=== PATIENT | male | born 1940 | race Caucasian/White ===

== ENCOUNTER → 2020-05-05 10:56 | Outpatient (CLI) | payer MEDICARE, OTHER, SELFPAY ==
--- NOTE | 2020-05-05 | DI.MRI.S_ITS ---
PROCEDURE: MR LUMBAR SPINE WO CON INDICATIONS: Radiculopathy, lumbar region TECHNIQUE: Noncontrast sagittal T1 spin echo and T2 fast echo, sagittal STIR, axial T1 and T2 fast spin echo through the lumbar spine. In cases with scoliosis, additional coronal T2 fast spin echo may be performed. COMPARISON: [facility], MR, MR LUMBAR SPINE WITHOUT CONTRAST, 01/06/2013, 12:10. [facility] [place], CR, XR LUMBAR SPINE 2 OR 3 VIEWS, 11/19/2019, 13:34. FINDINGS: Image quality: Excellent. Alignment and Curvature: 5 lumbar type vertebral bodies are present by plain film. There is mild grade 1 retrolisthesis of L1 on L2, L2 on L3, and L5 on S1. Mild grade 1 anterolisthesis of L4 on L5. Bone Marrow: Marrow is of normal overall signal. No acute vertebral body compression fractures. Posterior fusion of L4-L5 is been performed with paired posterior rods and pedicle screws. There is mild reactive signal within the endplates adjacent to the T11-T12, L1-L2, L2-L3, L3-L4, and L5-S1 intervertebral discs. Spinal Cord: Conus medullaris terminates at the mid L1 level. Visualized cord demonstrates normal signal and size. Paraspinous Soft Tissues: No paravertebral masses. 45 mm diameter infrarenal abdominal aortic aneurysm is present. 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 L1-L2: Moderate disc desiccation. Mild diffuse disc bulge. Mild facet and ligamentum flavum hypertrophy. Mild canal stenosis. Moderate subarticular foraminal stenosis bilaterally. No change. L2-L3: Moderate disc desiccation. Mild diffuse disc bulge. Mild facet and ligamentum flavum hypertrophy. Mild epidural lipomatosis. Mild canal stenosis. Moderate right and mild left foraminal stenosis. No change. L3-L4: Severe disc height loss and desiccation. Moderate diffuse disc bulge/osteophyte. Moderate bilateral facet hypertrophy. Decreased, moderate canal stenosis. Increased, severe bilateral foraminal stenosis with bilateral L3 nerve root compression. L4-L5: Status post fusion. Severe disc height loss. Mild residual diffuse disc bulge. Mild bilateral facet hypertrophy. There is decreased, moderate canal stenosis. There is no change in severe bilateral foraminal stenosis with bilateral L4 nerve root compression. L5-S1: Moderate disc height loss and desiccation. Mild diffuse disc bulge with superimposed broad-based right far lateral protrusion. Moderate bilateral facet hypertrophy. Mild canal stenosis. Mild left foraminal stenosis is unchanged. There is increased, severe right foraminal stenosis with right L5 nerve root compression. IMPRESSION: 1. Aortoiliac aneurysms. 2. Multilevel degenerative disc and facet disease, as well as ligamentum flavum hypertrophy and epidural lipomatosis. 3. Postsurgical sequelae. 4. Multilevel canal stenoses, worst at L3-L4 and L4-L5, where there are moderate canal stenosis present. 5. Multilevel foraminal stenoses, worst at L3-L4, L4-L5, and L5-S1 where there is associated intraforaminal nerve root compression as described above. Recommend correlation with clinical symptoms to ascertain relevance of these findings. Dictated by: Joseph Silveira M.D. on 05/05/2020 at 11:43 Approved by: Joseph Silveira M.D. on 05/05/2020 at 11:49
== END ==
PROVIDERS: Referring Provider Physical Medicine & Rehabilitation; Visit Provider Physical Medicine & Rehabilitation
DX: I71.4 Abdominal aortic aneurysm, without rupture (principal); I72.3 Aneurysm of iliac artery; M51.16 Intervertebral disc disorders with radiculopathy, lumbar region; M51.17 Intervertebral disc disorders with radiculopathy, lumbosacral region; M48.061 Spinal stenosis, lumbar region without neurogenic claudication; M48.07 Spinal stenosis, lumbosacral region; E88.2 Lipomatosis, not elsewhere classified; Z98.1 Arthrodesis status
CPT/HCPCS: 72148

== ENCOUNTER → 2020-12-22 10:07 | Outpatient (CLI) | payer MEDICARE, OTHER, SELFPAY ==
--- NOTE | 2020-12-22 | DI.CT.S_ITS ---
PROCEDURE: CT CHEST WO CON INDICATIONS: Other nonspecific abnormal finding of lung field TECHNIQUE: Noncontrast 5 mm thick sections acquired from the pulmonary apices to the posterior costophrenic angles. 1 mm lung window, 5 mm thick coronal and sagittal and 7 mm axial MIP reformats were then acquired. For radiation dose reduction, the following was used: automated exposure control, adjustment of mA and/or kV according to patient size. COMPARISON: [facility], , CT THORAX W/O CONTRAST, 12/17/2017, 8:28. [facility], , CT THORAX W/O CONTRAST, 09/05/2018, 9:18. FINDINGS: Lungs: Scattered subsegmental atelectasis and/or scarring. No focal consolidation. Upper lobe predominant centrilobular emphysema as before. Airway thickening in keeping with nonspecific bronchitis and/or reactive airways disease. There is unchanged appearance of 7 mm pulmonary nodule involving the left fissure, with adjacent smaller more medial fissural nodular thickening also unchanged. In the right lung, there is unchanged appearance of 6-7 mm nodule seen on image 200 series 3 as well as more inferiorly on image 216/3 measuring 5 mm. Overall, grossly stable examination since 09/05/18 Pleura: No pleural effusion or pneumothorax. Heart: Heart size is normal. No pericardial effusion. Mild to moderate coronary artery calcifications. Chest nodes: Normal. Thyroid gland: Negative Aorta: Normal in size. Pulmonary arteries: Normal Esophagus: Normal Upper abdomen: Low-attenuation presumed left adrenal adenoma is unchanged since 2019. . Bones: Normal. IMPRESSION: Overall, stable appearance of bilateral subcentimeter nodular foci since 2019 therefore presumed sequela of prior granulomatous disease. Redemonstrated severe bilateral upper lobe predominant centrilobular emphysema. Scattered subsegmental atelectasis and/or scarring. No focal consolidation. Additional chronic and incidental findings as above. Screening lung CT could be performed in 1 year if the patient meets threshold criteria. Dictated by: James Maria M.D. on 12/22/2020 at 13:42 Approved by: James Maria M.D. on 12/22/2020 at 13:49
== END ==
PROVIDERS: PCP Family Medicine; Referring Provider Family Medicine; Visit Provider Family Medicine
DX: R91.8 Other nonspecific abnormal finding of lung field (principal); J43.2 Centrilobular emphysema
CPT/HCPCS: 71250

== ENCOUNTER → 2020-12-23 09:30 | Outpatient (CLI) | payer MEDICARE, OTHER, SELFPAY ==
--- NOTE | 2020-12-23 | DI.US.S_ITS ---
PROCEDURE: US RETRO PERITONEAL LIMITED INDICATIONS: HX AAA TECHNIQUE: Real time scanning was performed of the aorta and iliac arteries, with image documentation. COMPARISON: None. FINDINGS: Aorta: Aortic stent graft is been placed but is suboptimally visualized by ultrasound. Proximal aortic diameter measures 3.0 cm. Mid-aorta measures 2.9 cm. Distal aortic diameter 4.8 cm AP x 5.7 cm transversely cm. Moderate amount of intraluminal thrombus present. Iliac arteries: Right common iliac artery measures 1 point cm. Left common iliac artery measures 0.7 cm. IMPRESSION: Aortic stent graft has been placed and is suboptimally visualized. Distal abdominal aortic aneurysm measuring up to 5.7 cm in maximal transverse diameter. May consider CT for further assessment. Dictated by: Leonides TOURE Interpreted: Crow Renee MD on 12/23/2020 at 12:08 Transcribed by: TRISHA on 12/23/2020 at 12:13 Approved by: Crow Renee M.D. on 12/23/2020 at 12:44
== END ==
PROVIDERS: PCP Family Medicine; Referring Provider Family Medicine; Visit Provider Family Medicine
DX: I71.4 Abdominal aortic aneurysm, without rupture (principal); Z86.79 Personal history of other diseases of the circulatory system
CPT/HCPCS: 76775

== ENCOUNTER 2021-12-26 14:47 | Emergency (ER) | payer MEDICARE, OTHER, SELFPAY ==
[2021-12-26] VITALS (14 sets, daily range): BP systolic 78–136; BP diastolic 48–66; PULSE 69–115; RESP 16–25; TEMP 36.4; O2SAT 90–97; BMI 27.1
--- NOTE | 2021-12-26 15:12 | ED_ITS ---
HPI - Abdominal Pain General Chief Complaint: Abdominal Pain Stated Complaint: vomiting/abd. pain/dizzy Time Seen by Provider: 12/26/21 14:53 Source: patient and family Mode of arrival: Wheelchair History of Present Illness HPI narrative: Patient is an 81-year-old male history of hypertension hypothyroid cardiac arrhythmia which he says is not atrial fibrillation presenting today with vomiting for the last 4 days. He says he is unable to keep anything down. He feels dizzy and lightheaded whenever he stands up. He has some lower abdominal pain as well. Denies any diarrhea. No fever chills chest pain heart palpitations shortness of breath. He has not passed out. He just feels very unsteady on his feet. Related Data Previous Rx's Medication Instructions Recorded ondansetron 4 mg disintegrating 4 mg PO Q8H PRN nausea and 12/26/21 tablet vomiting #10 tabs Allergies Allergy/AdvReac Type Severity Reaction Status Date / Time No Known Drug Allergies Allergy Verified 12/26/21 15:24 Review of Systems Review of Systems Narrative: GENERAL: Denies chills, fatigue, malaise, fever, sweats, travel HEENT: Denies sinus pain, ear pain, sore throat, difficulty swallowing, neck pain RESPIRATORY: Denies dyspnea, cough, wheezing, hemoptysis, sputum. CARDIOVASCULAR: Denies chest pain, palpitations, orthopnea, edema GASTROINTESTINAL: See HPI : Denies dysuria, frequency, incontinence, hematuria, urinary retention, flank pain. MUSCULOSKELETAL: Denies weakness, joint pain, or bony pain SKIN: No rash, no erythema, no pruritus NEUROLOGIC: Denies weakness, dizziness, headache, numbness, change in speech, confusion PSYCHIATRIC: No concerning psychosocial issues. 12 point review of systems is negative except for those stated above and HPI Patient History Social History Smoking Status: Never smoker Smoking Status: Never smoker alcohol intake frequency: 0-2 drinks per day Substance Use Type: does not use Exam Initial Vital Signs Initial Vital Signs: Vital Signs Temperature 97.5 F L 12/26/21 14:58 Pulse Rate 91 H 12/26/21 14:58 Respiratory Rate 22 12/26/21 14:58 Blood Pressure 127/63 12/26/21 14:58 Pulse Oximetry 93 12/26/21 14:58 Oxygen Delivery Method 12/26/21 14:58 GENERAL: Alert pleasant 81-year-old male and in no acute distress. HEENT: Head atraumatic,EOMI, pupils reactive, face symmetric, moist mucous membranes CARDIOVASCULAR: Irregularly irregular RESPIRATORY: Breath sounds equal bilaterally, no wheezes rales or rhonchi. ABDOMEN: Soft, umbilical hernia present and reducible, nontender no guarding no rebound no right upper quadrant pain no epigastric pain EXTREMITIES: Normal range of motion, no clubbing or edema. Neurovascularly intact NEUROLOGICAL: Alert and oriented x4. SKIN: Warm, dry, no laceration, no petechiae, no rashes or lesions. Course Orders Ordered: ED Orders 12/26/21 14:50 Lactate (Lactic Acid) Stat Troponin & CK Cardiac Panel Stat 12/26/21 14:55 Complete Blood Count AUTO DIFF Stat Comprehensive Metabolic Panel Stat Lipase Stat 12/26/21 15:13 Chest [XR chest 1V] Stat EKG-12 Lead Stat 12/26/21 16:13 CT abdomen pelvis w con Stat 12/26/21 17:30 Urine Microscopic Stat Discontinued Medications Sodium Chloride (Normal Saline 0.9%) 1,000 mls @ 1,000 mls/hr IV BOLUS ONE Stop: 12/26/21 16:12 Last Infusion: 12/26/21 16:17 Dose: 0 mls/hr Documented By: Admin: 12/26/21 15:24 Dose: 1,000 mls/hr Documented By: AT Sodium Chloride (Normal Saline 0.9%) 1,000 mls @ 1,000 mls/hr IV BOLUS ONE Stop: 12/26/21 17:12 Last Infusion: 12/26/21 17:45 Dose: 0 mls/hr Documented By: Admin: 12/26/21 16:42 Dose: 1,000 mls/hr Documented By: AT Ondansetron HCl (Ondansetron 4 Mg/2 Ml Inj) 4 mg IV NOW ONE Stop: 12/26/21 17:29 Last Admin: 12/26/21 17:47 Dose: 4 mg Documented By: CHAO Vital Signs Vital signs: Vital Signs - 8 hr 12/26/21 14:58 12/26/21 15:21 12/26/21 15:23 Temperature 97.5 F L Pulse Rate 91 H 95 H Pulse Rate [Orthostatic Lying] 83 Pulse Rate [Orthostatic Sitting] 101 H Pulse Rate [Orthostatic Standing] 115 H Respiratory Rate 22 20 Blood Pressure 127/63 Blood Pressure [Orthostatic Lying] 134/66 Blood Pressure [Orthostatic Sitting] 81/54 L Blood Pressure [Orthostatic Standing] 78/48 L Pulse Oximetry 93 92 Oxygen Delivery Method Room Air Room Air 12/26/21 15:25 12/26/21 15:25 12/26/21 15:30 Temperature Pulse Rate 94 H Pulse Rate [Orthostatic Lying] Pulse Rate [Orthostatic Sitting] Pulse Rate [Orthostatic Standing] Respiratory Rate 18 Blood Pressure 108/57 L 94/56 L Blood Pressure [Orthostatic Lying] Blood Pressure [Orthostatic Sitting] Blood Pressure [Orthostatic Standing] Pulse Oximetry 91 Oxygen Delivery Method Room Air 12/26/21 15:30 12/26/21 16:00 12/26/21 16:01 Temperature Pulse Rate 86 84 80 Pulse Rate [Orthostatic Lying] Pulse Rate [Orthostatic Sitting] Pulse Rate [Orthostatic Standing] Respiratory Rate 19 23 21 Blood Pressure Blood Pressure [Orthostatic Lying] Blood Pressure [Orthostatic Sitting] Blood Pressure [Orthostatic Standing] Pulse Oximetry 91 95 Oxygen Delivery Method Room Air 12/26/21 16:01 12/26/21 16:30 12/26/21 16:30 Temperature Pulse Rate 79 Pulse Rate [Orthostatic Lying] Pulse Rate [Orthostatic Sitting] Pulse Rate [Orthostatic Standing] Respiratory Rate 19 Blood Pressure 102/65 118/56 L Blood Pressure [Orthostatic Lying] Blood Pressure [Orthostatic Sitting] Blood Pressure [Orthostatic Standing] Pulse Oximetry 97 Oxygen Delivery Method 12/26/21 17:00 12/26/21 17:00 12/26/21 18:06 Temperature Pulse Rate 72 80 Pulse Rate [Orthostatic Lying] Pulse Rate [Orthostatic Sitting] Pulse Rate [Orthostatic Standing] Respiratory Rate 21 16 Blood Pressure 121/57 L Blood Pressure [Orthostatic Lying] Blood Pressure [Orthostatic Sitting] Blood Pressure [Orthostatic Standing] Pulse Oximetry 97 90 L Oxygen Delivery Method 12/26/21 17:30 12/26/21 17:30 12/26/21 18:00 Temperature Pulse Rate 69 Pulse Rate [Orthostatic Lying] Pulse Rate [Orthostatic Sitting] Pulse Rate [Orthostatic Standing] Respiratory Rate 25 H Blood Pressure 128/60 114/54 L Blood Pressure [Orthostatic Lying] Blood Pressure [Orthostatic Sitting] Blood Pressure [Orthostatic Standing] Pulse Oximetry 95 Oxygen Delivery Method 12/26/21 18:00 12/26/21 18:04 12/26/21 18:04 Temperature Pulse Rate 88 77 Pulse Rate [Orthostatic Lying] Pulse Rate [Orthostatic Sitting] Pulse Rate [Orthostatic Standing] Respiratory Rate 20 19 Blood Pressure 136/62 Blood Pressure [Orthostatic Lying] Blood Pressure [Orthostatic Sitting] Blood Pressure [Orthostatic Standing] Pulse Oximetry 93 Oxygen Delivery Method 12/26/21 18:30 12/26/21 18:30 Temperature Pulse Rate 76 Pulse Rate [Orthostatic Lying] Pulse Rate [Orthostatic Sitting] Pulse Rate [Orthostatic Standing] Respiratory Rate 18 Blood Pressure 114/64 Blood Pressure [Orthostatic Lying] Blood Pressure [Orthostatic Sitting] Blood Pressure [Orthostatic Standing] Pulse Oximetry 96 Oxygen Delivery Method MDM - Abdominal Pain Lab Data Result diagrams: 12/26/21 14:55 12/26/21 14:55 Labs: Lab Results 12/26/21 12/26/21 12/26/21 Range/Units 14:50 14:50 14:55 WBC 13.5 H (4.5-11.0) X10^3/uL RBC 5.33 (4.5-5.9) X10^6/uL Hgb 14.4 (13.5-17.5) g/dL Hct 42.9 (41-53) % MCV 80.5 (80-100) fL MCH 27.0 (26-34) PG MCHC 33.5 (30-36) % RDW 16.2 H (11.6-14.8) % Plt Count 189 (150-400) X10^3/uL Neut % (Auto) 86.0 H (50-75) % Lymph % (Auto) 8.3 L (25-40) % [place] % (Auto) 5.1 (3-14) % Eos % (Auto) 0.0 L (2-4) % Baso % (Auto) 0.6 (0-2) % Neut # (Auto) 62740 H (6210-0882) /uL Lymph # (Auto) 1100 (0831-6431) /uL [place] # (Auto) 700 (0-900) /uL Eos # (Auto) 0 (0-450) /uL Baso # (Auto) 100 (0-100) /uL Sodium (137-145) mmol/L Potassium (3.4-5.1) mmol/L Chloride (98-107) mmol/L Carbon Dioxide (22-32) mmol/L BUN (9-20) mg/dL Creatinine (0.66-1.25) mg/dL Estimated GFR (>60) mL/min BUN/Creatinine Ratio (6-22) Glucose (80-110) mg/dL Lactate 3.0 H (0.7-2.1) mmol/L Calcium (8.4-10.2) mg/dL Total Bilirubin (0.2-1.3) mg/dL AST (17-59) IU/L ALT (<50) IU/L Alkaline Phosphatase (38-126) U/L Total Creatine Kinase 67 (55-170) U/L CK-MB (CK-2) TNP CK-MB (CK-2) Rel Index TNP Troponin I 0.020 (0.01-0.034) ng/mL Total Protein (6.3-8.2) g/dL Albumin (3.5-5.0) g/dL Globulin (1.7-4.1) g/dL Albumin/Globulin Ratio (1.0-2.8) Lipase (23-300) U/L Urine RBC (0-5/HPF) Urine WBC (0-5/HPF) Urine Bacteria (None) Ur Culture Indicated? 12/26/21 12/26/21 12/26/21 Range/Units 14:55 17:30 17:40 WBC (4.5-11.0) X10^3/uL RBC (4.5-5.9) X10^6/uL Hgb (13.5-17.5) g/dL Hct (41-53) % MCV (80-100) fL MCH (26-34) PG MCHC (30-36) % RDW (11.6-14.8) % Plt Count (150-400) X10^3/uL Neut % (Auto) (50-75) % Lymph % (Auto) (25-40) % [place] % (Auto) (3-14) % Eos % (Auto) (2-4) % Baso % (Auto) (0-2) % Neut # (Auto) (9546-7342) /uL Lymph # (Auto) (6244-7654) /uL [place] # (Auto) (0-900) /uL Eos # (Auto) (0-450) /uL Baso # (Auto) (0-100) /uL Sodium 137 (137-145) mmol/L Potassium 3.9 (3.4-5.1) mmol/L Chloride 93 L (98-107) mmol/L Carbon Dioxide 31 (22-32) mmol/L BUN 33 H (9-20) mg/dL Creatinine 1.44 H (0.66-1.25) mg/dL Estimated GFR 48 L (>60) mL/min BUN/Creatinine Ratio 22.9 H (6-22) Glucose 154 H (80-110) mg/dL Lactate 1.9 (0.7-2.1) mmol/L Calcium 10.0 (8.4-10.2) mg/dL Total Bilirubin 0.8 (0.2-1.3) mg/dL AST 31 (17-59) IU/L ALT 22 (<50) IU/L Alkaline Phosphatase 72 (38-126) U/L Total Creatine Kinase (55-170) U/L CK-MB (CK-2) CK-MB (CK-2) Rel Index Troponin I (0.01-0.034) ng/mL Total Protein 8.2 (6.3-8.2) g/dL Albumin 4.6 (3.5-5.0) g/dL Globulin 3.6 (1.7-4.1) g/dL Albumin/Globulin Ratio 1.3 (1.0-2.8) Lipase 55 (23-300) U/L Urine RBC 0-1/hpf (0-5/HPF) Urine WBC 0-1/hpf (0-5/HPF) Urine Bacteria None seen (None) Ur Culture Indicated? Cult not indicated Point of care testing: Urine Dip Bedside Urine Glucose Negative Bedside Urine Bilirubin - Negative Bedside Urine Ketone - Negative Urine Specific [place] 1.005 Bedside Urine Occult Blood - Negative Bedside Urine pH 7.0 Bedside Urine Protein +/- 15 Bedside Urine Urobilinogen +/- 1mg Bedside Urine Nitrite - Negative Bedside Urine Leukocytes - Negative Esterase Imaging Data CT scan - abdomen/pelvis: Radiologist's Impression: CT Scan Report Signed Patient: Alonso Hackett MR#: [id number] : 1940 Acct:[id number] Age/Sex: 81 / M Date of Service: 12/26/21 Loc: ED Accession Number: [id number] ?? Procedure: CT abdomen pelvis w con Ordering Provider: Claudia Pal D.O. PROCEDURE:? CT ABDOMEN PELVIS W CON ? INDICATIONS:? vomiting hypotensive ? TECHNIQUE:? After the administration of IV contrast, axial sections were acquired from the lung bases to the pubic symphysis.? Coronal and sagittal reformats were performed.? For radiation dose reduction, the following was used:? automated exposure control, adjustment of mA and/or kV according to patient size. ? COMPARISON:? [facility], [place], PET NECK TO MID THIGH, 09/15/2021, 9:34.? Outside Film, CT, CT ANGIO ABDOMEN PELVIS, 12/25/2017, 11:29. ? FINDINGS:? Image quality:? Excellent.? ? Lung bases:? No pleural effusion.? Emphysematous change. Heart:? Aortic valvular calcification. ? ? ABDOMEN: Liver:? Focal fatty infiltration at the falciform ligament.? No suspicious lesion. Gallbladder:? Unremarkable. Biliary ducts:? Unremarkable.? ? Pancreas:? Unremarkable.? ? Spleen:? Unremarkable.? ? Adrenal Glands:? Bilateral adrenal nodules.? Left adrenal nodule measuring approximately 3.1 cm, (07/08), previously 3.7 cm in 2018. Right adrenal nodule measuring 1.8 cm, (06/30), previously 2.1 cm in 2018. Kidneys and Ureters:? No hydronephrosis.? Small simple appearing cyst at the inferior pole of the right kidney is unchanged since 2018. ? Stomach and Bowel:? Thickening of the small bowel in the left abdomen, ().? There is mild dilatation.? There is small air-fluid level and trace stranding in the adjacent fat. ? Diverticulosis.? No diverticulitis identified.? The appendix is not dilated s tomach is not distended. ? Peritoneum:? No abnormal intraperitoneal fluid.? No free air.? ? Ventral Wall:? Fat containing umbilical hernia. Abdominal Nodes:? No retroperitoneal or mesenteric adenopathy by size criteria.? Vessels:? Aortoiliac stent graft repair.? Aortic aneurysm sac measures 5 cm, not significantly changed since 2018. The grafts are patent.? No opacifications of the aneurysm sac is identified.? ? 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 This is at the distal aspect of the graft.? No opacification of the aneurysm sac seen.? ? Celiac and SMA arteries are patent.? No filling defect in the portal vein. ? PELVIS: Pelvic Organs:? Trace volume of free fluid in the pelvis. Bladder:? Unremarkable.? ? Pelvic Nodes: No enlarged lymph nodes.? Miscellaneous: No inguinal hernias are seen. ? ? ? Bones:? L4-L5 pedicle screw fixation.? Alignment is unchanged.? No compression fracture.? Multilevel DDD.? Loss of intervertebral disc space height. ? ? IMPRESSION:? 1. Thickened and dilated loop of small bowel in the left abdomen.? This likely represents an enteritis.? Developing bowel obstruction could have a similar appearance. ? 2. Trace volume of free fluid in the pelvis.? Favor reactive etiology.? No pneumoperitoneum. ? 3. Diverticulosis. ? 4. Aortoiliac stent graft repair is patent.? The right common iliac artery aneurysm is slightly increased in size compared to 2018.? No endoleak is identified.? ? 5. Bilateral adrenal nodules are similar to decreased in size compared to 2018. ? ? Dictated by: Bj Manzanares M.D. on 12/26/2021 at 16:33 ? ? Approved by: Bj Manzanares M.D. on 12/26/2021 at 16:47 ? Chest x-ray: Radiologist's Impression: BARRY Mariscal [id number] XRay Report Signed Patient: Alonso Hackett MR#: [id number] : 1940 Acct:[id number] Age/Sex: 81 / M Date of Service: 12/26/21 Loc: ED Accession Number: [id number] ?? Procedure: XR chest 1V Ordering Provider: Claudia Pal D.O. PROCEDURE:? XR CHEST 1V ? INDICATIONS:? chest pain ? TECHNIQUE:? One view of the chest was acquired.? ? COMPARISON:? [facility], CT, CT CHEST WITHOUT CONTRAST, 08/22/2021, 10:04. ? FINDINGS:? ? Surgical changes and devices:? None.? ? Lungs and pleura:? Lungs are clear.? No pleural effusions or pneumothorax.? ? Mediastinum:? Mediastinal contours appear normal.? Heart size is normal.? ? Bones and chest wall:? No suspicious bony lesions.? Overlying soft tissues appear unremarkable.? ? IMPRESSION:? No acute cardiopulmonary abnormality. Emphysematous change. ? ? Dictated by: Bj Manzanares M.D. on 12/26/2021 at 16:04 ? ? ECG Data Interpretation: Sinus rhythm rate 81 AK interval 134 QRS 98 QTC 462 with PVCs MDM Narrative Medical decision making narrative: Been vomiting for number of days. Surprisingly has electrolytes and creatinine are at baseline. His lactate however is elevated at 3. He did have an umbi lical hernia that was easily reducible. CT fortunately showed that his abdominal aortic aneurysm which she forgot to mention is stable and grafted. Patient certainly had positive orthostatics. He was given 2 L of fluid. His lactate improved. He is tolerating oral fluids. This is likely viral. It was noted that his oxygen may have dropped down however patient has absolutely no chest pain or shortness of breath. The waveform is certainly irregular which is consistent with his irregular heart rate. He is aware that he has an irregular rhythm it does appear to be sinus. He has had a loop recorder and his significant cardiac workup. I do not believe this to be new or an issue today. He ambulated around the ED and was not short of breath at all. I discussed with both he and symptoms and when to return to the emergency department Discharge Plan Departure Patient Disposition: Home Clinical Impression: Gastroenteritis Instructions: DI for Viral Gastroenteritis -- Adult Activity Restrictions/Additional Instructions: 1) You have been diagnosed with gastroenteritis 2) What to do: Drink frequent but small amounts of fluids. I recommend Gatorade or a Gatorade-like product, as it has small amounts of sugar and salts that improve fluid retention. 3) Take medications as directed Zofran 4 mg every 8 hours if the needed for nausea or vomit--> SENT TO [facility] 4) Follow up with your primary care provider in 2-3 days 5) Return to ER if you should have any new or worsening symptoms such as, unable to hold down fluids despite use of anti-nausea medications and the small volume oral rehydration strategy. Prescriptions: New ondansetron 4 mg tablet,disintegrating 4 mg PO Q8H PRN (Reason: nausea and vomiting) Qty: 10 0RF Visit Report Forms: Patient Portal/API
[2021-12-26 15:13] LABS: Add Manual Diff / Slide Review NO; Basophils Absolute Auto 100 /uL (0-100); Basophils Percent Auto 0.6 % (0-2); Eosinophils Absolute Auto 0 /uL (0-450); Hematocrit 42.9 % (41-53); Hemoglobin 14.4 g/dL (13.5-17.5); Lymphocytes Absolute Auto 1100 /uL (1100-4500); Lymphocytes Percent Auto 8.3 % (25-40); Mean Corpuscular HGB Conc 33.5 % (30-36); Mean Corpuscular Volume 80.5 fL (80-100); Monocytes Absolute Auto 700 /uL (0-900); Monocytes Percent Auto 5.1 % (3-14); Neutrophils Absolute Auto 11600 /uL (1500-7000); Platelet Count 189 X10^3/uL (150-400); Red Blood Cell Count 5.33 X10^6/uL (4.5-5.9); Red Cell Distribution Width 16.2 % (11.6-14.8); White Blood Cell Count 13.5 X10^3/uL (4.5-11.0)
--- NOTE | 2021-12-26 15:13 | DI.RAD.S_ITS ---
PROCEDURE: XR CHEST 1V INDICATIONS: chest pain TECHNIQUE: One view of the chest was acquired. COMPARISON: [facility], CT, CT CHEST WITHOUT CONTRAST, 08/22/2021, 10:04. FINDINGS: Surgical changes and devices: None. Lungs and pleura: Lungs are clear. No pleural effusions or pneumothorax. Mediastinum: Mediastinal contours appear normal. Heart size is normal. Bones and chest wall: No suspicious bony lesions. Overlying soft tissues appear unremarkable. IMPRESSION: No acute cardiopulmonary abnormality. Emphysematous change. Dictated by: Bj Manzanares M.D. on 12/26/2021 at 16:04 Approved by: Bj Manzanares M.D. on 12/26/2021 at 16:06
[2021-12-26] MEDS: SODIUM CHLORIDE 0.9% 1,000 ML 1000 ML IV ×2 (15:24→16:42)
[2021-12-26 15:49] LABS: Alanine Aminotransferase 22 IU/L (<50); Albumin 4.6 g/dL (3.5-5.0); Albumin Globulin Ratio 1.3 (1.0-2.8); Alkaline Phosphatase 72 U/L (38-126); Aspartate Aminotransferase 31 IU/L (17-59); BUN Creatinine Ratio 22.9 (6-22); Bilirubin Total 0.8 mg/dL (0.2-1.3); Blood Urea Nitrogen 33 mg/dL (9-20); Carbon Dioxide 31 mmol/L (22-32); Chloride 93 mmol/L (98-107); Estimated Glomerular Filt Rate 48 mL/min (>60); Globulin 3.6 g/dL (1.7-4.1); Glucose 154 mg/dL (80-110); HEMOLYSIS 36 (0-50); Lipase 55 U/L (23-300); Potassium 3.9 mmol/L (3.4-5.1); Sodium 137 mmol/L (137-145); Total Protein 8.2 g/dL (6.3-8.2)
[2021-12-26 15:49] LABS: Creatine Kinase 67 U/L (55-170)
--- NOTE | 2021-12-26 16:01 | PC.NURSE ---
Pt saturations noted 87%-91% on monitor, placed on 1L NC.
--- NOTE | 2021-12-26 16:13 | DI.CT.S_ITS ---
PROCEDURE: CT ABDOMEN PELVIS W CON INDICATIONS: vomiting hypotensive TECHNIQUE: After the administration of IV contrast, axial sections were acquired from the lung bases to the pubic symphysis. Coronal and sagittal reformats were performed. For radiation dose reduction, the following was used: automated exposure control, adjustment of mA and/or kV according to patient size. COMPARISON: [facility], [place], PET NECK TO MID THIGH, 09/15/2021, 9:34. Outside Film, CT, CT ANGIO ABDOMEN PELVIS, 12/25/2017, 11:29. FINDINGS: Image quality: Excellent. Lung bases: No pleural effusion. Emphysematous change. Heart: Aortic valvular calcification. ABDOMEN: Liver: Focal fatty infiltration at the falciform ligament. No suspicious lesion. Gallbladder: Unremarkable. Biliary ducts: Unremarkable. Pancreas: Unremarkable. Spleen: Unremarkable. Adrenal Glands: Bilateral adrenal nodules. Left adrenal nodule measuring approximately 3.1 cm, (2/25), previously 3.7 cm in 2018. Right adrenal nodule measuring 1.8 cm, (2/17), previously 2.1 cm in 2018. Kidneys and Ureters: No hydronephrosis. Small simple appearing cyst at the inferior pole of the right kidney is unchanged since 2018. Stomach and Bowel: Thickening of the small bowel in the left abdomen, (2/45). There is mild dilatation. There is small air-fluid level and trace stranding in the adjacent fat. Diverticulosis. No diverticulitis identified. The appendix is not dilated stomach is not distended. Peritoneum: No abnormal intraperitoneal fluid. No free air. Ventral Wall: Fat containing umbilical hernia. Abdominal Nodes: No retroperitoneal or mesenteric adenopathy by size criteria. Vessels: Aortoiliac stent graft repair. Aortic aneurysm sac measures 5 cm, not significantly changed since 2018. The grafts are patent. No opacifications of the aneurysm sac is identified. 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 This is at the distal aspect of the graft. No opacification of the aneurysm sac seen. Celiac and SMA arteries are patent. No filling defect in the portal vein. PELVIS: Pelvic Organs: Trace volume of free fluid in the pelvis. Bladder: Unremarkable. Pelvic Nodes: No enlarged lymph nodes. Miscellaneous: No inguinal hernias are seen. Bones: L4-L5 pedicle screw fixation. Alignment is unchanged. No compression fracture. Multilevel DDD. Loss of intervertebral disc space height. IMPRESSION: 1. Thickened and dilated loop of small bowel in the left abdomen. This likely represents an enteritis. Developing bowel obstruction could have a similar appearance. 2. Trace volume of free fluid in the pelvis. Favor reactive etiology. No pneumoperitoneum. 3. Diverticulosis. 4. Aortoiliac stent graft repair is patent. The right common iliac artery aneurysm is slightly increased in size compared to 2018. No endoleak is identified. 5. Bilateral adrenal nodules are similar to decreased in size compared to 2018. Dictated by: Bj Manzanares M.D. on 12/26/2021 at 16:33 Approved by: Bj Manzanares M.D. on 12/26/2021 at 16:47
[2021-12-26 17:18] LABS: Reflexed Lactate in 2 Hours Y
[2021-12-26] MEDS: ONDANSETRON 4 MG/2 ML INJ IV (17:47)
[2021-12-26 18:07] LABS: Lactate 2HR (Lactic Acid Rflx) 1.9 mmol/L (0.7-2.1)
[2021-12-26 18:26] LABS: Bacteria Urine None Seen; Culture Indicated Urine Cult Not Indicated; RBC Urine 0-1/HPF (0-5/HPF); WBC Urine 0-1/HPF (0-5/HPF)
== END 2021-12-26 18:48 | disposition home or self-care (01) ==
PROVIDERS: Emergency Provider Emergency Medicine
DX: K52.9 Noninfective gastroenteritis and colitis, unspecified (principal); I95.1 Orthostatic hypotension; R07.9 Chest pain, unspecified; R11.10 Vomiting, unspecified
CPT/HCPCS: 36415; 71045; 74177; 80053; 81003; 81015; 82550; 83605; 83690; 84484; 85025; 93005; 93010; 96361; 96374; 99285; J2405; Q9967

== ENCOUNTER → 2022-06-19 12:17 | Outpatient (CLI) | payer MEDICARE, OTHER, SELFPAY ==
--- NOTE | 2022-06-19 12:18 | DI.ECHO.S_ITS ---
[facility] +---------+ : : [address] : : : : [id number] : : : : Phone: [phone] Echocardiogram Report + + :Name: AGUSTIN TANG Study Date: 06/19/2022 Height: 71 in : :[facility] ReadingLocation: Weight: 195 lb : : Gender: Male BSA: 2.1 m2 : :: 1940 Age: 82 yrs BP: 158/92 mmHg: :Reason For Study: AORTIC STENOSIS : :Ordering Physician: YASMEEN, : :VALERIE Banda Performed By: Desi Pratt : :Referring: VALERIE LAW : + + Interpretation Summary There is mild concentric left ventricular hypertrophy. The ejection fraction is estimated to be 60-65%. Grade II diastolic dysfunction. The right ventricle is normal in size and function. Mild biatrial enlargement. There is mild mitral regurgitation. There is severe aortic stenosis. There is mild tricuspid regurgitation. The right ventricular systolic pressure is estimated to be at least 56 mmHg based on an estimated right atrial pressure of 3 mm Hg. Compared to the prior study dated 03/17/2021, the aortic stenosis has progressed and is now severe. Procedure: A two-dimensional transthoracic echocardiogram with color flow and Doppler was performed. The study quality was technically adequate. Comparison is made with the echocardiogram of 03/17/2021. The patient was in sinus rhythm with heart rates between 56-71 bpm during the exam. Left Ventricle: The left ventricle is normal in size. There is mild concentric left ventricular hypertrophy. The ejection fraction is estimated to be 60-65%. Grade II diastolic dysfunction. Right Ventricle: The right ventricle is normal in size and function. Atria: The left atrium is mildly dilated. The right atrium is mildly dilated. There is no Doppler evidence for an interatrial shunt. Mitral Valve: The mitral valve is normal in structure and function. There is mild mitral regurgitation. Aortic Valve: The aortic valve is severely calcified. There is moderate to severely reduced leaflet mobility. There is severe aortic stenosis. The peak aortic velocity is 4.2 m/sec. The aortic valve mean gradient is 40 mmHg. The calculated aortic valve area is 0.97 cm2. There is trace aortic regurgitation. Tricuspid Valve: The tricuspid valve is normal in structure and function. There is mild tricuspid regurgitation. The right ventricular systolic pressure is estimated to be at least 56 mmHg based on an estimated right atrial pressure of 3 mm Hg. Pulmonic Valve: The pulmonic valve leaflets are thin and pliable; valve motion is normal. There is mild pulmonic regurgitation. Great Vessels: The aortic root is normal size. The dimensions of the ascending aorta are normal. The IVC is of normal diameter and collapses greater than 50% with a sniff. This suggests a low right atrial pressure of 3 mm Hg. Pericardium/ Pleura There is no pericardial effusion. There is no pleural effusion. MMode/2D Measurements & Calculations LVIDd: 5.3 cm LVOT diam: 2.2 cm LVIDs: 3.8 cm Ao root diam: 3.5 cm FS: 29.1 % asc Aorta Diam: 3.3 cm EPSS: 0.54 cm Ao Arch Diam (Prox Trans): 2.6 cm IVSd: 1.1 cm LVPWd: 1.2 cm LV jeff. diameter/BSA (cm/m^2): 2.6 LV sys. diameter/BSA (cm/m^2): 1.8 LA A2 area: 30.8 cm2 RA long axis: 6.3 cm LA A4 area: 24.7 cm2 RA area: 23.5 cm2 LA length (vol): 6.7 cm RA vol: 75.3 ml LA vol: 95.8 ml RA : 36.1 ml/m2 LA vol index: 45.9 ml/m2 IVC diam: 1.5 cm RVD1 (basal): 3.2 cm RVD2 (mid): 2.3 cm TAPSE: 2.3 cm Doppler Measurements & Calculations Ao V2 max: 416.4 cm/sec LVOT Max Enrique: 105.0 cm/sec Ao V2 mean: 277.8 cm/sec LV V1 max P.4 mmHg Ao max P.2 mmHg LV V1 VTI: 24.4 cm Ao mean P.1 mmHg JADE(I,D): 1.0 cm2 Ao V2 VTI: 91.9 cm JADE(V,D): 0.97 cm2 sev ratio: 0.27 JADE indexed to BSA (cm^2/m^2): 0.49 MV E max enrique: 71.5 cm/sec TR max enrique: 362.8 cm/sec MV A max enrique: 76.5 cm/sec TR max P.6 mmHg MV E/A: 0.93 Med Peak E' Enrique: 6.2 cm/sec E/E' med: 11.6 Lat Peak E' Enrique: 6.6 cm/sec E/E' lat: 10.9 E/e' average: 11.2 MV dec time: 0.22 sec SV([facility]): 93.8 ml Reading Physician:02:31 PM
== END ==
PROVIDERS: Referring Provider Internal Medicine Cardiovascular Disease; Visit Provider Internal Medicine Cardiovascular Disease
DX: I08.3 Combined rheumatic disorders of mitral, aortic and tricuspid valves (principal)
CPT/HCPCS: 93306

== ENCOUNTER → 2022-07-25 15:55 | Outpatient (CLI) | payer MEDICARE, OTHER, SELFPAY ==
--- NOTE | 2022-07-25 15:57 | DI.MRI.S_ITS ---
PROCEDURE: MR LUMBAR SPINE WO CON INDICATIONS: Spinal stenosis, lumbar region TECHNIQUE: Noncontrast sagittal T1 spin echo and T2 fast echo, sagittal STIR, and T2 fast spin echo through the lumbar spine. In cases with scoliosis, additional coronal T2 fast spin echo may be performed. COMPARISON: [facility], MR, MR LUMBAR SPINE WO CON, 05/05/2020, 11:02. [facility], CR, XR LUMBAR SPINE 2 OR 3 VIEWS, 07/13/2022, 14:31. FINDINGS: Image quality: Diagnostic. There is artifact associated with the metallic hardware. Alignment and Curvature: Mild dextroconvex scoliotic curvature is seen. Mild retrolisthesis is seen at L1-L2 and L2-L3. Minimal anterolisthesis is seen at L3-L4. Grade 1 anterolisthesis is seen at L4-L5. Bone Marrow: Marrow is of normal overall signal. No acute vertebral body compression fractures. Spinal Cord: Conus medullaris terminates at the L1 level. Visualized cord demonstrates normal signal and size. Paraspinous Soft Tissues: No paravertebral masses. T12-L1: Mild loss of disc height is seen. Loss of disc signal is seen. Moderate disc bulge is seen, which is eccentric to the right. No significant neural foraminal or central canal narrowing can be seen. When comparison is made with the prior images, these findings are similar. L1-L2: Mild loss of disc height is seen. Loss of disc signal is seen. Moderate generalized disc bulge is seen. Mild to moderate facet hypertrophy is seen. At least moderate bilateral neural foraminal narrowing can be seen. Mild central canal narrowing is seen. No significant change from the prior. L2-L3: The disc height is well-preserved. Loss of disc signal is seen at this level. Moderate disc bulge is seen, which is eccentric to the right side. Moderate facet joint hypertrophy is seen. There is at least moderate left-sided and moderate to severe right-sided neural foraminal narrowing. There is a degree of compression seen upon the exiting nerve roots. Moderate central canal narrowing is seen. When comparison is made with the prior images, these findings are similar. L3-L4: Moderate to severe loss of disc height and disc signal can be seen. Reactive marrow endplate changes are seen, which are hyperintense on T1-weighted and T2-weighted imaging and most consistent with fatty metaplasia (Modic type II changes). Moderate generalized disc bulge is seen. Moderate to prominent facet hypertrophy can be seen. There is moderate to severe bilateral neural foraminal narrowing seen, with an associated a degree of compression seen upon the exiting nerve roots. Moderate central canal narrowing is seen. Stable from the prior study. L4-L5: Postoperative changes are seen at this level, with bilateral pedicle screws and vertical fixation rods. There has been removal of portions of the posterior elements. Moderate to severe loss of disc height and disc signal can be seen. Reactive marrow endplate changes are seen, which are hyperintense on T1-weighted and T2-weighted imaging and most consistent with fatty metaplasia (Modic type II changes). Moderate generalized disc bulge is seen. There is moderate to severe bilateral neural foraminal narrowing seen, with an associated a degree of compression seen upon the exiting nerve roots. Moderate central canal narrowing is seen. When comparison is made with the prior images, these findings are similar. L5-S1: The disc height is well-preserved. Loss of disc signal is seen at this level. Moderate disc bulge is seen, which is eccentric to the right. At least moderate facet hypertrophy is seen. There is at least moderate left-sided and moderate to severe right-sided neural foraminal narrowing. There is a degree of compression seen upon the exiting nerve roots. Mild central canal narrowing is seen. When comparison is made with the prior images, these findings are similar. IMPRESSION: Multiple levels of significant lumbar spine degenerative change are seen, which are similar to the 2019 MRI examination. Dictated by: Yamil Turpin M.D. on 07/26/2022 at 15:50 Approved by: Brian Light M.D. on 08/02/2022 at 15:10
== END ==
PROVIDERS: PCP Internal Medicine; Referring Provider Orthopaedic Surgery Orthopaedic Surgery of the Spine; Visit Provider Orthopaedic Surgery Orthopaedic Surgery of the Spine
DX: M48.062 Spinal stenosis, lumbar region with neurogenic claudication (principal); M47.816 Spondylosis without myelopathy or radiculopathy, lumbar region; M47.817 Spondylosis without myelopathy or radiculopathy, lumbosacral region
CPT/HCPCS: 72148

== ENCOUNTER 2022-10-10 18:26 | Emergency (ER) | payer MEDICARE, OTHER, SELFPAY ==
[2022-10-10] VITALS (10 sets, daily range): BP systolic 110–145; BP diastolic 56–84; PULSE 79–90; RESP 18–24; TEMP 37.5; O2SAT 94–98; BMI 27.8
--- NOTE | 2022-10-10 18:44 | DI.RAD.S_ITS ---
PROCEDURE: XR CHEST 2V INDICATIONS: weakness, fever TECHNIQUE: 2 views of the chest were acquired. COMPARISON: [facility], CT, CT CHEST WITHOUT CONTRAST, 10/02/2022, 10:42. [facility], CT, CT CHEST WITH CONTRAST, 03/30/2022, 10:54. [facility], CR, XR CHEST 1V, 12/26/2021, 15:13. FINDINGS: Surgical changes and devices: None. Lungs and pleura: Lucencies in lungs are compatible with emphysema. Bibasilar infiltrates or atelectasis. No pleural effusions or pneumothorax. Mediastinum: Mediastinal contours are normal. Heart size is normal. Bones and chest wall: No suspicious bony abnormalities. Soft tissues appear unremarkable. IMPRESSION: 1. Bibasilar pneumonia or atelectasis. 2. Emphysema. Dictated by: Rachel Menendez M.D. on 10/10/2022 at 19:36 Approved by: Rachel Menendez M.D. on 10/10/2022 at 19:36
--- NOTE | 2022-10-10 18:45 | ED_ITS ---
HPI - Weakness General Chief complaint: Weakness Stated complaint: Weakness and unsteady, fever Time Seen by Provider: 10/10/22 18:44 Source: patient and family Mode of arrival: Wheelchair History of Present Illness HPI Narrative: 82-year-old nonsmoker with history of hypertension, hyperlipidemia and diabetes presents with his in the chief complaint of 4 days of generalized weakness and fever as high as 102 at home. He denies much in the way of specific complaints specifically no headache or blurred vision, no runny nose, sore t hroat or cough. No chest pain or shortness of breath. He denies nausea, vomiting or diarrhea. He denies abdominal pain nor dysuria, frequency or urgency. He has no head, neck or back pain. Related Data Home Medications Medication Instructions Recorded Confirmed acetaminophen 500 mg tablet 500 mg PO Q6H PRN Pain (Scale 08/22/22 08/22/22 Score 1-3) aspirin 81 mg tablet 81 mg PO DAILY 08/22/22 08/22/22 ferrous sulfate 325 mg (65 mg 325 mg PO DAILY 08/22/22 08/22/22 iron) tablet (iron) gabapentin 300 mg tablet 600 mg PO BEDTIME 08/22/22 08/22/22 hydrochlorothiazide 12.5 mg tablet 12.5 mg PO DAILY 08/22/22 08/22/22 ibuprofen 200 mg capsule mg 08/22/22 levothyroxine 150 mcg tablet 150 mcg PO DAILY 08/22/22 08/22/22 lisinopril 5 mg tablet 5 mg PO DAILY 08/22/22 08/22/22 metformin 500 mg tablet 500 mg PO BID 08/22/22 08/22/22 rosuvastatin 40 mg tablet 40 mg PO DAILY 08/22/22 08/22/22 tramadol 50 mg tablet 50 mg PO BID PRN Pain (Scale Score 08/22/22 08/22/22 1-3) Previous Rx's Medication Instructions Recorded ondansetron 4 mg disintegrating 4 mg PO Q8H PRN nausea and 12/26/21 tablet vomiting #10 tabs Allergies Allergy/AdvReac Type Severity Reaction Status Date / Time No Known Drug Allergies Allergy Verified 12/26/21 15:24 Review of Systems Review of Systems Narrative: GENERAL: See HPI HEENT: Denies sinus pain, ear pain, sore throat, difficulty swallowing, dizziness. RESPIRATORY: Denies dyspnea, cough, wheezing, hemoptysis, sputum. CARDIOVASCULAR: Denies chest pain, palpitations, orthopnea, edema, GASTROINTESTINAL: Denies nausea, vomiting, abdominal pain, diarrhea, constipation, melena. : Denies dysuria, frequency, incontinence, hematuria, urinary retention. MUSCULOSKELETAL: denies weakness, joint pain, or bony pain SKIN: Denies rash, skin lesions, or other NEUROLOGIC: Denies weakness, headache, numbness, change in speech, confusion, seizures, incoordination. PSYCHIATRIC: No concerning psychosocial issues. 12 point review of systems is negative except for those stated above Patient History Social History Smoking Status: Never smoker Smoking Status: Never smoker alcohol intake frequency: 0-2 drinks per day Substance Use Type: does not use Exam Narrative Exam Narrative: GENERAL: [82] year old patient appears stated age. Well-developed patient, in mild distress. HEAD: Atraumatic. Normocephalic. EYES: Pupils equal round and reactive. Extraocular motions intact. No scleral icterus. No injection or drainage. ENT: Nose without bleeding, purulent drainage. Throat without erythema, tonsillar hypertrophy or exudate. Airway patent. NECK: Trachea midline. Non tender CARDIOVASCULAR: Regular rate and rhythm without murmurs, gallops, or rubs. RESPIRATORY: Clear to auscultation. Breath sounds equal bilaterally. No wheezes, rales, or rhonchi. GASTROINTESTINAL: Abdomen soft, non-tender, nondistended. EXTREMITIES: No edema or joint tenderness. BACK: Nontender without deformity or crepitance. No flank tenderness. NEURO: AOx3. SKIN: No rash or erythema of visible areas Initial Vital Signs Initial Vital Signs: Vital Signs Temperature 99.5 F 10/10/22 18:34 Pulse Rate 84 10/10/22 18:34 Respiratory Rate 18 10/10/22 18:34 Blood Pressure 120/60 10/10/22 18:34 Pulse Oximetry 94 10/10/22 18:34 Oxygen Delivery Method Room Air 10/10/22 18:34 Course Orders Ordered: ED Orders 10/10/22 18:40 Ictotest Urine Stat Respiratory Panel (Film Array) Stat Urine Culture Stat Urine Microscopic Stat 10/10/22 18:44 XR chest 2V Stat 10/10/22 19:12 Complete Blood Count AUTO DIFF Stat Comprehensive Metabolic Panel Stat Lactate (Lactic Acid) Stat Procalcitonin Stat Troponin & CK Cardiac Panel Stat 10/10/22 19:25 Blood Culture Stat 10/10/22 19:41 EKG-12 Lead Stat Discontinued Medications Sodium Chloride (Normal Saline 0.9%) 1,000 mls @ 1,000 mls/hr IV BOLUS ONE Stop: 10/10/22 21:50 Last Infusion: 10/10/22 21:58 Dose: 0 mls/hr Documented By: Admin: 10/10/22 20:59 Dose: 1,000 mls/hr Documented By: Vital Signs Vital signs: Vital Signs - 8 hr 10/10/22 18:34 10/10/22 19:37 10/10/22 19:41 Temperature 99.5 F Pulse Rate 84 79 79 Pulse Rate [Orthostatic Lying] Pulse Rate [Orthostatic Sitting] Pulse Rate [Orthostatic Standing] Respiratory Rate 18 21 23 Blood Pressure 120/60 Blood Pressure [Orthostatic Lying] Blood Pressure [Orthostatic Sitting] Blood Pressure [Orthostatic Standing] Pulse Oximetry 94 Oxygen Delivery Method Room Air 10/10/22 19:41 10/10/22 20:00 10/10/22 20:00 Temperature Pulse Rate Pulse Rate [Orthostatic Lying] Pulse Rate [Orthostatic Sitting] Pulse Rate [Orthostatic Standing] Respiratory Rate Blood Pressure 130/67 130/64 Blood Pressure [Orthostatic Lying] Blood Pressure [Orthostatic Sitting] Blood Pressure [Orthostatic Standing] Pulse Oximetry 97 Oxygen Delivery Method 10/10/22 20:30 10/10/22 20:30 10/10/22 21:00 Temperature Pulse Rate 82 Pulse Rate [Orthostatic Lying] Pulse Rate [Orthostatic Sitting] Pulse Rate [Orthostatic Standing] Respiratory Rate Blood Pressure 127/58 L 145/68 H Blood Pressure [Orthostatic Lying] Blood Pressure [Orthostatic Sitting] Blood Pressure [Orthostatic Standing] Pulse Oximetry 98 Oxygen Delivery Method 10/10/22 21:00 10/10/22 21:30 10/10/22 21:31 Temperature Pulse Rate 81 81 Pulse Rate [Orthostatic Lying] Pulse Rate [Orthostatic Sitting] Pulse Rate [Orthostatic Standing] Respiratory Rate Blood Pressure 110/74 Blood Pressure [Orthostatic Lying] Blood Pressure [Orthostatic Sitting] Blood Pressure [Orthostatic Standing] Pulse Oximetry 96 97 Oxygen Delivery Method 10/10/22 21:31 10/10/22 21:59 10/10/22 22:05 Temperature Pulse Rate 81 Pulse Rate [Orthostatic Lying] 90 Pulse Rate [Orthostatic Sitting] 84 Pulse Rate [Orthostatic Standing] 79 Respiratory Rate 24 20 Blood Pressure Blood Pressure [Orthostatic Lying] 123/56 L Blood Pressure [Orthostatic Sitting] 130/84 Blood Pressure [Orthostatic Standing] 123/58 L Pulse Oximetry 97 Oxygen Delivery Method Room Air MDM - Weakness Lab Data 10/10/22 19:12 10/10/22 19:12 Labs: Lab Results 10/10/22 10/10/22 10/10/22 Range/Units 18:40 18:40 19:12 WBC 10.4 (4.5-11.0) X10^3/uL RBC 4.18 L (4.5-5.9) X10^6/uL Hgb 11.5 L (13.5-17.5) g/dL Hct 34.2 L (41-53) % MCV 81.8 (80-100) fL MCH 27.4 (26-34) PG MCHC 33.5 (30-36) % RDW 16.5 H (11.6-14.8) % Plt Count 130 L (150-400) X10^3/uL Neut % (Auto) 84.3 H (50-75) % Lymph % (Auto) 8.1 L (25-40) % Lake % (Auto) 7.3 (3-14) % Eos % (Auto) 0.1 L (2-4) % Baso % (Auto) 0.2 (0-2) % Neut # (Auto) 8800 H (7239-5394) /uL Lymph # (Auto) 800 L (1474-1931) /uL Lake # (Auto) 800 (0-900) /uL Eos # (Auto) 0 (0-450) /uL Baso # (Auto) 0 (0-100) /uL Sodium (137-145) mmol/L Potassium (3.4-5.1) mmol/L Chloride (98-107) mmol/L Carbon Dioxide (22-32) mmol/L BUN (9-20) mg/dL Creatinine (0.66-1.25) mg/dL Estimated GFR (>60) mL/min BUN/Creatinine Ratio (6-22) Glucose (80-110) mg/dL Lactate (0.7-2.1) mmol/L Calcium (8.4-10.2) mg/dL Total Bilirubin (0.2-1.3) mg/dL AST (17-59) IU/L ALT (<50) IU/L Alkaline Phosphatase (38-126) U/L Total Creatine Kinase (55-170) U/L CK-MB (CK-2) CK-MB (CK-2) Rel Index Troponin I (0.01-0.034) ng/mL Total Protein (6.3-8.2) g/dL Albumin (3.5-5.0) g/dL Globulin (1.7-4.1) g/dL Albumin/Globulin Ratio (1.0-2.8) Procalcitonin (<0.5) ng/mL Ur Bilirubin Confirm Negative (Negative) Urine RBC 5-10/hpf H (0-5/HPF) Urine WBC 5-10/hpf H (0-5/HPF) Ur Squamous Epith Cells 0-1 /hpf (0-5/HPF) Amorphous Sediment 1+ Urine Bacteria Few (2-10) H (None) Hyaline Casts 10-30/lpf (None) Granular Casts 10-30/lpf (None) Urine Mucus 2+ H (Negative) Ur Culture Indicated? Specimen cultured Chlamy pneumoniae PCR Not detected (Not Detect) Adenovirus (PCR) Not detected (Not Detect) B. pertussis DNA (PCR) Not detected (Not Detecte) B.parapertussis DNA PCR Not detected (Not Detecte) Coronavirus OC43 (PCR) Not detected (Not Detect) Coronavirus HKU1 (PCR) Not detected (Not Detect) Coronavirus 229E (PCR) Not detected (Not Detect) SARS-CoV-2 (PCR) Not detected (Not Detecte) Coronavirus NL63 (PCR) Not detected (Not Detect) Human Metapneumovir PCR Not detected (Not Detect) Influenza Type A (PCR) Not detected (Not Detect) Influenza Type B (PCR) Not detected (Not Detect) M. pneumoniae (PCR) Not detected (Not Detect) Parainfluenza 1 (PCR) Not detected (Not Detect) Parainfluenza 2 (PCR) Not detected (Not Detect) Parainfluenza 3 (PCR) Not detected (Not Detect) Parainfluenza 4 (PCR) Not detected (Not Detect) RSV (PCR) Not detected (Not Detect) Entero/Rhino (PCR) Not detected (Not Detect) 10/10/22 10/10/22 Range/Units 19:12 19:12 WBC (4.5-11.0) X10^3/uL RBC (4.5-5.9) X10^6/uL Hgb (13.5-17.5) g/dL Hct (41-53) % MCV (80-100) fL MCH (26-34) PG MCHC (30-36) % RDW (11.6-14.8) % Plt Count (150-400) X10^3/uL Neut % (Auto) (50-75) % Lymph % (Auto) (25-40) % Lake % (Auto) (3-14) % Eos % (Auto) (2-4) % Baso % (Auto) (0-2) % Neut # (Auto) (2311-4208) /uL Lymph # (Auto) (2339-6507) /uL Lake # (Auto) (0-900) /uL Eos # (Auto) (0-450) /uL Baso # (Auto) (0-100) /uL Sodium 132 L (137-145) mmol/L Potassium 4.4 (3.4-5.1) mmol/L Chloride 94 L (98-107) mmol/L Carbon Dioxide 28 (22-32) mmol/L BUN 38 H (9-20) mg/dL Creatinine 1.50 H (0.66-1.25) mg/dL Estimated GFR 46 L (>60) mL/min BUN/Creatinine Ratio 25.3 H (6-22) Glucose 103 (80-110) mg/dL Lactate 1.3 (0.7-2.1) mmol/L Calcium 8.5 (8.4-10.2) mg/dL Total Bilirubin 0.8 (0.2-1.3) mg/dL AST 23 (17-59) IU/L ALT 21 (<50) IU/L Alkaline Phosphatase 56 (38-126) U/L Total Creatine Kinase 184 H (55-170) U/L CK-MB (CK-2) TNP CK-MB (CK-2) Rel Index TNP Troponin I 0.030 (0.01-0.034) ng/mL Total Protein 7.5 (6.3-8.2) g/dL Albumin 4.2 (3.5-5.0) g/dL Globulin 3.3 (1.7-4.1) g/dL Albumin/Globulin Ratio 1.3 (1.0-2.8) Procalcitonin 0.33 (<0.5) ng/mL Ur Bilirubin Confirm (Negative) Urine RBC (0-5/HPF) Urine WBC (0-5/HPF) Ur Squamous Epith Cells (0-5/HPF) Amorphous Sediment Urine Bacteria (None) Hyaline Casts (None) Granular Casts (None) Urine Mucus (Negative) Ur Culture Indicated? Chlamy pneumoniae PCR (Not Detect) Adenovirus (PCR) (Not Detect) B. pertussis DNA (PCR) (Not Detecte) B.parapertussis DNA PCR (Not Detecte) Coronavirus OC43 (PCR) (Not Detect) Coronavirus HKU1 (PCR) (Not Detect) Coronavirus 229E (PCR) (Not Detect) SARS-CoV-2 (PCR) (Not Detecte) Coronavirus NL63 (PCR) (Not Detect) Human Metapneumovir PCR (Not Detect) Influenza Type A (PCR) (Not Detect) Influenza Type B (PCR) (Not Detect) M. pneumoniae (PCR) (Not Detect) Parainfluenza 1 (PCR) (Not Detect) Parainfluenza 2 (PCR) (Not Detect) Parainfluenza 3 (PCR) (Not Detect) Parainfluenza 4 (PCR) (Not Detect) RSV (PCR) (Not Detect) Entero/Rhino (PCR) (Not Detect) Urine Dip Bedside Urine Glucose Negative Bedside Urine Bilirubin + 1 Bedside Urine Ketone - Negative Urine Specific [place] 1.030 Bedside Urine Occult Blood +/- Bedside Urine pH 6.0 Bedside Urine Protein + 30 Bedside Urine Urobilinogen - Negative Bedside Urine Nitrite - Negative Bedside Urine Leukocytes - Negative Esterase MDM Narrative Medical decision making narrative: CC: 82-year-old male with a few days of weakness and subjective fever Complicating co-morbidities: Age, hypertension, hyperlipidemia Data collected from: Patient Medical records reviewed: Prior notes reviewed in our EMR Differential considered, but not limited to: Urine infection versus pneumonia versus viral upper respiratory infection versus bacteremia versus dehydration versus other Exam documented above, pertinent findings include: Patient is alert and oriented, tacky mucous membranes, heart rate regular, lungs clear without labored respirations, abdomen soft Lab Test results independently reviewed as above. Pertinent findings: No leukocytosis or left shift, no signs of anemia, primary electrolytes reassuring, slight bump in creatinine, lactate normal CK and troponin well under any cutoff, procalcitonin normal Independently reviewed EKG as above Imaging studies independently reviewed: CXR demonstrates atelectasis vs. pneumonia Treatments: saline Re-evaluations: Patient feels significant improvement after fluids, he is not dizzy, does not feel weak, is ambulatory through the department Discussion: Patient has had subjective fever and weakness for the past few days. He denies runny nose, sore throat or cough. He is had no urinary complaints and denies abdominal pain. He has no abnormal lung sounds, complaint of cough or shortness of breath He has no elevated white blood cell count or left shift, lactate and procalcitonin are negative. Respiratory panel is n egative. He feels significant improvement after fluids alone. Chest x-ray demonstrates atelectasis versus pneumonia, and lack of measured fever, elevated white blood cell count, cough, shortness of breath or abnormal lung sounds there is no indication to treat at this time. Patient given reassurance, encouraged to follow closely and return precautions to include chest pain or shortness of breath, ongoing dizziness, persistent vomiting or other concerning symptoms Disposition: see below, along with detailed discharge instructions that have been reviewed with patient as well as indications for ED re-evaluation and additional outpatient follow up Discharge Plan Departure Patient Disposition: Home Clinical Impression: Weakness, Acute dehydration Instructions: DI for Dehydration -- Adult Activity Restrictions/Additional Instructions: *You have been diagnosed with [generalized weakness and mild dehydration. As we discussed the lab work including blood, respiratory swab and urine are reassuring, chest x-ray shows no sign of pneumonia.] *What to do: *Please continue to take your regular medications as directed. *Please follow up with your primary care provider in 2-3 days, call for an appointment. Let them know you were seen in the Emergency Department and that we ask that you be seen in follow up. We will electronically transmit a record of today's note if your PCP is in our system *If you do not have a primary care provider please contact the [facility] Resource line at [phone]. They will ask some questions about your medical history and help get you set up with a doctor in the community. *Return to Emergency Department if you should have any new, worsening or concerning symptoms, such as [fever greater than 101 F, shaking chills, worseni ng pain, persistent vomiting or other bothersome symptoms] Prescriptions: No Action ondansetron 4 mg tablet,disintegrating 4 mg PO Q8H PRN (Reason: nausea and vomiting) Qty: 10 0RF metformin 500 mg Tablet 500 mg PO BID ibuprofen 200 mg Capsule tramadol 50 mg Tablet 50 mg PO BID PRN (Reason: Pain (Scale Score 1-3)) acetaminophen 500 mg Tablet 500 mg PO Q6H PRN (Reason: Pain (Scale Score 1-3)) ferrous sulfate [iron] 325 mg (65 mg iron) Tablet 325 mg PO DAILY levothyroxine 150 mcg Tablet 150 mcg PO DAILY Rx Instructions: Take on tab po sun - sun, take half tab sundays aspirin 81 mg Tablet 81 mg PO DAILY lisinopril 5 mg Tablet 5 mg PO DAILY rosuvastatin 40 mg Tablet 40 mg PO DAILY gabapentin 300 mg Tablet 600 mg PO BEDTIME hydrochlorothiazide 12.5 mg Tablet 12.5 mg PO DAILY Referrals: Vee Chun MD [Primary Care Provider] - Stand Alone Forms: Patient Portal/API
[2022-10-10 19:14] LABS: Ictotest Urine Negative (Negative)
[2022-10-10 19:15] LABS: Granular Casts Urine 10-30/LPF; Hyaline Casts Urine 10-30/LPF
[2022-10-10 19:16] LABS: Amorphous Sediment Urine 1+; Bacteria Urine Few (2-10); Culture Indicated Urine Specimen Cultured; Mucus Urine 2+ (Negative); RBC Urine 5-10/HPF (0-5/HPF); Squamous Epithelial Cell Urine 0-1 /HPF (0-5/HPF); WBC Urine 5-10/HPF (0-5/HPF)
[2022-10-10 19:21] LABS: Add Manual Diff / Slide Review NO; Basophils Absolute Auto 0 /uL (0-100); Basophils Percent Auto 0.2 % (0-2); Eosinophils Absolute Auto 0 /uL (0-450); Eosinophils Percent Auto 0.1 % (2-4); Hematocrit 34.2 % (41-53); Hemoglobin 11.5 g/dL (13.5-17.5); Lymphocytes Absolute Auto 800 /uL (1100-4500); Lymphocytes Percent Auto 8.1 % (25-40); Mean Corpuscular HGB Conc 33.5 % (30-36); Mean Corpuscular Hemoglobin 27.4 PG (26-34); Mean Corpuscular Volume 81.8 fL (80-100); Monocytes Absolute Auto 800 /uL (0-900); Monocytes Percent Auto 7.3 % (3-14); Neutrophils Absolute Auto 8800 /uL (1500-7000); Neutrophils Percent Auto 84.3 % (50-75); Platelet Count 130 X10^3/uL (150-400); Red Blood Cell Count 4.18 X10^6/uL (4.5-5.9); Red Cell Distribution Width 16.5 % (11.6-14.8); White Blood Cell Count 10.4 X10^3/uL (4.5-11.0)
[2022-10-10 19:35] LABS: Alanine Aminotransferase 21 IU/L (<50); Albumin 4.2 g/dL (3.5-5.0); Albumin Globulin Ratio 1.3 (1.0-2.8); Alkaline Phosphatase 56 U/L (38-126); Aspartate Aminotransferase 23 IU/L (17-59); BUN Creatinine Ratio 25.3 (6-22); Bilirubin Total 0.8 mg/dL (0.2-1.3); Blood Urea Nitrogen 38 mg/dL (9-20); Calcium 8.5 mg/dL (8.4-10.2); Carbon Dioxide 28 mmol/L (22-32); Chloride 94 mmol/L (98-107); Creatine Kinase 184 U/L (55-170); Estimated Glomerular Filt Rate 46 mL/min (>60); Globulin 3.3 g/dL (1.7-4.1); Glucose 103 mg/dL (80-110); HEMOLYSIS 23 (0-50); Potassium 4.4 mmol/L (3.4-5.1); Sodium 132 mmol/L (137-145); Total Protein 7.5 g/dL (6.3-8.2)
[2022-10-10 19:36] LABS: Lactate (Lactic Acid) 1.3 mmol/L (0.7-2.1)
[2022-10-10 19:51] LABS: Procalcitonin 0.33 ng/mL (<0.5)
[2022-10-10 20:05] LABS: Adenovirus Not Detected (Not Detect); B. parapertussis Not Detected (Not Detecte); Bordetella pertussis Not Detected (Not Detecte); Chlamydophila pneumoniae Not Detected (Not Detect); Coronavirus 229E Not Detected (Not Detect); Coronavirus HKU1 Not Detected (Not Detect); Coronavirus NL 63 Not Detected (Not Detect); Coronavirus OC43 Not Detected (Not Detect); Human Metapneumovirus Not Detected (Not Detect); Human Rhinovirus/Enterovirus Not Detected (Not Detect); Influenza A Not Detected (Not Detect); Influenza B Not Detected (Not Detect); Mycoplasma pneumoniae Not Detected (Not Detect); Parainfluenza Virus 1 Not Detected (Not Detect); Parainfluenza Virus 2 Not Detected (Not Detect); Parainfluenza Virus 3 Not Detected (Not Detect); Parainfluenza Virus 4 Not Detected (Not Detect); Respiratory Syncytial Virus Not Detected (Not Detect); SARS- CoV-2 Not Detected (Not Detecte)
[2022-10-10] MEDS: SODIUM CHLORIDE 0.9% 1,000 ML 1000 ML IV (20:59)
--- NOTE | 2022-10-10 22:31 | PC.NURSE ---
Patient ambulated in the hallway stand by assist with a walker. Pt and family states they do have a walker at home that patient uses along with his cane. Patient denies having shortness of breathe, dizziness, or feeling lightheaded while ambulating.
== END 2022-10-10 22:14 | disposition home or self-care (01) ==
PROVIDERS: Emergency Provider Emergency Medicine; PCP Internal Medicine
DX: R53.1 Weakness (principal); E86.0 Dehydration
CPT/HCPCS: 36415; 71046; 80053; 81003; 81015; 82550; 83605; 84145; 84484; 85025; 87040; 87086; 87633; 93005; 99284

== ENCOUNTER 2022-10-12 10:16 | Inpatient (IN) | payer MEDICARE, OTHER, SELFPAY ==
[2022-10-12] VITALS (22 sets, daily range): BP systolic 93–141; BP diastolic 53–82; PULSE 82–114; RESP 12–25; TEMP 37–37.2; O2SAT 92–97; BMI 27.8; BMI 27.2
[2022-10-12] MEDS: PANTOPRAZOLE 40 MG VIAL 80 MG IV (10:54)
[2022-10-12 10:58] LABS: Add Manual Diff / Slide Review NO; Basophils Absolute Auto 0 /uL (0-100); Basophils Percent Auto 0.1 % (0-2); Eosinophils Absolute Auto 0 /uL (0-450); Hemoglobin 11.7 g/dL (13.5-17.5); Lymphocytes Absolute Auto 300 /uL (1100-4500); Lymphocytes Percent Auto 3.1 % (25-40); Mean Corpuscular HGB Conc 34.3 % (30-36); Mean Corpuscular Hemoglobin 27.4 PG (26-34); Monocytes Absolute Auto 300 /uL (0-900); Monocytes Percent Auto 3.2 % (3-14); Neutrophils Absolute Auto 9700 /uL (1500-7000); Neutrophils Percent Auto 93.6 % (50-75); Platelet Count 131 X10^3/uL (150-400); Red Blood Cell Count 4.25 X10^6/uL (4.5-5.9); Red Cell Distribution Width 16.6 % (11.6-14.8); White Blood Cell Count 10.4 X10^3/uL (4.5-11.0)
[2022-10-12 11:07] LABS: INR 1.2 (0.9-1.3)
--- NOTE | 2022-10-12 11:08 | ED.GIBLEED ---
HPI - GI Bleed General Chief complaint: GI Bleed Stated complaint: DR vega Time Seen by Provider: 10/12/22 10:54 Source: patient Mode of arrival: Wheelchair Limitations: no limitations History of Present Illness HPI Narrative: This is an 82-year-old nonsmoker with history of atrial dysrhythmia, aortic aneurysm with stent, aortic stenosis, coronary artery disease without cardiac stents, hypertension, dyslipidemia diabetes who re presents with complaint of recent fever at home of 102, 4 days of generalized weakness patient has had no persisting fevers or chills. Denies chest pain, they have noticed some shortness of breath and increase in respiratory rate. Patient has not had much of a cough. Patient denies any nausea or vomiting. states that he did tell her he was nauseated yesterday. Patient denies abdominal pain. He is had regular stools, they are sometimes black but they note that he has been on iron and have associated with this. He is not had any bloody stools. No dysuria, urgency or frequency or incontinence. They have not appreciated new swelling of extremities. He has chronic sciatica and right hip and leg pain that waxes and wanes in intensity. No new changes. Weakness is describing as more generalized and not specific to his leg pain. states he normally ambulates to the bathroom without assistance she is been helping him stand and sit on the commode, helping him put his clothes on get around. Patient was seen here on 10/10/2022 found to have a bump in his creatinine. Patient is on aspirin, medication for hypertension, dyslipidemia, diabetes, hypothyroidism. He is had prior aortic stent for AAA which they monitor regularly. Hip surgery, back surgery. No cardiac stents or other cardiac intervention. No known drug allergies. Related Data Home Medications Medication Instructions Recorded Confirmed acetaminophen 500 mg tablet 500 mg PO Q6H PRN Pain (Scale 08/22/22 10/12/22 Score 1-3) aspirin 81 mg tablet 81 mg PO DAILY 08/22/22 10/12/22 ferrous sulfate 325 mg (65 mg 65 mg PO DAILY 08/22/22 10/12/22 iron) tablet (iron) gabapentin 300 mg tablet 600 mg PO BEDTIME PRN Pain (Scale 08/22/22 10/12/22 Score 1-3) hydrochlorothiazide 12.5 mg tablet 12.5 mg PO DAILY 08/22/22 10/12/22 ibuprofen 200 mg capsule 200 mg PO PRN PRN Cramps 08/22/22 10/12/22 levothyroxine 150 mcg tablet 150 mcg PO DAILY 08/22/22 10/12/22 lisinopril 5 mg tablet 5 mg PO DAILY 08/22/22 10/12/22 metformin 500 mg tablet 500 mg PO BID 08/22/22 10/12/22 rosuvastatin 40 mg tablet 40 mg PO DAILY 08/22/22 10/12/22 tramadol 50 mg tablet 50 mg PO BID PRN Pain (Scale Score 08/22/22 10/12/22 1-3) Allergies Allergy/AdvReac Type Severity Reaction Status Date / Time No Known Drug Allergies Allergy Verified 10/12/22 10:28 Review of Systems Review of Systems ROS Unobtainable: All systems reviewed & are unremarkable except as noted in HPI and below Patient History Medical History (Updated 10/12/22 @ 18:42 by Tavo Carmen DO) Aortic stenosis Ectopic atrial tachycardia Essential hypertension Prediabetes Surgical History History of lumbar fusion Family History Mother No pertinent past medical history Father No pertinent past medical history Social History household members: spouse Smoking Status: Former smoker Tobacco: How many years used: 50 alcohol intake: current substance use type: does not use Smoking Status: Never smoker alcohol intake frequency: 0-2 drinks per day Substance Use Type: does not use Exam Narrative Exam Narrative: GENERAL: Alert and oriented x three, HEENT: Head normocephalic, atraumatic, EOMI, pupils reactive, face symmetric, moist mucous membranes NECK: Supple, full range of motion CARDIOVASCULAR: Regular rate and rhythm with right-sided systolic injection murmurs, rubs or gallops. Mild JVD. No swelling bilateral lower extremities. RESPIRATORY: Breath sounds equal bilaterally, no wheezes rhonchi, patient has some crackles at bases. Mild tachypnea. No accessory muscle use. Patient dips to 88% when O2 is turned off. ABDOMEN: Soft, nontender. Normoactive bowel sounds all 4 quadrants. No guarding or rebound, rigidity, no mass : No CVA tenderness EXTREMITIES: Normal range of motion, no clubbing or edema. Neurovascularly intact NEUROLOGICAL: Cranial nerves II through XII grossly intact. Moving all extremities SKIN: Warm, dry, no petechiae, no rashes or lesions. Initial Vital Signs Initial Vital Signs: Vital Signs Temperature 98.6 F 10/12/22 10:18 Pulse Rate 109 H 10/12/22 10:18 Respiratory Rate 18 10/12/22 10:18 Blood Pressure 114/74 10/12/22 10:18 Pulse Oximetry 93 10/12/22 10:18 Oxygen Delivery Method Room Air 10/12/22 10:18 Course Orders Ordered: ED Orders 10/12/22 10:29 EKG-12 Lead Stat 10/12/22 10:34 Complete Blood Count AUTO DIFF Stat Comprehensive Metabolic Panel Stat PTT Partial Thromboplastin Mario Stat Prothrombin Time INR Stat Type and Screen Stat 10/12/22 10:40 BNP [NT-proBNP (BNP-Adult 18+)] Stat Lactate (Lactic Acid) Stat Procalcitonin Stat Troponin & CK Cardiac Panel Stat 10/12/22 11:09 Chest [XR chest 1V] Stat 10/12/22 13:09 Blood Culture Stat 10/12/22 13:13 CT angio chest PE protocol Stat 10/12/22 13:15 Trop I [Troponin I] Stat Acetaminophen (Acetaminophen 325 Mg Tablet) 975 mg PO Q8H PRN PRN Reason: Pain, Mild (1-3) Atorvastatin Calcium (Atorvastatin 20 Mg Tablet) 40 mg PO BEDTIME BUNNY Enoxaparin Sodium (Enoxaparin 40 Mg/0.4 Ml Syringe) 40 mg SUBCUT DAILY BUNNY Gabapentin (Gabapentin 600 Mg Tablet) 600 mg PO BEDTIME PRN PRN Reason: Pain, Mild (1-3) Ceftriaxone Sodium 1,000 mg/ (Sodium Chloride) 100 mls @ 200 mls/hr IV Q24H [facility] Last Infusion: 10/12/22 18:43 Dose: 0 mls/hr Documented By: Admin: 10/12/22 17:50 Dose: 200 mls/hr Documented By: TOMMIE Azithromycin 500 mg/ Dextrose 250 mls @ 250 mls/hr IV Q24H BUNNY Stop: 10/15/22 18:59 Last Admin: 10/12/22 18:06 Dose: 250 mls/hr Documented By: TOMMIE Levothyroxine Sodium (Levothyroxine 75 Mcg Tablet) 150 mcg PO 0600 [facility] Naloxone HCl (Naloxone 0.4 Mg/Ml Vial) 0.2 mg IV Q2MIN PRN PRN Reason: Opiate Reversal Ondansetron HCl (Ondansetron 4 Mg/2 Ml Inj) 4 mg IV Q8HR PRN PRN Reason: Nausea And Vomiting Tramadol HCl (Tramadol 50 Mg Tablet) 50 mg PO BID PRN PRN Reason: Pain (Scale Score 1-3) Discontinued Medications Piperacillin Sod/Tazobactam (Sod 4.5 gm/ Sodium Chloride) 100 mls @ 200 mls/hr IV NOW ONE Stop: 10/12/22 12:13 Last Infusion: 10/12/22 14:35 Dose: 0 mls/hr Documented By: Admin: 10/12/22 13:32 Dose: 200 mls/hr Documented By: NORY Sodium Chloride (Normal Saline 0.9%) 1,000 mls @ 1,000 mls/hr IV BOLUS ONE Stop: 10/12/22 13:19 Last Infusion: 10/12/22 15:24 Dose: 0 mls/hr Documented By: SONAL(2) Infusion: 10/12/22 13:20 Dose: 0 mls/hr Documented By: Admin: 10/12/22 12:48 Dose: 1,000 mls/hr Documented By: ANILA Sodium Chloride (Normal Saline 0.9%) 1,000 mls @ 100 mls/hr IV CONT BUNNY Last Admin: 10/12/22 15:47 Dose: 100 mls/hr Documented By: TOMMIE Ondansetron HCl (Ondansetron 4 Mg/2 Ml Inj) 4 mg IV NOW PRN PRN Reason: Nausea And Vomiting Ondansetron HCl (Ondansetron 4 Mg Odt) 4 mg SL NOW PRN PRN Reason: Nausea And Vomiting Pantoprazole Sodium (Pantoprazole 40 Mg Vial) 80 mg IV NOW ONE Stop: 10/12/22 10:28 Last Admin: 10/12/22 10:54 Dose: 80 mg Documented By: SONAL Vital Signs Vital signs: Vital Signs - 8 hr 10/12/22 11:00 10/12/22 11:00 10/12/22 11:15 Pulse Rate 102 H Respiratory Rate 21 Blood Pressure 97/57 L 93/53 L Pulse Oximetry 93 Oxygen Delivery Method Nasal Cannula Oxygen Flow Rate 2 10/12/22 11:15 10/12/22 11:30 10/12/22 11:31 Pulse Rate 100 H 105 H Respiratory Rate 22 25 H Blood Pressure 103/63 Pulse Oximetry 95 93 Oxygen Delivery Method Nasal Cannula Oxygen Flow Rate 2 10/12/22 11:31 10/12/22 12:00 10/12/22 12:30 Pulse Rate 101 H 104 H 101 H Respiratory Rate 22 22 20 Blood Pressure Pulse Oximetry 93 93 93 Oxygen Delivery Method Nasal Cannula Oxygen Flow Rate 2 10/12/22 12:52 10/12/22 12:52 10/12/22 13:00 Pulse Rate 104 H Respiratory Rate 20 Blood Pressure 103/65 107/60 Pulse Oximetry 94 Oxygen Delivery Method Oxygen Flow Rate 10/12/22 13:00 10/12/22 13:15 10/12/22 13:15 Pulse Rate 95 H 98 H Respiratory Rate 19 18 Blood Pressure 115/66 Pulse Oximetry 93 96 Oxygen Delivery Method Oxygen Flow Rate 10/12/22 13:33 10/12/22 14:00 10/12/22 14:30 Pulse Rate 98 H 94 H 102 H Respiratory Rate 20 13 Blood Pressure Pulse Oximetry 96 94 96 Oxygen Delivery Method Room Air Oxygen Flow Rate MDM - GI Bleed Lab Data 10/12/22 10:34 10/12/22 10:34 Labs: Lab Results 10/12/22 10/12/22 10/12/22 Range/Units 10:34 10:34 10:34 WBC 10.4 (4.5-11.0) X10^3/uL RBC 4.25 L (4.5-5.9) X10^6/uL Hgb 11.7 L (13.5-17.5) g/dL Hct 34.0 L (41-53) % MCV 80.0 (80-100) fL MCH 27.4 (26-34) PG MCHC 34.3 (30-36) % RDW 16.6 H (11.6-14.8) % Plt Count 131 L (150-400) X10^3/uL Neut % (Auto) 93.6 H (50-75) % Lymph % (Auto) 3.1 L (25-40) % [place] % (Auto) 3.2 (3-14) % Eos % (Auto) 0.0 L (2-4) % Baso % (Auto) 0.1 (0-2) % Neut # (Auto) 9700 H (5320-0101) /uL Lymph # (Auto) 300 L (3791-0027) /uL [place] # (Auto) 300 (0-900) /uL Eos # (Auto) 0 (0-450) /uL Baso # (Auto) 0 (0-100) /uL PT 14.0 H (10.1-12.7) SECONDS INR 1.2 (0.9-1.3) APTT 28 (26-36) SECONDS Sodium 130 L (137-145) mmol/L Potassium 3.5 (3.4-5.1) mmol/L Chloride 95 L (98-107) mmol/L Carbon Dioxide 24 (22-32) mmol/L BUN 35 H (9-20) mg/dL Creatinine 1.44 H (0.66-1.25) mg/dL Estimated GFR 48 L (>60) mL/min BUN/Creatinine Ratio 24.3 H (6-22) Glucose 131 H (80-110) mg/dL Lactate (0.7-2.1) mmol/L Calcium 8.7 (8.4-10.2) mg/dL Total Bilirubin 1.0 (0.2-1.3) mg/dL AST 52 (17-59) IU/L ALT 30 (<50) IU/L Alkaline Phosphatase 61 (38-126) U/L Total Creatine Kinase (55-170) U/L CK-MB (CK-2) CK-MB (CK-2) Rel Index Troponin I (0.01-0.034) ng/mL NT-Pro-B Natriuret Pep (<450) pg/mL Total Protein 7.3 (6.3-8.2) g/dL Albumin 3.8 (3.5-5.0) g/dL Globulin 3.5 (1.7-4.1) g/dL Albumin/Globulin Ratio 1.1 (1.0-2.8) Procalcitonin (<0.5) ng/mL Urine Color Urine Appearance Urine pH (4.5-8.0) Ur Specific [place] (1.000-1.035) Urine Protein (Negative) Urine Glucose (UA) (Negative) g/dL Urine Ketones (NEGATIVE) Urine Occult Blood (Negative) Urine Nitrate (Negative) Urine Bilirubin (NEGATIVE) Urine Urobilinogen (0.2) E.U./dL Ur Leukocyte Esterase (NEGATIVE) Urine RBC (0-5/HPF) Urine WBC (0-5/HPF) Amorphous Sediment Urine Bacteria (None) Urine Mucus (Negative) Ur Culture Indicated? Blood Type Antibody Screen 10/12/22 10/12/22 10/12/22 Range/Units 10:34 10:40 10:40 WBC (4.5-11.0) X10^3/uL RBC (4.5-5.9) X10^6/uL Hgb (13.5-17.5) g/dL Hct (41-53) % MCV (80-100) fL MCH (26-34) PG MCHC (30-36) % RDW (11.6-14.8) % Plt Count (150-400) X10^3/uL Neut % (Auto) (50-75) % Lymph % (Auto) (25-40) % [place] % (Auto) (3-14) % Eos % (Auto) (2-4) % Baso % (Auto) (0-2) % Neut # (Auto) (7327-6737) /uL Lymph # (Auto) (7268-1026) /uL [place] # (Auto) (0-900) /uL Eos # (Auto) (0-450) /uL Baso # (Auto) (0-100) /uL PT (10.1-12.7) SECONDS INR (0.9-1.3) APTT (26-36) SECONDS Sodium (137-145) mmol/L Potassium (3.4-5.1) mmol/L Chloride (98-107) mmol/L Carbon Dioxide (22-32) mmol/L BUN (9-20) mg/dL Creatinine (0.66-1.25) mg/dL Estimated GFR (>60) mL/min BUN/Creatinine Ratio (6-22) Glucose (80-110) mg/dL Lactate 2.0 (0.7-2.1) mmol/L Calcium (8.4-10.2) mg/dL Total Bilirubin (0.2-1.3) mg/dL AST (17-59) IU/L ALT (<50) IU/L Alkaline Phosphatase (38-126) U/L Total Creatine Kinase 818 H D (55-170) U/L CK-MB (CK-2) TNP CK-MB (CK-2) Rel Index TNP Troponin I 0.165 H* (0.01-0.034) ng/mL NT-Pro-B Natriuret Pep 6440 H (<450) pg/mL Total Protein (6.3-8.2) g/dL Albumin (3.5-5.0) g/dL Globulin (1.7-4.1) g/dL Albumin/Globulin Ratio (1.0-2.8) Procalcitonin 1.25 H (<0.5) ng/mL Urine Color Urine Appearance Urine pH (4.5-8.0) Ur Specific [place] (1.000-1.035) Urine Protein (Negative) Urine Glucose (UA) (Negative) g/dL Urine Ketones (NEGATIVE) Urine Occult Blood (Negative) Urine Nitrate (Negative) Urine Bilirubin (NEGATIVE) Urine Urobilinogen (0.2) E.U./dL Ur Leukocyte Esterase (NEGATIVE) Urine RBC (0-5/HPF) Urine WBC (0-5/HPF) Amorphous Sediment Urine Bacteria (None) Urine Mucus (Negative) Ur Culture Indicated? Blood Type O Positive Antibody Screen Negative 10/12/22 10/12/22 Range/Units 13:15 14:25 WBC (4.5-11.0) X10^3/uL RBC (4.5-5.9) X10^6/uL Hgb (13.5-17.5) g/dL Hct (41-53) % MCV (80-100) fL MCH (26-34) PG MCHC (30-36) % RDW (11.6-14.8) % Plt Count (150-400) X10^3/uL Neut % (Auto) (50-75) % Lymph % (Auto) (25-40) % [place] % (Auto) (3-14) % Eos % (Auto) (2-4) % Baso % (Auto) (0-2) % Neut # (Auto) (1213-4625) /uL Lymph # (Auto) (5820-4700) /uL [place] # (Auto) (0-900) /uL Eos # (Auto) (0-450) /uL Baso # (Auto) (0-100) /uL PT (10.1-12.7) SECONDS INR (0.9-1.3) APTT (26-36) SECONDS Sodium (137-145) mmol/L Potassium (3.4-5.1) mmol/L Chloride (98-107) mmol/L Carbon Dioxide (22-32) mmol/L BUN (9-20) mg/dL Creatinine (0.66-1.25) mg/dL Estimated GFR (>60) mL/min BUN/Creatinine Ratio (6-22) Glucose (80-110) mg/dL Lactate (0.7-2.1) mmol/L Calcium (8.4-10.2) mg/dL Total Bilirubin (0.2-1.3) mg/dL AST (17-59) IU/L ALT (<50) IU/L Alkaline Phosphatase (38-126) U/L Total Creatine Kinase (55-170) U/L CK-MB (CK-2) CK-MB (CK-2) Rel Index Troponin I 0.151 H* (0.01-0.034) ng/mL NT-Pro-B Natriuret Pep (<450) pg/mL Total Protein (6.3-8.2) g/dL Albumin (3.5-5.0) g/dL Globulin (1.7-4.1) g/dL Albumin/Globulin Ratio (1.0-2.8) Procalcitonin (<0.5) ng/mL Urine Color Yellow Urine Appearance Clear Urine pH 5.0 (4.5-8.0) Ur Specific [place] 1.010 (1.000-1.035) Urine Protein 1+ H (Negative) Urine Glucose (UA) Negative (Negative) g/dL Urine Ketones Negative (NEGATIVE) Urine Occult Blood 1+ H (Negative) Urine Nitrate Negative (Negative) Urine Bilirubin Negative (NEGATIVE) Urine Urobilinogen 0.2 (0.2) E.U./dL Ur Leukocyte Esterase Negative (NEGATIVE) Urine RBC 0-1/hpf (0-5/HPF) Urine WBC None seen (0-5/HPF) Amorphous Sediment 2+ Urine Bacteria None seen (None) Urine Mucus 1+ H (Negative) Ur Culture Indicated? Cult not indicated Blood Type Antibody Screen Urine Dip Bedside Urine Glucose Negative Bedside Urine Bilirubin - Negative Bedside Urine Ketone - Negative Urine Specific [place] 1.010 Bedside Urine Occult Blood ++ Bedside Urine pH 6.0 Bedside Urine Protein + 30 Bedside Urine Urobilinogen - Negative Bedside Urine Nitrite - Negative Bedside Urine Leukocytes - Negative Esterase Imaging Data Chest x-ray: Radiologist's Impression: [address] [id number] XRay Report Signed Patient: Alonso Hackett MR#: [id number] : 1940 Acct:[id number] Age/Sex: 82 / M Date of Service: 10/12/22 Loc: ED Accession Number: [id number] ?? Procedure: XR chest 1V Ordering Provider: Rhoda Bansal D.O. PROCEDURE:? XR CHEST 1V ? INDICATIONS:? weakness, dehydration, sob, afib rvr, ? pna ? TECHNIQUE:? One view of the chest was acquired.? ? COMPARISON:? [facility], CR, XR CHEST 2V, 10/10/2022, 19:05.? [facility], CR, XR CHEST 1V, 12/26/2021, 15:13. ? FINDINGS:? ? Surgical changes and devices:? None.? ? Lungs and pleura:? Patchy left basilar airspace opacity. ? Mediastinum:? Mediastinal contours appear normal.? Heart size is normal.? ? Bones and chest wall:? No suspicious bony lesions.? Overlying soft tissues appear unremarkable.? ? IMPRESSION:? Patchy left basilar airspace opacity, concerning for infection or atelectasis. ? ? Dictated by: Júnior Soto M.D. on 10/12/2022 at 11:42 ? ? Approved by: Júnior Soto M.D. on 10/12/2022 at 11:42?? ECG Data Attestation: I personally reviewed and interpreted this ECG as follows: Prior ECG tracings: available for review Interpretation: AFib with RVR, rate of 122 QRS of 100, QTC 444. No acute ST elevation. Patient has some nonspecific ST depression or J-point and V3 through V6. No elevation noted. Patient has prior from 10/10/2022 which appears similar. MDM Narrative Medical decision making narrative: This is an 82-year-old male who comes in with complaint of fevers in the past week, progressive weakness, patient notes he has right lower extremity been leg pain that is longstanding. Patient has had some increased tachypnea shortness of breath. No cough. He had some nausea yesterday. He denies any chest pain or pressure. Patient has known cardiac history with coronary artery disease without stents, aortic stenosis with no valvular repair, AAA with stent placement. Patient has atrial ectopic rhythm he is on an 81 mg aspirin takes medication for hypertension, diabetes, dyslipidemia. On examination suspect either CHF and/or pneumonia or combination. Patient's blood pressure was in the 103 range he arrived AFib RVR quite tachycardic in the 120s he has been more 90 to 100s. Appears his pressures typically 120s to 130s notes it has been a little lower last few days and he has been requiring O2 2 L to maintain in the 90%. Patient was given a L bolus but not 30 cc/kilos as I suspicion for sepsis with tachycardia, he has a positive procalcitonin, negative lactate. Patient's sodium is 130 down from yesterday, creatinine is 1.44 at his normal baseline glucose is 131. LFTs are negative total CK is 818 with a BNP of 644 and a trope of 0.165. Unclear if this is demand ischemia he does not have any chest pain or pressure, he does not have any new ST changes. UA from yesterday shows 5-10 RBCs and WBCs, few bacteria postman was cultured and showed mixed g jennifer suitable for further studies. Attempting to obtain a 2nd sample. Spoke with hospitalist, Dr. Carmen: Plan for repeat dimer to trend out and CT angio. These were obtained. Patient has trending down words troponin still no chest pain or pressure. Blood pressure improved with 500 bolus we will continue to give bolus as needed but with goal of not fluid overloading the patient. He is not had increasing O2 requirements in the department. CT angio shows no pulmonary emboli, signs more consistent with pneumonia, some reactive lymph nodes and hypoattenuating thyroid. Patient had been covered initially with Zosyn. Re-contacted Dr. Carmen, who accepts for admission. Discharge Plan Departure Patient Disposition: Admitted As Inpatient Clinical Impression: Pneumonia, Atrial fibrillation with rapid ventricular response, Sepsis Admit Date/Time: 10/12/22 14:32 Admit Provider: Tavo Carmen
[2022-10-12 11:09] LABS: PTT Partial Thromboplastin Tim 28 SECONDS (26-36)
--- NOTE | 2022-10-12 11:09 | DI.RAD.S_ITS ---
PROCEDURE: XR CHEST 1V INDICATIONS: weakness, dehydration, sob, afib rvr, ? pna TECHNIQUE: One view of the chest was acquired. COMPARISON: [facility], CR, XR CHEST 2V, 10/10/2022, 19:05. [facility], CR, XR CHEST 1V, 12/26/2021, 15:13. FINDINGS: Surgical changes and devices: None. Lungs and pleura: Patchy left basilar airspace opacity. Mediastinum: Mediastinal contours appear normal. Heart size is normal. Bones and chest wall: No suspicious bony lesions. Overlying soft tissues appear unremarkable. IMPRESSION: Patchy left basilar airspace opacity, concerning for infection or atelectasis. Dictated by: Júnior Soto M.D. on 10/12/2022 at 11:42 Approved by: Júnior Soto M.D. on 10/12/2022 at 11:42
[2022-10-12 11:11] LABS: Alanine Aminotransferase 30 IU/L (<50); Albumin 3.8 g/dL (3.5-5.0); Albumin Globulin Ratio 1.1 (1.0-2.8); Alkaline Phosphatase 61 U/L (38-126); Aspartate Aminotransferase 52 IU/L (17-59); BUN Creatinine Ratio 24.3 (6-22); Blood Urea Nitrogen 35 mg/dL (9-20); Calcium 8.7 mg/dL (8.4-10.2); Carbon Dioxide 24 mmol/L (22-32); Chloride 95 mmol/L (98-107); Estimated Glomerular Filt Rate 48 mL/min (>60); Globulin 3.5 g/dL (1.7-4.1); Glucose 131 mg/dL (80-110); HEMOLYSIS < 15 (0-50); Potassium 3.5 mmol/L (3.4-5.1); Sodium 130 mmol/L (137-145); Total Protein 7.3 g/dL (6.3-8.2)
[2022-10-12 11:24] LABS: Creatine Kinase 818 U/L (55-170)
[2022-10-12 11:36] LABS: NT-proBNP (BNP-Adult 18+) 6440 pg/mL (<450)
[2022-10-12 11:42] LABS: Procalcitonin 1.25 ng/mL (<0.5)
[2022-10-12] MEDS: SODIUM CHLORIDE 0.9% 1,000 ML 1000 ML IV (12:48)
[2022-10-12 13:05] LABS: Troponin I 0.165 ng/mL (0.01-0.034)
--- NOTE | 2022-10-12 13:13 | DI.CT.S_ITS ---
PROCEDURE: CT ANGIO CHEST PE PROTOCOL INDICATIONS: shortness of breath, fevers, + trop TECHNIQUE: After the administration of intravenous contrast, 2 mm thick sections acquired from the pulmonary apices to the posterior costophrenic angles. 3-dimensional maximum intensity projection (MIP) coronal and sagittal reformats were then acquired through the thorax. For radiation dose reduction, the following was used: automated exposure control, adjustment of mA and/or kV according to patient size. COMPARISON: None. FINDINGS: Image quality: Excellent. Pulmonary arteries: Pulmonary arteries are normal in size, and demonstrate no intraluminal filling defects to suggest central pulmonary embolism. Lungs and pleura: There is left basilar consolidation. Confluent centrilobular emphysema. Small left pleural effusion. Mediastinum: Heart size is enlarged, without pericardial effusion. Enlarged mediastinal and hilar lymph nodes, predominantly on the left. Thoracic aorta is normal in caliber and enhancement. Esophagus is normal in caliber, without hiatal hernia. Bones and chest wall: No suspicious bony lesions. Ribs and thoracic spine appear intact throughout. Thyroid gland is hypoattenuating. No axillary or supraclavicular adenopathy. Abdomen: Visualized upper abdominal solid organs appear normal in the early arterial phase of enhancement. IMPRESSION: No pulmonary embolus. Left basilar consolidation, concerning for infection. Recommend follow-up in 1-2 months with chest x-ray to ensure resolution, given underlying smoking changes. Enlarged mediastinal lymph nodes, probably reactive. Hypoattenuating thyroid, which may indicate underlying thyroiditis. Dictated by: Júnior Soto M.D. on 10/12/2022 at 13:44 Approved by: Júnior Soto M.D. on 10/12/2022 at 13:47
[2022-10-12] MEDS: PIPERACILLIN/TAZO 4.5 GM in SODIUM CHLORIDE 0.9% 100 ML IV (13:32)
[2022-10-12 13:47] LABS: Troponin I 0.151 ng/mL (0.01-0.034)
[2022-10-12 15:05] LABS: Appearance Urine UA CLEAR; Bilirubin Urine UA NEGATIVE (NEGATIVE); Color Urine UA YELLOW; Glucose Urine UA NEGATIVE (Negative); Ketones Urine UA NEGATIVE (NEGATIVE); Leukocyte Esterase Urine UA NEGATIVE (NEGATIVE); Nitrite Urine UA NEGATIVE (Negative); Occult Blood Urine UA 1+ (Negative); Protein Urine UA 1+ (Negative); Urobilinogen Urine UA 0.2 E.U./dL (0.2)
[2022-10-12 15:13] LABS: Amorphous Sediment Urine 2+; Bacteria Urine None Seen; Culture Indicated Urine Cult Not Indicated; Mucus Urine 1+ (Negative); RBC Urine 0-1/HPF (0-5/HPF); WBC Urine None Seen (0-5/HPF)
[2022-10-12] MEDS: SODIUM CHLORIDE 0.9% 1,000 ML 100 ML IV (15:47)
--- NOTE | 2022-10-12 16:51 | P.HP_ITS ---
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 Patient defers much of his history to his spouse at bedside, as he feels a bit slow and groggy. states he has been weak for the past 5 days, complaining of lethargy, decreased appetite and mild shortness of breath. He denies recent rhinorrhea, nasal congestion, sick contacts, he denies cough or any sputum production. He has had no chest pain, abdominal pain, dysuria, or urinary frequency. relates that he has remained sharp mentally, but much slower and slightly more forgetful than normal. She states he has had no memory issues in the past. He typically ambulates with a cane due to his chronic back pain and sciatica, but the last 5 days he has needed a lot of help and has needed to use a walker instead. He has had recent black stools but has also been on iron supplementation. In the emergency room, he reportedly desaturated on room air to the upper 80s, was placed on 2L via NC. The remainder of his vital signs were unremarkable. Labs were notable for a stable anemia with Hg 11.7, Plt 131, sodium of 130, creatinine of 1.44 (1.5 2 days ago, 1.0 at baseline), troponin 0.165 improved to .151 on repeat. ProBNP 6440. Procalcitonin was 1.25, CK mildly elevated at 818. CTA was performed, no PE found but did show a L Basilar consolidation consistent with pneumonia. He was admitted for further management. [facility] Medical History (Updated 10/12/22 @ 18:42 by Tavo Carmen DO) Aortic stenosis Ectopic atrial tachycardia Essential hypertension Prediabetes Surgical History History of lumbar fusion Family History Mother No pertinent past medical history Father No pertinent past medical history Social History household members: spouse Smoking Status: Former smoker Tobacco: How many years used: 50 alcohol intake: current substance use type: does not use Meds Home Medications and Allergies Home Medications Medication Instructions Recorded Confirmed Type acetaminophen 500 mg tablet 500 mg PO Q6H PRN Pain (Scale 08/22/22 10/12/22 History Score 1-3) aspirin 81 mg tablet 81 mg PO DAILY 08/22/22 10/12/22 History ferrous sulfate 325 mg (65 mg 65 mg PO DAILY 08/22/22 10/12/22 History iron) tablet (iron) gabapentin 300 mg tablet 600 mg PO BEDTIME PRN Pain (Scale 08/22/22 10/12/22 History Score 1-3) hydrochlorothiazide 12.5 mg tablet 12.5 mg PO DAILY 08/22/22 10/12/22 History ibuprofen 200 mg capsule 200 mg PO PRN PRN Cramps 08/22/22 10/12/22 History levothyroxine 150 mcg tablet 150 mcg PO DAILY 08/22/22 10/12/22 History lisinopril 5 mg tablet 5 mg PO DAILY 08/22/22 10/12/22 History metformin 500 mg tablet 500 mg PO BID 08/22/22 10/12/22 History rosuvastatin 40 mg tablet 40 mg PO DAILY 08/22/22 10/12/22 History tramadol 50 mg tablet 50 mg PO BID PRN Pain (Scale Score 08/22/22 10/12/22 History 1-3) Allergies Allergy/AdvReac Type Severity Reaction Status Date / Time No Known Drug Allergies Allergy Verified 10/12/22 10:28 Review of Systems Review of Systems Narrative: All other systems reviewed with the patient and are negative unless otherwise stated. Exam Vital Signs (past 8 hours): - 10/12/22 10:18 10/12/22 10:26 10/12/22 10:30 Temperature 98.6 F Pulse Rate 109 H 112 H Respiratory Rate 18 Blood Pressure 114/74 109/74 Pulse Oximetry 93 93 Oxygen Delivery Method Room Air Nasal Cannula Oxygen Flow Rate 2 10/12/22 10:30 10/12/22 10:58 10/12/22 10:58 Temperature Pulse Rate 114 H 111 H Respiratory Rate 12 Blood Pressure 99/57 L Pulse Oximetry 92 93 Oxygen Delivery Method Nasal Cannula Oxygen Flow Rate 2 10/12/22 11:00 10/12/22 11:00 10/12/22 11:15 Temperature Pulse Rate 102 H Respiratory Rate 21 Blood Pressure 97/57 L 93/53 L Pulse Oximetry 93 Oxygen Delivery Method Nasal Cannula Oxygen Flow Rate 2 10/12/22 11:15 10/12/22 11:30 10/12/22 11:31 Temperature Pulse Rate 100 H 105 H Respiratory Rate 22 25 H Blood Pressure 103/63 Pulse Oximetry 95 93 Oxygen Delivery Method Nasal Cannula Oxygen Flow Rate 2 10/12/22 11:31 10/12/22 12:00 10/12/22 12:30 Temperature Pulse Rate 101 H 104 H 101 H Respiratory Rate 22 22 20 Blood Pressure Pulse Oximetry 93 93 93 Oxygen Delivery Method Nasal Cannula Oxygen Flow Rate 2 10/12/22 12:52 10/12/22 12:52 10/12/22 13:00 Temperature Pulse Rate 104 H Respiratory Rate 20 Blood Pressure 103/65 107/60 Pulse Oximetry 94 Oxygen Delivery Method Oxygen Flow Rate 10/12/22 13:00 10/12/22 13:15 10/12/22 13:15 Temperature Pulse Rate 95 H 98 H Respiratory Rate 19 18 Blood Pressure 115/66 Pulse Oximetry 93 96 Oxygen Delivery Method Oxygen Flow Rate 10/12/22 13:33 10/12/22 14:00 10/12/22 14:30 Temperature Pulse Rate 98 H 94 H 102 H Respiratory Rate 20 13 Blood Pressure Pulse Oximetry 96 94 96 Oxygen Delivery Method Room Air Oxygen Flow Rate 10/12/22 15:45 10/12/22 15:57 Temperature 98.7 F Pulse Rate 88 Respiratory Rate 16 Blood Pressure 110/69 Pulse Oximetry 97 97 Oxygen Delivery Method Nasal Cannula Oxygen Flow Rate 2 2 Oxygen Delivery Method Nasal Cannula Oxygen Flow Rate 2 Narrative Exam Narrative: General:? Patient is well developed and well nourished, in no distress at this time, lethargic HEENT:? Normocephalic, atraumatic, extraocular muscles intact, oral pharynx is clear and mucous membranes are moist. Neck: supple and symmetric, trachea is midline, no cervical adenopathy. Negative for JVD Chest:? Normal AP diameter and contour without kyphoscoliosis, no tachypnea, equal chest rise bilaterally. Lungs:? LLL rales, no wheezing, Right lung CTA Cardio:?RRR with 2-3/6 systolic murmur Abdomen: S NT ND. No CVA tenderness. Musculoskeletal:? Muscle strength and tone are equal within normal limits, no deformity. Extremities: No edema or joint effusions. No cyanosis or clubbing. Skin:? Pale,? Warm to touch,dry and intact without rashes, ulcerations or petechiae.? Neuro:? Alert and orientated x3,?mild confusion and lethargy, sensation to touch intact in all extremities, no gross deficits noted of cranial nerves. Psych:? Patient has a well-kept appearance, appropriate affect, mental status attitude thought context and judgment are appropriate for age. Objective ECG Impression: afib with RVR, rate 122, no obvious ST or T wave abnormalities. Labs 10/12/22 10:34 10/12/22 10:34 Labs: Laboratory Results - last 24 hr 10/12/22 10/12/22 10/12/22 10:34 10:34 10:34 WBC 10.4 RBC 4.25 L Hgb 11.7 L Hct 34.0 L MCV 80.0 MCH 27.4 MCHC 34.3 RDW 16.6 H Plt Count 131 L Neut % (Auto) 93.6 H Lymph % (Auto) 3.1 L Phillips % (Auto) 3.2 Eos % (Auto) 0.0 L Baso % (Auto) 0.1 Neut # (Auto) 9700 H Lymph # (Auto) 300 L Phillips # (Auto) 300 Eos # (Auto) 0 Baso # (Auto) 0 PT 14.0 H INR 1.2 APTT 28 Sodium 130 L Potassium 3.5 Chloride 95 L Carbon Dioxide 24 BUN 35 H Creatinine 1.44 H Estimated GFR 48 L BUN/Creatinine Ratio 24.3 H Glucose 131 H Lactate Calcium 8.7 Total Bilirubin 1.0 AST 52 ALT 30 Alkaline Phosphatase 61 Total Creatine Kinase CK-MB (CK-2) CK-MB (CK-2) Rel Index Troponin I NT-Pro-B Natriuret Pep Total Protein 7.3 Albumin 3.8 Globulin 3.5 Albumin/Globulin Ratio 1.1 Procalcitonin Urine Color Urine Appearance Urine pH Ur Specific [place] Urine Protein Urine Glucose (UA) Urine Ketones Urine Occult Blood Urine Nitrate Urine Bilirubin Urine Urobilinogen Ur Leukocyte Esterase Urine RBC Urine WBC Amorphous Sediment Urine Bacteria Urine Mucus Ur Culture Indicated? Blood Type Antibody Screen 10/12/22 10/12/22 10/12/22 10:34 10:40 10:40 WBC RBC Hgb Hct MCV MCH MCHC RDW Plt Count Neut % (Auto) Lymph % (Auto) Phillips % (Auto) Eos % (Auto) Baso % (Auto) Neut # (Auto) Lymph # (Auto) Phillips # (Auto) Eos # (Auto) Baso # (Auto) PT INR APTT Sodium Potassium Chloride Carbon Dioxide BUN Creatinine Estimated GFR BUN/Creatinine Ratio Glucose Lactate 2.0 Calcium Total Bilirubin AST ALT Alkaline Phosphatase Total Creatine Kinase 818 H D CK-MB (CK-2) TNP CK-MB (CK-2) Rel Index TNP Troponin I 0.165 H* NT-Pro-B Natriuret Pep 6440 H Total Protein Albumin Globulin Albumin/Globulin Ratio Procalcitonin 1.25 H Urine Color Urine Appearance Urine pH Ur Specific [place] Urine Protein Urine Glucose (UA) Urine Ketones Urine Occult Blood Urine Nitrate Urine Bilirubin Urine Urobilinogen Ur Leukocyte Esterase Urine RBC Urine WBC Amorphous Sediment Urine Bacteria Urine Mucus Ur Culture Indicated? Blood Type O Positive Antibody Screen Negative 10/12/22 10/12/22 13:15 14:25 WBC RBC Hgb Hct MCV MCH MCHC RDW Plt Count Neut % (Auto) Lymph % (Auto) Phillips % (Auto) Eos % (Auto) Baso % (Auto) Neut # (Auto) Lymph # (Auto) Phillips # (Auto) Eos # (Auto) Baso # (Auto) PT INR APTT Sodium Potassium Chloride Carbon Dioxide BUN Creatinine Estimated GFR BUN/Creatinine Ratio Glucose Lactate Calcium Total Bilirubin AST ALT Alkaline Phosphatase Total Creatine Kinase CK-MB (CK-2) CK-MB (CK-2) Rel Index Troponin I 0.151 H* NT-Pro-B Natriuret Pep Total Protein Albumin Globulin Albumin/Globulin Ratio Procalcitonin Urine Color Yellow Urine Appearance Clear Urine pH 5.0 Ur Specific [place] 1.010 Urine Protein 1+ H Urine Glucose (UA) Negative Urine Ketones Negative Urine Occult Blood 1+ H Urine Nitrate Negative Urine Bilirubin Negative Urine Urobilinogen 0.2 Ur Leukocyte Esterase Negative Urine RBC 0-1/hpf Urine WBC None seen Amorphous Sediment 2+ Urine Bacteria None seen Urine Mucus 1+ H Ur Culture Indicated? Cult not indicated Blood Type Antibody Screen Assessment & Plan Assessment & Plan narrative: 1. Sepsis secondary to bacterial pnuemonia, with acute metabolic encephalopathy, EVITA, thrombocytopenia, and acute respiratory failure with hypoxia. - no WBC elevation, but elevated procal and infiltrate seen on CXR and CT angio . - CTA negative for PE. Hypoxia has improved at arrival to the floor with initial interventions. - given zosyn in the ER, and IV fluids. will hold additional fluid given aortic valve history, elevated proBNP though suspect slightly hypovolemic but patient is able to eat and drink. Change antibiotics to ceftriaxone and azithromycin for presumed bacterial pneumonia. Will follow up on available cultures. - baseline creatinine 1, elevated at 1.5 2 days ago, slight improvement to 1.44 on admit today. Plt 131 will continue to follow, likely in setting of sepsis - SOFA score of at least 3 as noted below. 2. HTN - hold home medications in setting of sepsis. 3. paroxysmal atrial fibrillation with RVR, RVR resolved, possible new diagnosis - patient's spouse report history of an ectopic tachycardia. EKG does appear to be afib with no obvious P-waves. Will continue tele monitoring for now. - will discuss anticoagulation, consider TTE depending on patient's symptoms, suspect chronically elevated proBNP in setting of aortic stenosis but if weakness continues or has worsening respiratory status will check TTE. 4. Myocardial injury - suspect in setting of above sepsis. No obvious ischemia on EKG and no chest pain. Troponin already trended down. 5. Aortic stenosis - consider TTE depending on response to antibiotics as sepsis more likely etiology for his symptoms but cannot rule out valvular or mild heart failure. 6. Mild rhabdomyolysis. present on admission - as above will hold on additional fluids, repeat CK tomorrow AM 7. Hyponatremia, present on admission 8. Anemia of chronic disease - has been chronic, patient's stools likely dark due to iron supplementation. H as been seeing hematology as an outpatient and lab values similar today. Will continue to follow and watch for evidence of bleeding. 9. chronic pain - continue home gabapentin nightly prn, tramadol prn. 10 Prediabetes - will check A1c, carb consistent diet ordered, if sugars are high on BMP in AM will start checking ACHS and initiate sliding scale, Code: Full, surrogate is patient's spouse DVT: Lovenox daily Dispo: Admit inpatient, anticipated stay 2-3 days. Elevated PSI score. I have utilized all available immediate resources to obtain, update, or review the patient's current medications. I have obtained additional history from ER provider and patient's spouse. Have reviewed patient's EKGs, imaging including CXR and CT angio, and reviewed recent documentation. Have personally reviewed his labs and are interpreted above. Scores SOFA PaO2/FIO2: >=400 mmHg Platelets: < 150 Bilirubin: < 1.2 mg/dL Hypotension: MAP >= 70 mmHg [place] Coma Scale: 13-14 Renal: Creatinine 1.2-1.9 mg/dL SOFA Score: 3 Quality VTE Deep Vein Thrombosis/Pulmonary Embolism Present on Admission: No
[2022-10-12] MEDS: cefTRIAXone 1,000 MG in SODIUM CHLORIDE 0.9% 100 ML 200 MG IV (17:50)
[2022-10-12] MEDS: AZITHROMYCIN 500 MG in DEXTROSE 5% IN WATER 250 ML 250 MG IV (18:06)
[2022-10-12] MEDS: TRAMADOL 50 MG TABLET PO (19:42)
[2022-10-12] MEDS: ATORVASTATIN 20 MG TABLET 40 MG PO (21:41)
[2022-10-12] MEDS: HYDROCODONE/ACET 5/325 TABLET 1 TAB PO (21:41)
[2022-10-13] VITALS (12 sets, daily range): BP systolic 98–126; BP diastolic 63–77; PULSE 65–110; RESP 18–26; TEMP 36.3–38.1; O2SAT 94–97
--- NOTE | 2022-10-13 03:34 | PC.NURSE ---
Pt Afib 100-120. Asymptomatic. On tele. No cardiac medications ordered at this time. 2L NC at 95% IV ABX running. C/O right sciatica pain and requesting something stronger than his home medications. notified. Gave ordered one time dose of [place] and pain resolved. stated she will be back in the am.
[2022-10-13 05:34] LABS: BUN Creatinine Ratio 23.9 (6-22); Blood Urea Nitrogen 32 mg/dL (9-20); Carbon Dioxide 26 mmol/L (22-32); Chloride 96 mmol/L (98-107); Estimated Glomerular Filt Rate 52 mL/min (>60); Glucose 98 mg/dL (80-110); HEMOLYSIS 18 (0-50); Magnesium 2.1 mg/dL (1.6-2.3); Potassium 3.3 mmol/L (3.4-5.1); Sodium 132 mmol/L (137-145)
[2022-10-13 05:38] LABS: Add Manual Diff / Slide Review NO; Basophils Absolute Auto 0 /uL (0-100); Basophils Percent Auto 0.1 % (0-2); Eosinophils Absolute Auto 0 /uL (0-450); Hematocrit 32.9 % (41-53); Hemoglobin 11.1 g/dL (13.5-17.5); Lymphocytes Absolute Auto 300 /uL (1100-4500); Lymphocytes Percent Auto 3.5 % (25-40); Mean Corpuscular HGB Conc 33.9 % (30-36); Mean Corpuscular Hemoglobin 27.5 PG (26-34); Monocytes Absolute Auto 200 /uL (0-900); Monocytes Percent Auto 2.1 % (3-14); Neutrophils Absolute Auto 9300 /uL (1500-7000); Neutrophils Percent Auto 94.3 % (50-75); Platelet Count 131 X10^3/uL (150-400); Red Blood Cell Count 4.06 X10^6/uL (4.5-5.9); Red Cell Distribution Width 16.9 % (11.6-14.8); White Blood Cell Count 9.8 X10^3/uL (4.5-11.0)
[2022-10-13 05:49] LABS: Creatine Kinase 320 U/L (55-170)
[2022-10-13 06:10] LABS: TSH w/ Reflex to FT4 0.16 uIU/mL (0.47-4.68)
[2022-10-13] MEDS: GABAPENTIN 600 MG TABLET PO (06:12)
[2022-10-13] MEDS: ACETAMINOPHEN 325 MG TABLET 975 MG PO ×2 (06:12→22:17)
[2022-10-13 07:12] LABS: Free T4, Direct Thyroxine 1.72 ng/dL (0.78-2.19)
[2022-10-13] MEDS: LEVOTHYROXINE 75 MCG TABLET 150 MCG PO (07:29)
[2022-10-13] MEDS: ENOXAPARIN 40 MG/0.4 ML SYRINGE SUBCUT (08:25)
--- NOTE | 2022-10-13 08:49 | DI.ECHO.S_ITS ---
[facility]---------+ [facility] +---------+ : : [address] : [place] : : : : [id number] : : : : Phone: [phone]+ Echocardiogram Report + + :Name: AGUSTIN TANG Study Date: 10/13/2022 Height: 71 in : :[facility] ReadingLocation: Weight: 195 lb : : Gender: Male BSA: 2.1 m2 : :: 1940 Age: 82 yrs BP: 106/63 mmHg: :Reason For Study: ATRIAL FIBRILLATION : :Ordering Physician: DONNIE, : :OMER OCONNOR Performed By: Desi Pratt : :Referring: OMER FIELDS : + + Interpretation Summary Images were not obtained from all of the standard acoustic windows due to the limited scope of the study. The ejection fraction is estimated to be 55-60%. There is severe aortic stenosis. Procedure: Images were not obtained from all of the standard acoustic windows due to the limited scope of the study. The study quality was technically adequate. Comparison is made with the echocardiogram of 06/19/2022. The patient was in atrial fibrillation with heart rates between 89-112 bpm during the exam. Left Ventricle: The left ventricle is normal in size. There is mild concentric left ventricular hypertrophy. The ejection fraction is estimated to be 55-60%. There are no obvious focal wall motion abnormalities noted but poor endocardial definition reduces the sensitivity for the detection of such. Aortic Valve: The aortic valve is severely calcified. There is severely reduced leaflet mobility. There is severe aortic stenosis. The peak aortic velocity is 3.8 m/sec. The aortic valve mean gradient is 37 mmHg. Pericardium/ Pleura There is no pericardial effusion. There is no pleural effusion. MMode/2D Measurements & Calculations LVIDd: 4.9 cm LVOT diam: 2.2 cm LVIDs: 3.9 cm FS: 21.1 % EPSS: 0.80 cm IVSd: 1.1 cm LVPWd: 1.1 cm LV jeff. diameter/BSA (cm/m^2): 2.3 LV sys. diameter/BSA (cm/m^2): 1.9 Doppler Measurements & Calculations Ao V2 max: 381.9 cm/sec LVOT Max Enrique: 83.5 cm/sec Ao V2 mean: 269.1 cm/sec LV V1 max P.8 mmHg Ao max P.6 mmHg LV V1 VTI: 12.5 cm Ao mean P.3 mmHg JADE(I,D): 0.88 cm2 Ao V2 VTI: 55.5 cm JADE(V,D): 0.86 cm2 sev ratio: 0.23 JADE indexed to BSA (cm^2/m^2): 0.42 SV(LVOT): 49.1 ml Reading Physician:TENZIN
[2022-10-13] MEDS: POTASSIUM CHLORIDE 20 MEQ TAB 40 MEQ PO ×2 (09:37→16:46)
--- NOTE | 2022-10-13 12:07 | CM.DANOTE ---
DCP: Patient is a 82yo M here under inpatient status. Came to the ER for generalized weakness over the past few days. From rounds, provider reports he is in Afib and has pneumonia. Payer: Medicare and [facility] PCP: Vee Chun From provider in rounds, patient is cognitively better today than yesterday. Provider is waiting on echo results to determine future of care. From nursing staff, it is unclear if he uses 02 at home at baseline. Nurse Justyn said it was difficult to get direct answers from him this morning. Nurse states he is sleepy but appears to be A/Ox4. PRECISION AGRONOMIST entered room and introduced self and role. Patient appeared A/Ox4, was able to answer who he is and where he was, but appeared sleepy. Patient appears hard of hearing in his right ear. It seems like patient can hear better if you stand on his left and speak towards his left ear. Patient reports that he drives at baseline and is able to manage needs at home. Patient reports he uses a cane and has a walker, but primarily uses cane. Patient reports having no stairs in his house. Patient reports that his will return at around 1200 today if we have more questions for . Patient reports being open to HH if necessary and expressed no preference in agency. Patient reports his will drive him own upon d/c. Plan: 1) home with transport in POV when medically stable. 2) home with HH if necessary. CM team will continue to follow with needs. NINA Wynn Discharge Planning/Care Management CM Discharge Assessment Start: 10/13/22 12:04 Freq: Status: Active Protocol: Document 10/13/22 12:04 (Rec: 10/13/22 12:07 [id number]) Discharge Planning Assessment Assigned Supervisor [employer] NINA Wynn DPOA/Assigned Designee Name Savana Hackett () Contact Information [phone] Advance Directives? No History Provided By Patient,Medical Record Prior Living Arrangements House Household Members spouse Type of transporation used prior to Drives own vehicle admit Independent with ADL's Yes Is patient alert and oriented? Yes Comment Per nursing staff, it is unclear if patient uses 02 at baseline. DME Already Rented / Owned FWW / Walker,Cane Comment primarily uses cane but owns a walker at home Comment Likely home with family. Open to HH if needed. Barriers to Discharge No Discharge Plan Home SNF/HH Preference no preference Whiteboard Updated in Patient Room with Yes name and ext. # of Supervisor [employer] Review Status In Process Next Review Type Continued Stay Review
--- NOTE | 2022-10-13 12:31 | DI.RAD.S_ITS ---
PROCEDURE: XR CHEST 1V INDICATIONS: worsening hypoxia TECHNIQUE: One view of the chest was acquired. COMPARISON: [facility], CR, XR CHEST 1V, 10/12/2022, 11:15. [facility], CR, XR CHEST 2V, 10/10/2022, 19:05. FINDINGS: Surgical changes and devices: None. Lungs and pleura: Lungs are abnormal with worsening alveolar consolidation at the retrocardiac left lower lobe.. No pleural effusions or pneumothorax. Mediastinum: Mediastinal contours appear normal. Heart size is normal. Bones and chest wall: No suspicious bony lesions. Overlying soft tissues appear unremarkable. IMPRESSION: Worsening pneumonia, increased consolidation left lower lobe. Dictated by: Jordan Gabriel M.D. on 10/13/2022 at 13:01 Approved by: Jordan Gabriel M.D. on 10/13/2022 at 13:01
[2022-10-13] MEDS: METOPROLOL TARTRATE 5 MG/5 ML INJ IV (13:08)
[2022-10-13] MEDS: FUROSEMIDE 20 MG/2 ML VIAL IV (13:08)
[2022-10-13 13:21] LABS: HCO3 ABG 22 mmol/L (23-27); Oxygen Saturation ABG 96 % (95-100); PCO2 ABG 29.3 mmHg (35-45); PO2 ABG 73 mmHg (80-100); TCO2 ABG 23 mmol/L (23-27); pH ABG 7.48 (7.35-7.45)
--- NOTE | 2022-10-13 13:25 | P.PN_ITS ---
Subjective Subjective Interval history: 82 M admitted with sepsis, presumed secondary to pneumonia. His encephalopathy was a bit improved. Just now, patient with abrupt decompenstation, requiring ventimask but poor perfusion on pulse ox monitor. ABG unremarkable, CXR performed with possible worsening pneumonia, but slightly worsened edema by my evaluation. Patient in afib with RVR, slowed with 5mg IV metoprolol, echo ordered and pending. He denied chest pain but troponin pending. EKG still afib with RVR without obvious acute ischemia. Exam Vital Signs (past 8 hours): - 10/13/22 07:36 10/13/22 07:36 10/13/22 07:36 Temperature 97.9 F Pulse Rate 103 H Respiratory Rate 18 Blood Pressure 106/63 Pulse Oximetry 94 94 Oxygen Delivery Method Nasal Cannula Nasal Cannula Oxygen Flow Rate 3 3 10/13/22 11:00 10/13/22 12:02 10/13/22 13:06 Temperature 97.3 F L 98.2 F Pulse Rate 80 65 Respiratory Rate 18 26 H Blood Pressure 118/73 126/72 Pulse Oximetry 95 95 97 Oxygen Delivery Method Nasal Cannula Oxygen Flow Rate 2 2 12 Oxygen Delivery Method Nasal Cannula Oxygen Flow Rate 12 Narrative Exam Narrative: General:? Patient is well developed and well nourished, in no distress at this time, sitting up in chair, appears fatigued. HEENT:? Normocephalic, atraumatic, extraocular muscles intact, oral pharynx is clear and mucous membranes are moist. Neck: supple and symmetric, trachea is midline, no cervical adenopathy. Negative for JVD Chest:? Normal AP diameter and contour without kyphoscoliosis, no tachypnea, equal chest rise bilaterally. Lungs:? LLL rales, no wheezing, Right lung CTA Cardio:?tachycardic, irregularly irregular with 2-3/6 systolic murmur Abdomen: S NT ND. Musculoskeletal:? Muscle strength and tone are equal within normal limits, no deformity. Extremities: No edema or joint effusions. No cyanosis or clubbing. Skin:? Pale,? Warm to touch,dry and intact without rashes, ulcerations or petechiae.? Neuro:? Alert and orientated x3,?mild confusion and lethargy, sensation to touch intact in all extremities, no gross deficits noted of cranial nerves. Psych:? Patient has a well-kept appearance, appropriate affect, mental status attitude thought context and judgment are appropriate for age. Objective Labs 10/13/22 04:48 10/13/22 04:48 Labs: Laboratory Results - last 24 hr 10/12/22 10/12/22 10/13/22 13:15 14:25 04:48 WBC 9.8 RBC 4.06 L Hgb 11.1 L Hct 32.9 L MCV 81.0 MCH 27.5 MCHC 33.9 RDW 16.9 H Plt Count 131 L Neut % (Auto) 94.3 H Lymph % (Auto) 3.5 L [place] % (Auto) 2.1 L Eos % (Auto) 0.0 L Baso % (Auto) 0.1 Neut # (Auto) 9300 H Lymph # (Auto) 300 L [place] # (Auto) 200 Eos # (Auto) 0 Baso # (Auto) 0 ABG pH ABG pCO2 ABG pO2 ABG HCO3 ABG Total CO2 ABG O2 Saturation ABG Base Excess FiO2 Sodium Potassium Chloride Carbon Dioxide BUN Creatinine Estimated GFR BUN/Creatinine Ratio Glucose Calcium Magnesium Total Creatine Kinase Troponin I 0.151 H* TSH Free T4 Urine Color Yellow Urine Appearance Clear Urine pH 5.0 Ur Specific [place] 1.010 Urine Protein 1+ H Urine Glucose (UA) Negative Urine Ketones Negative Urine Occult Blood 1+ H Urine Nitrate Negative Urine Bilirubin Negative Urine Urobilinogen 0.2 Ur Leukocyte Esterase Negative Urine RBC 0-1/hpf Urine WBC None seen Amorphous Sediment 2+ Urine Bacteria None seen Urine Mucus 1+ H Ur Culture Indicated? Cult not indicated 10/13/22 10/13/22 10/13/22 04:48 04:48 04:48 WBC RBC Hgb Hct MCV MCH MCHC RDW Plt Count Neut % (Auto) Lymph % (Auto) [place] % (Auto) Eos % (Auto) Baso % (Auto) Neut # (Auto) Lymph # (Auto) [place] # (Auto) Eos # (Auto) Baso # (Auto) ABG pH ABG pCO2 ABG pO2 ABG HCO3 ABG Total CO2 ABG O2 Saturation ABG Base Excess FiO2 Sodium 132 L Potassium 3.3 L Chloride 96 L Carbon Dioxide 26 BUN 32 H Creatinine 1.34 H Estimated GFR 52 L BUN/Creatinine Ratio 23.9 H Glucose 98 Calcium 8.0 L Magnesium 2.1 Total Creatine Kinase 320 H D Troponin I TSH 0.16 L Free T4 1.72 Urine Color Urine Appearance Urine pH Ur Specific [place] Urine Protein Urine Glucose (UA) Urine Ketones Urine Occult Blood Urine Nitrate Urine Bilirubin Urine Urobilinogen Ur Leukocyte Esterase Urine RBC Urine WBC Amorphous Sediment Urine Bacteria Urine Mucus Ur Culture Indicated? 10/13/22 13:06 WBC RBC Hgb Hct MCV MCH MCHC RDW Plt Count Neut % (Auto) Lymph % (Auto) [place] % (Auto) Eos % (Auto) Baso % (Auto) Neut # (Auto) Lymph # (Auto) [place] # (Auto) Eos # (Auto) Baso # (Auto) ABG pH 7.48 H ABG pCO2 29.3 L ABG pO2 73 L ABG HCO3 22 L ABG Total CO2 23 ABG O2 Saturation 96 ABG Base Excess -2.0 FiO2 Sodium Potassium Chloride Carbon Dioxide BUN Creatinine Estimated GFR BUN/Creatinine Ratio Glucose Calcium Magnesium Total Creatine Kinase Troponin I TSH Free T4 Urine Color Urine Appearance Urine pH Ur Specific [place] Urine Protein Urine Glucose (UA) Urine Ketones Urine Occult Blood Urine Nitrate Urine Bilirubin Urine Urobilinogen Ur Leukocyte Esterase Urine RBC Urine WBC Amorphous Sediment Urine Bacteria Urine Mucus Ur Culture Indicated? [facility] Medical History (Updated 10/12/22 @ 18:42 by Tavo Carmen DO) Aortic stenosis Ectopic atrial tachycardia Essential hypertension Prediabetes Surgical History History of lumbar fusion Family History Mother No pertinent past medical history Father No pertinent past medical history Social History household members: spouse Smoking Status: Former smoker Tobacco: How many years used: 50 alcohol intake: current substance use type: does not use Assessment & Plan Assessment & Plan narrative: 1. Sepsis secondary to bacterial pnuemonia, with acute metabolic encephalopathy, EVITA, thrombocytopenia, and acute respiratory failure with hypoxia. - no WBC elevation, but elevated procal and infiltrate seen on CXR and CT angio. - CTA negative for PE. Hypoxia has improved at arrival to the floor with initial interventions but is slightly worsened today. - given zosyn in the ER, and IV fluids. will hold additional fluid given aortic valve history, afib with RVR and elevated proBNP though suspected slightly hypovolemic at first. Change antibiotics to ceftriaxone and azithromycin for presumed bacterial pneumonia. Will follow up on available cultures. - with continued RVR today, suspect acute flash edema, will give IV lasix today. - baseline creatinine 1, elevated at 1.5 2 days ago, slight improvement to 1.34 today today. Plt 131 will continue to follow, likely in setting of sepsis - SOFA score of at least 3. 2. HTN - hold home medications in setting of sepsis but will start new metoprolol for afib with RVR. 3. paroxysmal atrial fibrillation with RVR, new diagnosis - patient's spouse report history of an ectopic tachycardia. EKG does appear to be afib with no obvious P-waves. acute decompensation 6/2 likely due to RVR. Improved with IV metoprolol x1, will start 25 mg TID metoprolol tartrate, change to succinate if effective. - TTE ordered. Consider anticoagulation depending on TTE results given afib diagnosis occurred in setting of sepsis. 4. Myocardial injury - suspect in setting of above sepsis. No obvious ischemia on EKG and no chest pain. Troponin already trended down. - will repeat today given RVR and acute respiratory decompensation. 5. Aortic stenosis - TTE ordered, prior history not known and no records. 6. Mild rhabdomyolysis. present on admission - as above will hold on additional fluids, repeat CK tomorrow AM 7. Hyponatremia, present on admission 8. Anemia of chronic disease - has been chronic, patient's stools likely dark due to iron supplementation. Has been seeing hematology as an outpatient and lab values similar today. Will continue to follow and watch for evidence of bleeding. 9. chronic pain - continue home gabapentin nightly prn, tramadol prn. 10 Prediabetes - will check A1c (pending), carb consistent diet ordered, if sugars are high on BMP in AM will start checking ACHS and initiate sliding scale, Code: Full, surrogate is patient's spouse DVT: Lovenox daily Dispo: Inpatient, probable discharge home in approx 2-3 days depending on evaluation and progress. Will probably need PT / OT after afib improves. Quality VTE Deep Vein Thrombosis/Pulmonary Embolism Present on Admission: No
[2022-10-13] MEDS: METOPROLOL IR 25 MG TABLET PO (13:42)
[2022-10-13 13:56] LABS: Troponin I 0.083 ng/mL (0.01-0.034)
[2022-10-13] MEDS: TRAMADOL 50 MG TABLET PO ×2 (16:53→23:17)
[2022-10-13] MEDS: cefTRIAXone 1,000 MG in SODIUM CHLORIDE 0.9% 100 ML 200 MG IV (17:32)
[2022-10-13] MEDS: AZITHROMYCIN 500 MG in DEXTROSE 5% IN WATER 250 ML 250 MG IV (18:09)
[2022-10-13] MEDS: ATORVASTATIN 20 MG TABLET 40 MG PO (22:15)
[2022-10-13] MEDS: METOPROLOL IR 25 MG TABLET 12.5 MG PO (22:16)
[2022-10-14] VITALS (14 sets, daily range): BP systolic 92–121; BP diastolic 62–77; PULSE 93–107; RESP 18–24; TEMP 36.5–37; O2SAT 3–97
[2022-10-14] MEDS: diphenhydrAMINE 25 MG TABLET PO ×2 (00:54→17:45)
--- NOTE | 2022-10-14 01:03 | PC.NURSE ---
Pt A&Ox4, VSS on oxymask at 3-4L. c/o itching, with visible hives on left anterior forearm. Notified Dr. Sellers [id number], bendadryl ordered and given. Pt ambulated to BR with FWW and 1 person assist, tolerated well.
[2022-10-14 04:54] LABS: BUN Creatinine Ratio 29.3 (6-22); Blood Urea Nitrogen 39 mg/dL (9-20); Carbon Dioxide 24 mmol/L (22-32); Chloride 97 mmol/L (98-107); Estimated Glomerular Filt Rate 53 mL/min (>60); Glucose 102 mg/dL (80-110); HEMOLYSIS < 15 (0-50); Magnesium 2.1 mg/dL (1.6-2.3); Potassium 3.4 mmol/L (3.4-5.1); Sodium 130 mmol/L (137-145)
[2022-10-14 04:57] LABS: Add Manual Diff / Slide Review NO; Basophils Absolute Auto 0 /uL (0-100); Eosinophils Absolute Auto 0 /uL (0-450); Hematocrit 32.1 % (41-53); Hemoglobin 10.9 g/dL (13.5-17.5); Lymphocytes Absolute Auto 400 /uL (1100-4500); Lymphocytes Percent Auto 3.6 % (25-40); Mean Corpuscular HGB Conc 33.9 % (30-36); Mean Corpuscular Volume 79.9 fL (80-100); Monocytes Absolute Auto 200 /uL (0-900); Monocytes Percent Auto 2.3 % (3-14); Neutrophils Absolute Auto 9400 /uL (1500-7000); Neutrophils Percent Auto 94.1 % (50-75); Platelet Count 137 X10^3/uL (150-400); Red Blood Cell Count 4.01 X10^6/uL (4.5-5.9); Red Cell Distribution Width 16.7 % (11.6-14.8)
[2022-10-14 05:29] LABS: x Labcorp Estim. Avg Glu (eAG) 131 mg/dL (.); x Labcorp Hemoglobin A1c 6.2 % (4.8-5.6)
[2022-10-14] MEDS: LEVOTHYROXINE 75 MCG TABLET 150 MCG PO (05:46)
[2022-10-14] MEDS: TRAMADOL 50 MG TABLET PO (09:30)
[2022-10-14] MEDS: ENOXAPARIN 40 MG/0.4 ML SYRINGE SUBCUT (09:31)
[2022-10-14] MEDS: METOPROLOL IR 25 MG TABLET 12.5 MG PO (09:31)
[2022-10-14] MEDS: POTASSIUM CHLORIDE 20 MEQ TAB 40 MEQ PO (10:34)
[2022-10-14] MEDS: GABAPENTIN 600 MG TABLET PO (11:57)
--- NOTE | 2022-10-14 14:43 | P.PN_ITS ---
Subjective Subjective Interval history: 82-year-old gentleman with hypertension, prediabetes, hyperlipidemia, hyp othyroidism, severe aortic stenosis, ectopic atrial tachycardia who was admitted with sepsis, pneumonia, new onset atrial fibrillation with rapid ventricular response, acute myocardial injury, and mild rhabdomyolysis Yesterday, patient had worsening of his respiratory status and required oxygen increase up to 12 L via Ventimask. He was given 20 mg of Lasix with improvement and by yesterday evening he was back down to 4 L of oxygen. Patient states he is feeling ?lousy?. He reports his breathing is about the same. He does complain of back pain. He takes tramadol at home and notes his dose was frequently increased from 1 tablet to 2 tablets up to 2 times daily. He also complains of poor appetite. He states he has some mild chest tightness but no pain or pressure. He is not been getting out of bed much. He is not aware of his fast heart rate. His (a retired nurse) and friend (a retired OBGYN) are at bedside. Exam Vital Signs (past 8 hours): - 10/14/22 07:00 10/14/22 08:00 10/14/22 11:00 Temperature 98.2 F Pulse Rate 101 H Respiratory Rate 24 Blood Pressure 121/77 Pulse Oximetry 3 L 92 93 Oxygen Delivery Method Oximask Oximask Oxygen Flow Rate 5 5 5 10/14/22 12:04 Temperature 98.6 F Pulse Rate 107 H Respiratory Rate 20 Blood Pressure 113/73 Pulse Oximetry 95 Oxygen Delivery Method Oxygen Flow Rate 7 Oxygen Delivery Method Oximask Oxygen Flow Rate 7 Narrative Exam Narrative: GEN: Alert, elderly male, pleasant, ill appearing, oriented x 3, NAD HEENT:NC, Face symmetric CHEST: Respiratory excursions symmetric, very diminished in the left lung, CTA on the right CV: mildly tachycardia, irregularly irregular, III-IV/ systolic murmur heard best in the RUSB, no R/G ABD: Soft, NT/ND, BT present in all 4 quadrants, no organomegaly or masses EXTR: warm, well perfused, no C/C/E SKIN: warm and dry, no rash NEURO: Alert and oriented x 3, nonfocal Objective Labs 10/14/22 04:32 10/14/22 04:32 Labs: Laboratory Results - last 24 hr 10/13/22 10/14/22 10/14/22 04:48 04:32 04:32 WBC 10.0 RBC 4.01 L Hgb 10.9 L Hct 32.1 L MCV 79.9 L MCH 27.0 MCHC 33.9 RDW 16.7 H Plt Count 137 L Neut % (Auto) 94.1 H Lymph % (Auto) 3.6 L [place] % (Auto) 2.3 L Eos % (Auto) 0.0 L Baso % (Auto) 0.0 Neut # (Auto) 9400 H Lymph # (Auto) 400 L [place] # (Auto) 200 Eos # (Auto) 0 Baso # (Auto) 0 Sodium 130 L Potassium 3.4 Chloride 97 L Carbon Dioxide 24 BUN 39 H Creatinine 1.33 H Estimated GFR 53 L BUN/Creatinine Ratio 29.3 H Glucose 102 Hgb A1c (Ref Lab) 6.2 H Estim Average Glucose 131 Calcium 8.0 L Magnesium 2.1 PFSH Medical History (Updated 10/12/22 @ 18:42 by Tavo Carmen DO) Aortic stenosis Ectopic atrial tachycardia Essential hypertension Prediabetes Surgical History History of lumbar fusion Family History Mother No pertinent past medical history Father No pertinent past medical history Social History household members: spouse Smoking Status: Former smoker Tobacco: How many years used: 50 alcohol intake: current substance use type: does not use Assessment & Plan Assessment & Plan narrative: 1. Sepsis d/t bacterial pneumonia WBC wnl. Afebrile. Initially had elevated procalcitonin, EVITA, thrombocytopenia, and metabolic encephalopathy. His encephalopathy is improving. Creatinine is down. Sepsis is resolving. 2. Pneumonia Presumed community-acquired pneumonia. Remains on Rocephin and azithromycin. I have added Mucinex to help him expectorate as he reports he has difficulty doing so. I have also ordered a flutter valve to help him clear his secretions. Spirometer has been ordered to assist with pulmonary hygiene. I have encouraged him to get up and move a bit more frequently. 3. Acute hypoxic respiratory failure Patient was on 7 L of oxygen when I arrived. He was sitting up at bedside to eat lunch. I did wean him successfully down to 4 L while he was sitting upright but sats dropped to approximately 89%. It did turn back up to 5 L with good improvement. When he did lay back down, his sats did drop again, likely reflection of his poor air movement when supine. I anticipate increasing his activity level, adding spirometry, and the flutter valve will assist with improving his oxygenation. 4. 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 Law recommended consideration for valve replacement. He has not scheduled that nor followed up as of yet. Given his new AFib, it likely will need to be pursued sooner than later. 5. New onset atrial fibrillation with RVR Rate is suboptimally controlled presently in the low 100 range at rest. Will give an additional dose of metoprolol 25 mg orally this afternoon. Will increase his scheduled a.m. and p.m. metoprolol from 12.5 mg to 25 mg. Continue monitoring. We discussed anticoagulation as well and will add apixaban. Incidentally, his TSH was low at 0.16. However, he had a normal free T4. Will likely need outpatient follow-up 6. Chronic back pain Will increase tramadol to 100 mg twice daily per patient's spouse request. Does have a as needed gabapentin order for 600 mg at HS. Will change it to 300 mg b.i.d. scheduled. Advised he can take Tylenol as needed through the day for discomfort as well. 7. Anemia of chronic disease Patient has been following with outpatient Hematology. It is felt this is anemia of chronic inflammatory disease. Hemoglobin is stable at 10.9. Will monitor closely in light of adding anticoagulation. 8. Thrombocytopenia [place] to be induced by sepsis as it was normal in August. It appears his platelet count is slowly rebounding and is up to 137 today. 9. Hyponatremia Slightly worse with diuresis yesterday. Holding additional diuresis. 10. Myocardial injury [place] to be secondary to sepsis and AFib with RVR. No evidence of ischemia on EKG and no symptoms. No further intervention planned. 11. Mild rhabdomyolysis Present on admission. CPK had improved from a peak of 801,800 1st 320 yesterday. No further intervention planned. 12. Prediabetes Hemoglobin A1c was 6.2%. Consistent with a mean glucose of 131. Will need jaylan oing monitoring. Continue controlled carb diet. Code status Full Prophylaxis Changing from Lovenox to apixaban Disposition Likely 1-[address] PT and OT consultations. Quality VTE Deep Vein Thrombosis/Pulmonary Embolism Present on Admission: No
--- NOTE | 2022-10-14 15:28 | PC.NURSE ---
Pt resting most of shift, SpO2 91-95% switiching between oxi mask and cannula Med w/tramadol at 0930 for discomfort w/goodm relief. Tele showing a-fib Family in to visit Call light w/in reach, bed alkrm on for pt safety Continue w/plan of care.
[2022-10-14] MEDS: METOPROLOL IR 25 MG TABLET PO ×2 (16:44→20:58)
[2022-10-14] MEDS: TRAMADOL 50 MG TABLET 100 MG PO ×2 (16:47→20:56)
[2022-10-14] MEDS: levoFLOXacin 750 MG/150 ML PIGGYBACK 100 MG IV (20:13)
[2022-10-14] MEDS: APIXABAN 5 MG TABLET PO (20:53)
[2022-10-14] MEDS: ATORVASTATIN 20 MG TABLET 40 MG PO (20:54)
[2022-10-14] MEDS: GABAPENTIN 300 MG CAPSULE PO (20:57)
[2022-10-14] MEDS: guaiFENesin ER 600 MG TAB 1200 MG PO (20:58)
[2022-10-15] VITALS (11 sets, daily range): BP systolic 100–130; BP diastolic 60–74; PULSE 76–87; RESP 16–20; TEMP 36.1–37.1; O2SAT 92–97
[2022-10-15] MEDS: diphenhydrAMINE 25 MG TABLET PO ×4 (01:18→20:16)
[2022-10-15 05:32] LABS: Add Manual Diff / Slide Review NO; Basophils Absolute Auto 0 /uL (0-100); Basophils Percent Auto 0.2 % (0-2); Eosinophils Absolute Auto 0 /uL (0-450); Eosinophils Percent Auto 0.1 % (2-4); Hemoglobin 10.4 g/dL (13.5-17.5); Lymphocytes Absolute Auto 400 /uL (1100-4500); Lymphocytes Percent Auto 4.2 % (25-40); Mean Corpuscular HGB Conc 33.5 % (30-36); Mean Corpuscular Volume 80.4 fL (80-100); Monocytes Absolute Auto 300 /uL (0-900); Monocytes Percent Auto 3.5 % (3-14); Neutrophils Absolute Auto 8400 /uL (1500-7000); Platelet Count 156 X10^3/uL (150-400); Red Blood Cell Count 3.86 X10^6/uL (4.5-5.9); Red Cell Distribution Width 16.8 % (11.6-14.8); White Blood Cell Count 9.2 X10^3/uL (4.5-11.0)
[2022-10-15] MEDS: LEVOTHYROXINE 75 MCG TABLET 150 MCG PO (05:43)
[2022-10-15 05:51] LABS: BUN Creatinine Ratio 30.7 (6-22); Blood Urea Nitrogen 39 mg/dL (9-20); Calcium 7.9 mg/dL (8.4-10.2); Carbon Dioxide 27 mmol/L (22-32); Chloride 97 mmol/L (98-107); Estimated Glomerular Filt Rate 56 mL/min (>60); Glucose 107 mg/dL (80-110); HEMOLYSIS < 15 (0-50); Magnesium 2.3 mg/dL (1.6-2.3); Potassium 3.5 mmol/L (3.4-5.1); Sodium 128 mmol/L (137-145)
--- NOTE | 2022-10-15 07:42 | P.PN_ITS ---
Subjective Subjective Interval history: 82-year-old gentleman with hypertension, prediabetes, hyperlipidemia, hyp othyroidism, severe aortic stenosis, ectopic atrial tachycardia who was admitted with sepsis, pneumonia, new onset atrial fibrillation with rapid ventricular response, acute myocardial injury, and mild rhabdomyolysis. Two days ago, patient had worsening of his respiratory status and required oxygen increase up to 12 L via Ventimask.? He was given 20 mg of Lasix with improvement and by that evening he was back down to 4 L of oxygen.? Yesterday, he was encouraged to use a flutter valve and IS, was given mucinex and encouraged to increase his activity. His metoprolol was increased to improve rate control. In the late afternoon ,he developed hives, felt likelt to be d/t either the ceftriaxone or less likely, azithromycin. He was transitioned to levaquin monotherapy and given a one time dose of benadryl. Patient states he continues to feel unwell. He states his breathing is improved. He continues to complain of back pain and is hoping to get some medication this morning. Has been using the spirometer and flutter valve periodically. He continues to have difficulty expectorating.? He did drink 3 ensures yesterday. His appetite remains poor Exam Vital Signs (past 8 hours): - 10/14/22 15:00 10/14/22 16:38 10/14/22 17:27 Temperature 98.3 F Pulse Rate 107 H Respiratory Rate 22 Blood Pressure 117/68 Pulse Oximetry 4 L 95 95 Oxygen Delivery Method Nasal Cannula Nasal Cannula Oxygen Flow Rate 6 6 Fraction of Inspired Oxygen 44 10/14/22 20:00 10/14/22 19:00 Temperature 98 F Pulse Rate 101 H Respiratory Rate 23 Blood Pressure 112/70 Pulse Oximetry 95 94 Oxygen Delivery Method Nasal Cannula Oxygen Flow Rate 6 3 Fraction of Inspired Oxygen Fraction of Inspired Oxygen 44 SaO2/FiO2 Ratio 215 Oxygen Delivery Method Nasal Cannula Oxygen Flow Rate 6 Narrative Exam Narrative: GEN: Alert, elderly male, pleasant, alert and oriented x 3, NAD HEENT:NC, Face symmetric CHEST: Respiratory excursions symmetric, improved breath sounds in the left lung, CTA on the right CV: mildly tachycardia, irregularly irregular, III-IV/ systolic murmur heard best in the RUSB, no R/G ABD: Soft, NT/ND, BT present in all 4 quadrants, no organomegaly or masses EXTR: warm, well perfused, no C/C/E SKIN: warm and dry, some improvement noted to the hives on his forearms, remainder of the rash has the appearance of erythema multiforme on the posterior legs and abdomen, also improving NEURO: Alert and oriented x 3, nonfocal Objective Labs 10/15/22 04:53 10/15/22 04:53 Labs: Laboratory Results - last 24 hr 10/13/22 10/14/22 10/14/22 04:48 04:32 04:32 WBC 10.0 RBC 4.01 L Hgb 10.9 L Hct 32.1 L MCV 79.9 L MCH 27.0 MCHC 33.9 RDW 16.7 H Plt Count 137 L Neut % (Auto) 94.1 H Lymph % (Auto) 3.6 L [place] % (Auto) 2.3 L Eos % (Auto) 0.0 L Baso % (Auto) 0.0 Neut # (Auto) 9400 H Lymph # (Auto) 400 L [place] # (Auto) 200 Eos # (Auto) 0 Baso # (Auto) 0 Sodium 130 L Potassium 3.4 Chloride 97 L Carbon Dioxide 24 BUN 39 H Creatinine 1.33 H Estimated GFR 53 L BUN/Creatinine Ratio 29.3 H Glucose 102 Hgb A1c (Ref Lab) 6.2 H Estim Average Glucose 131 Calcium 8.0 L Magnesium 2.1 PFSH Medical History (Updated 10/12/22 @ 18:42 by Tavo Carmen DO) Aortic stenosis Ectopic atrial tachycardia Essential hypertension Prediabetes Surgical History History of lumbar fusion Family History Mother No pertinent past medical history Father No pertinent past medical history Social History household members: spouse Smoking Status: Former smoker Tobacco: How many years used: 50 alcohol intake: current substance use type: does not use Assessment & Plan Assessment & Plan narrative: 1. Pneumonia Presumed community-acquired pneumonia.?Developed hives late yesterday afternoon and he was changed from Rocephin/Azithromcyin to Levaquin. Continues Mucinex, flutter valve, IS. O2 sat improved and he has been weaned down to 2lpm. Overall improving. 2. Acute hypoxic respiratory failure Patient was on 7 L of oxygen yesterday. With above interventions, he is now down to 2lpm. Will continue to wean oxygen as tolerated. 3. Drug rash Pt developed hives yesterday felt likely to be d/t cephalosporin allergy (though could be azithro). Both were d/c'd and he is now on levaquin. He did receive Benadryl overnight. Overall, the rash appears improved. 4. 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 Law recommended consideration for valve replacement.? He has not scheduled that nor followed up as of yet.? Given his new AFib, it likely will need to be pursued sooner than later. 5. New onset atrial fibrillation with RVR Rate is improved w/additional metoprolol. SBP low normal at 100-102, but he is asymptomatic. Apixiban added yesterday given his high [id number] score.? Incidentally, his TSH was low at 0.16.? However, he had a normal free T4.? Will likely need outpatient follow-up 6. Chronic back pain Continue tramadol to 100 mg twice daily per patient's spouse request. Continue gabapentin 300 mg b.i.d. scheduled.? Advised he can take Tylenol as needed through the day for discomfort as well. 7. Anemia of chronic disease Patient has been following with outpatient Hematology.? It is felt this is anemia of chronic inflammatory disease.? Hemoglobin is stable. No evidence of bleeding. 8. Thrombocytopenia [place] to be induced by sepsis as it was normal in August.? It appears his platelet count is slowly rebounding and is up to 150 today. 9. Hyponatremia 128 today. Upon review he took in >3L of fluid yesterday. He appears euvo lemic. Will send urine studies. Fluid restriction ordered. 10. Myocardial injury [place] to be secondary to sepsis and AFib with RVR.? No evidence of ischemia on EKG and no symptoms.? No further intervention planned. 11. Mild rhabdomyolysis Present on admission.? CPK had improved from a peak of 818 on 10/12 to 320 on 10/13.? No further intervention planned. 12. Prediabetes Hemoglobin A1c was 6.2%.? Consistent with a mean glucose of 131.? Will need ongoing monitoring.? Continue controlled carb diet. Resolved issues: Sepsis d/t bacterial pneumonia Code status Full Prophylaxis On apixaban Disposition Likely 1 more inpatient days.? Await PT/OT evals. Quality VTE Deep Vein Thrombosis/Pulmonary Embolism Present on Admission: No
[2022-10-15] MEDS: APIXABAN 5 MG TABLET PO ×2 (09:52→20:17)
[2022-10-15] MEDS: POTASSIUM CHLORIDE 20 MEQ TAB 40 MEQ PO (09:52)
[2022-10-15] MEDS: TRAMADOL 50 MG TABLET 100 MG PO ×2 (09:52→20:15)
[2022-10-15] MEDS: guaiFENesin ER 600 MG TAB 1200 MG PO ×2 (09:52→20:16)
[2022-10-15] MEDS: METOPROLOL IR 25 MG TABLET PO ×2 (09:53→20:17)
[2022-10-15 11:53] LABS: Creatinine Urine Random 53.6 mg/dL; Sodium Urine Random < 5 mmol/L (30-90)
[2022-10-15] MEDS: ACETAMINOPHEN 325 MG TABLET 975 MG PO (12:57)
--- NOTE | 2022-10-15 14:00 | CM.DPNOTE ---
Discharge Planning Note: Met with patient who states he is feeling a little better. He is still needing O2. Awaiting PT/OT evals. Lives with spouse Savana in their own home. Discussed Home Health as was discussed previously, he wants his to decide. We will follow up tomorrow with her. Plan: Discharge home to care of when medically cleared. Possibly Home Health if needed and in agreement. Ania Wang RN/DCP
[2022-10-15] MEDS: levoFLOXacin 750 MG/150 ML PIGGYBACK 100 MG IV (18:31)
[2022-10-15] MEDS: ATORVASTATIN 20 MG TABLET 40 MG PO (20:16)
[2022-10-15] MEDS: GABAPENTIN 300 MG CAPSULE PO (20:17)
[2022-10-16] VITALS (7 sets, daily range): BP systolic 95–106; BP diastolic 64–76; PULSE 64–77; RESP 16–20; TEMP 36.3–36.7; O2SAT 90–97
--- NOTE | 2022-10-16 00:04 | PC.NURSE ---
2010: Pt has visible hives in groin area. Benadryl is not due, received a one now dose of benadryl. 0000: Pt has hives on ULE and lower abdomen, denies being itchy.
[2022-10-16] MEDS: diphenhydrAMINE 25 MG TABLET PO ×2 (02:46→09:13)
[2022-10-16 05:30] LABS: Add Manual Diff / Slide Review NO; Basophils Absolute Auto 0 /uL (0-100); Basophils Percent Auto 0.2 % (0-2); Eosinophils Absolute Auto 200 /uL (0-450); Eosinophils Percent Auto 3.1 % (2-4); Hematocrit 31.4 % (41-53); Hemoglobin 10.6 g/dL (13.5-17.5); Lymphocytes Absolute Auto 600 /uL (1100-4500); Lymphocytes Percent Auto 9.9 % (25-40); Mean Corpuscular HGB Conc 33.8 % (30-36); Monocytes Absolute Auto 300 /uL (0-900); Monocytes Percent Auto 5.4 % (3-14); Neutrophils Absolute Auto 5100 /uL (1500-7000); Neutrophils Percent Auto 81.4 % (50-75); Platelet Count 198 X10^3/uL (150-400); Red Blood Cell Count 3.93 X10^6/uL (4.5-5.9); White Blood Cell Count 6.2 X10^3/uL (4.5-11.0)
[2022-10-16 05:41] LABS: BUN Creatinine Ratio 30.8 (6-22); Blood Urea Nitrogen 40 mg/dL (9-20); Calcium 8.1 mg/dL (8.4-10.2); Carbon Dioxide 26 mmol/L (22-32); Chloride 100 mmol/L (98-107); Estimated Glomerular Filt Rate 54 mL/min (>60); Glucose 106 mg/dL (80-110); HEMOLYSIS < 15 (0-50); Potassium 3.6 mmol/L (3.4-5.1); Sodium 133 mmol/L (137-145)
[2022-10-16] MEDS: LEVOTHYROXINE 75 MCG TABLET 150 MCG PO (05:51)
[2022-10-16] MEDS: guaiFENesin ER 600 MG TAB 1200 MG PO (09:12)
[2022-10-16] MEDS: GABAPENTIN 300 MG CAPSULE PO (09:12)
[2022-10-16] MEDS: APIXABAN 5 MG TABLET PO (09:13)
[2022-10-16] MEDS: METOPROLOL IR 25 MG TABLET PO (09:13)
[2022-10-16] MEDS: TRAMADOL 50 MG TABLET 100 MG PO (09:13)
--- NOTE | 2022-10-16 09:38 | OT.IP.EVAL ---
Current Diagnoses Sepsis, unspecified organism (10/12/22) Past Medical History (Last Updated 10/12/22 @ 18:42 by Tavo Carmen DO) Aortic stenosis Ectopic atrial tachycardia Essential hypertension Prediabetes Surgical History (Last Reviewed 10/12/22 @ 18:10 by Tavo Carmen DO) History of lumbar fusion Occupational Therapy Inpatient Evaluation/Re-Eval M1 PT/OT-IP Prior Functional Status Start: 10/16/22 10:42 Freq: NEEDED Status: Active Protocol: Document 10/16/22 10:42 CGR (Rec: 10/16/22 10:56 R [id number]) Medical Review Prior Functional Status Medical History Reviewed Yes Communication Pt is an effective verbal communicator but is [place] with use of hearing aides. 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 one step to enter, no railing. Home Environment Standard Height Toilet,Walk in Shower,Tub/Shower Home Equipment Four Wheel Walker,Straight Cane,Hand Held Shower Employment Status Retired Additional Social History Comment Pt lives with his Savana, and sleeps in a flat bed. M2 OT-IP Current Condition Start: 10/16/22 10:42 Freq: Status: Active Protocol: Document 10/16/22 10:42 CGR (Rec: 10/16/22 10:56 R [id number]) Occupational Therapy Current Condition Current Condition Evaluation Date 10/16/22 Treatment Diagnosis PNA, sepsis Diagnosis Onset Date 10/12/22 M3 OT- IP Subjective and Pain Start: 10/16/22 10:42 Freq: Status: Active Protocol: Document 10/16/22 10:42 CGR (Rec: 10/16/22 10:56 R [id number]) OT- Subjective Occupational Therapy Visit Type Type Initial Evaluation Visit Start Time 09:20 Visit Stop Time 09:38 Total Visit Minutes 18 Notes Pt in with nursing when OT entered. Pt was in bed without o2. Occupational Therapy Visit Comments Patient Comments I only want to go home. OT Pain Assessment Pain When Pain Assessed At Rest Pain Present Pain Present Pain Reported Location Right Leg Intensity 6 Scale Used Numeric (0 - 10) Management Techniques Distraction,Modification of Treatment,Re-positioning M4 OT- IP ADL's Start: 10/16/22 10:42 Freq: Status: Active Protocol: Document 10/16/22 10:42 CGR (Rec: 10/16/22 10:56 R [id number]) OT [id number] Comments OT Self-Feeding Comments not meal time OT ADL-Grooming Comments OT Grooming Comments pt declined stating that he already performed OT ADL-Oral Care Comments Oral Care Comments pt declined stating that he already performed OT ADL-Dressing Comments OT Dressing Comments not performed, pt declined OT ADL-Toileting General Evaluation Toileting Ability Independent Comments OT Toileting Comments simulated seated on the toilet OT ADL-Bathing Comments OT Bathing Comments not performed M5 OT- IP IADL's Start: 10/16/22 10:42 Freq: Status: Active Protocol: Document 10/16/22 10:42 CGR (Rec: 10/16/22 10:56 R [id number]) OT-Instrumental Activities of Daily Living Deficits IADL Deficits Identified No Deficits Home Safety Awareness Awareness of Need for Assistance at Home Good Awareness Ability to Problem Solve Emergency Able to Problem Solve Situations Medication Management Medication Management No Deficits Identified Money Management Money Management No Deficits Identified Meal Preparation Meal Preparation Caregiver Provides Assist Communication Engineer Communication Engineer Caregiver Provides Assist Driving Driving Comments Pt states he is 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 M6 OT- IP Functional Cognition Start: 10/16/22 10:42 Freq: Status: Active Protocol: Document 10/16/22 10:42 CGR (Rec: 10/16/22 10:56 R [id number]) Cognitive Factors Limiting Selfcare Function Cognitive Ability Level of Alertness Alert Patient Orientation Name,Age,Birthday,Month,Date, Year,Day of Week,Situation Attention Span Ability Capable of Focused Attention, Capable of Sustained Attention Ability to Follow Commands Able to Follow One Step Commands with Increased Time, Able to Follow One Step Commands with Repetition Memory Description No Deficits Noted OT- Vision and Hearing OT- Hearing Assessment OT- Hearing Assessment Hearing Impaired,Use of Hearing Aids OT- Vision Assessment Vision History Cataracts Visual Acuity WFL Visual Attentiveness WFL Occular Pursuits WFL Visual Convergence WFL M7 OT- IP Mobility and Balance Start: 10/16/22 10:42 Freq: Status: Active Protocol: Document 10/16/22 10:42 CGR (Rec: 10/16/22 10:56 CGR [id number]) OT- Bed Mobility Assessment Rolling Type of Rolling Roll to Left Level of Assistance Standby Assistance Supine to Sit Supine to Sit Assist Standby Assistance Scooting Scooting to Edge of Bed Standby Assistance OT-Transfer Assessment Sit to and From Stand Sit to and from Stand Standby Assistance Transfers Transfer Ability Standby Assistance Technique Transfer Destination Bed,Chair,Toilet Transfer Technique Stand Step Pivot Devices Transfer Assistive Devices Gait Belt,Front Wheeled Walker Comments Mobility Comments Pt needs VC to place hands correctly for safe use of the walker. Pt ambulated to the bathroom then sat on the toilet but did not void. Pt then agreeable to sitting up in chair. Pt left sitting up in chair with VC for handplacement throughout session. OT- Balance Assessment Sitting Balance and Reactions Static Sitting Balance Ability Good Dynamic Sitting Balance Ability Good M8 OT- IP Objective Assessments Start: 10/16/22 10:42 Freq: Status: Active Protocol: Document 10/16/22 10:42 CGR (Rec: 10/16/22 10:56 CGR [id number]) OT Gross Range of Motion Upper Extremity Range of Motion Assessment Within Functional Limits OT Strength Upper Extremity Strength Assessment Within Functional Limits Comments Strength Comments grossly 4+/5 except L shld 4-/ 5 OT- Coordination Assessment Upper Extremity Finger to Nose Test Within Functional Limits Finger Tapping Test Within Functional Limits OT-Muscle Tone Assessment Muscle Tone WNL Yes OT Sensation Assessment Edema Edema Absent M9 OT- IP Assessment and Plan Start: 10/16/22 10:42 Freq: Status: Active Protocol: Document 10/16/22 10:42 CGR (Rec: 10/16/22 10:56 CGR [id number]) OT Summary Assessment and Plan Potential Rehabilitation Potential Good Analytic Complexity at Evaluation Moderate Summary OT Impairments Pain,Balance,Functional Mobility,Grooming,Dressing, Toileting,Bathing,Toilet Transfers,Shower Transfers, Activity Tolerance Progress Towards Goals Progressing Toward Goals Assessment Summary Pt presents as a moderate complexity evaluation s/p admit for PNA and sepsis. Pt states that he only wants to go home and he feels confident to do so. Pt states his will help him as needed. Of note, pt's o2 stats dropped from 92 to 85 with sit to stand and took ~3 minutes to climb up to 90 on 2L while standing. Pt is able to follow directions but without good understanding of concepts, for example, pt was unable to correctly follow pursed lip breathing and slow his breathing rate. Pt is likely to be safe to discharge home with family support and home health but will likely need home O2 at this time. Goals Grooming Goal Independent Dressing Goal Independent Toileting Goal Independent Bathing Goal Independent Toilet Transfer Goal Independent Shower Transfer Goal Independent Days to Meet Goals 5 Frequency of Treatment Frequency Of Treatment Once a Day Treatment Plan OT Treatment Plan ADL Training,Functional Mobility,Patient/Family Education,Discharge Planning Other Treatment Recommendations and Next ADLs at sink, shower Treatment Focus Discharge Recommendations OT Discharge Recommendations Home with Assistance,Home Health Transportation Needs at Discharge Private Vehicle
--- NOTE | 2022-10-16 14:10 | CM.DPC ---
DCP Cont: Discussed patient during team rounds. Patient is to be discharged home today, would benefit with home health. Met with patient and spouse, Savana. Went over list of agencies that serve the [place] area. They stated, which ever agency can see patient the soonest. Called [facility], spoke to Shahnaz. They may not be able to see patient until Sunday, the , or next week. Called [facility] and spoke to Wendy. Can see patient by Sunday, updated patient and spouse, they will go with [facility]. Let Wendy know the patient's name. Faxed referral over to [facility], face sheet, face to face, orders, O.T. notes and H&P. DC Summary is currently pending. Gave patient and spouse the [facility] brochure. P: Patient is to be discharged home with [facility]. Taylor Ovalle RN/Italian Teacher
[2022-10-16] MEDS: levoFLOXacin 750 MG/150 ML PIGGYBACK 100 MG IV (14:22)
--- NOTE | 2022-10-16 14:25 | PT.IIE ---
Current Diagnoses Sepsis, unspecified organism (10/12/22) Surgical History (Last Reviewed 10/12/22 @ 18:10 by Tavo Carmen DO) History of lumbar fusion Medical History (Last Updated 10/12/22 @ 18:42 by Tavo Carmen DO) Aortic stenosis Ectopic atrial tachycardia Essential hypertension Prediabetes Physical Therapy Inpatient Evaluation/Re-Eval M1 PT/OT-IP Prior Functional Status Start: 10/16/22 10:42 Freq: NEEDED Status: Active Protocol: Document 10/16/22 14:07 ES (Rec: 10/16/22 14:24 ES [id number]) Medical Review Prior Functional Status Medical History Reviewed Yes Communication Pt is an effective verbal communicator but is [place] with use of hearing aides. 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 one step to enter, no railing. Home Environment Standard Height Toilet,Walk in Shower,Tub/Shower Home Equipment Four Wheel Walker,Straight Cane,Hand Held Shower Employment Status Retired Additional Social History Comment Pt lives with his Savana, and sleeps in a flat bed. Does not use home O2 at baseline. M2 PT-IP Current Condition Start: 10/16/22 14:07 Freq: NEEDED Status: Active Protocol: Document 10/16/22 14:07 ES (Rec: 10/16/22 14:24 ES [id number]) Physical Therapy Current Condition Current Condition Evaluation Date 10/16/22 Treatment Diagnosis Pneumonia Onset Date 10/12/22 M3 PT-IP Subjective Start: 10/16/22 14:07 Freq: NEEDED Status: Active Protocol: Document 10/16/22 14:07 ES (Rec: 10/16/22 14:24 ES [id number]) Subjective Physical Therapy Visit Type Type Initial Evaluation Visit Start Time 13:36 Visit Stop Time 14:04 Total Visit Minutes 28 Physical Therapy Visit Comments Patient Comments Patient resting comfortably in bed, agreeable to work with PT. Stated he hates using the FWW and would prefer to use his 4WW (he's borrowing from a friend). Stated his back hurts when sitting in the hospital recliner. M4 PT-IP Mobility and Gait Start: 10/16/22 14:07 Freq: NEEDED Status: Active Protocol: Document 10/16/22 14:07 ES (Rec: 10/16/22 14:24 ES [id number]) PT-Bed Mobility Assessment Supine to Sit Supine to Sit Independent,Head of Bed Elevated Sit to Supine Sit to Supine Independent,Head of Bed Elevated Scooting Scooting to Edge of Bed Independent Scooting Up and Down in Bed Independent PT-Transfer Assessment Sit to and From Stand Sit to and from Stand Contact Guard Assistance,Use of Upper Extremities Equipment Transfer Assistive Device Gait Belt,4 Wheeled Walker Transfers Transfer Destination Chair Transfer Technique Stand Step Pivot Transfer Ability Level of Assist Contact Guard Assistance,Use of Upper Extremities Comments Mobility Comments Poor eccentric control with LE 's when going to sit. Cued for hand placement on chair vs 4WW during sit to/from stand for increased safety and better eccentric control. Gait Assessment Gait Gait Assistance Required: Contact Guard Assist Distance (Feet) 120 Assistive Devices Assistive Device Gait Belt,4 Wheeled Walker Gait Deviations General Gait Pattern Decreased Stride Length, Decreased Feet Clearance, Flexed Trunk Factors Limiting Gait Function Factors Limiting Gait Function Decreased Strength Comments Gait Comments Ambulated 2x60 ft with seated rest break due to decrease in SPO2. After first 60 ft, SPO2 was 87% on 1L/min O2, improved to 88% after 2-3 minutes rest , then O2 increased 1.5L/min and SPO2 improved to 91%. PT-Balance Assessment Sitting Balance and Reactions Static Sitting Balance Ability Good Dynamic Sitting Balance Ability Good Standing Balance and Reactions Static Standing Balance Ability Good Dynamic Standing Balance Ability Fair Device Used 4WW Functional Assessments Functional Tests 30 Seconds Sit to Stand Test 0 M5 PT-IP Objective Assessments Start: 10/16/22 14:07 Freq: NEEDED Status: Active Protocol: Document 10/16/22 14:07 ES (Rec: 10/16/22 14:24 ES [id number]) Orientation Orientation/Cognition Level of Alertness Alert Orientation Name,Age,Birthday,Month,Date, Year,Day of Week,Place, Situation Language Function Ability No Deficits Noted Safety Awareness Understands Safety Issues Memory Description No Deficits Noted Gross Range of Motion Upper Extremity ROM Assessment Within Functional Limits Lower Extremity ROM Assessment Within Functional Limits Strength Upper Extremity Strength Assessment Within Functional Limits Lower Extremity Strength Assessment Bilaterally Impaired Comments Strength Comments BLE's grossly 4/5. Unable to perform STS without UE support even from raised surface. M6 PT-IP Treatment Start: 10/16/22 14:07 Freq: NEEDED Status: Active Protocol: Document 10/16/22 14:07 ES (Rec: 10/16/22 14:24 ES [id number]) Physical Therapy Treatment Exercises Exercises Ankle Pumps,Short Arc Quads Education Education Provided Safety M7 PT-IP Assessment and Plan Start: 10/16/22 14:07 Freq: NEEDED Status: Active Protocol: Document 10/16/22 14:07 ES (Rec: 10/16/22 14:24 ES [id number]) PT Summary Assessment and Plan Potential Rehabilitation Potential Good Status of Condition at Evaluation Evolving Summary Impairments Pain,Strength,Balance, Transfers,Gait,Activity Tolerance Assessment Summary Patient is a 82 year old male who presents with impaired functional mobility due to decreased aerobic capacity, general weakess and deconditioning, decreased strength in LE's related to hx of back problems, and back pain. He required at least 1. 5L/min O2 during activity to maintain SPO2 >90%, ambulating limited distances due to decreased activity tolerance and strength. He will benefit from skilled therapy to improve his ability to tolerate functional activity and to increase safety and independence with mobility. Goals Transfer Goal Independent,Four Wheeled Walker Gait Goal Independent,Four Wheel Walker Gait Distance 150 Other Goals Patient will be able to ascend /descend 2 steps indep with use of SPC. Days to Meet Goals 5 Frequency of Treatment Frequency Of Treatment Once a Day Treatment Plan Physical Therapy Treatment Plan Transfer Training,Gait Training,Therapeutic Exercise, Discharge Planning Precautions Other Precautions Fall risk Recommendations To Nursing Amount of Assist Needed 1 Person Assist Discharge Recommendations PT Discharge Recommendations Home with Assistance,Home Health Transportation Needs at Discharge Private Vehicle
--- NOTE | 2022-10-16 15:47 | PM.DS.1 ---
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 Patient defers much of his history to his spouse at bedside, as he feels a bit slow and groggy. states he has been weak for the past 5 days, complaining of lethargy, decreased appetite and mild shortness of breath. He denies recent rhinorrhea, nasal congestion, sick contacts, he denies cough or any sputum production. He has had no chest pain, abdominal pain, dysuria, or urinary frequency. relates that he has remained sharp mentally, but much slower and slightly more forgetful than normal. She states he has had no memory issues in the past. He typically ambulates with a cane due to his chronic back pain and sciatica, but the last 5 days he has needed a lot of help and has needed to use a walker instead. He has had recent black stools but has also been on iron supplementation. In the emergency room, he reportedly desaturated on room air to the upper 80s, was placed on 2L via NC. The remainder of his vital signs were unremarkable. Labs were notable for a stable anemia with Hg 11.7, Plt 131, sodium of 130, creatinine of 1.44 (1.5 2 days ago, 1.0 at baseline), troponin 0.165 improved to .151 on repeat. ProBNP 6440. Procalcitonin was 1.25, CK mildly elevated at 818. CTA was performed, no PE found but did show a L Basilar consolidation consistent with pneumonia. He was admitted for further management. Discharge Providers Provider Date of admission: 10/12/22 14:32 Discharge Date: 10/16/22 Primary care physician: Vee Chun MD Consults: 10/14/22 14:58 Consult to Occupational Therapy Evaluate & Treat Comment: Physician Instructions: Evaluate and treat Consult to Physical Therapy Evaluate & Treat Comment: Physician Instructions: Evaluate and Treat 10/16/22 13:58 Consult to Home Health Routine Comment: Reason For Exam: Home Health RN, P.T, O.T. Discharge provider: Yovana Eng MD Summary Hospital Course Discharge Diagnosis: 1. Community-acquired pneumonia, improved 2. Acute hypoxic respiratory failure, resolved 3. Drug rash, presumed to be secondary to either Rocephin or azithromycin, improved 4. Severe aortic stenosis 5. New onset atrial fibrillation with intermittent RVR 6. Chronic back pain 7. Anemia of chronic disease 8. Hyponatremia, improving 9. Thrombocytopenia, resolved 10. Acute myocardial injury, resolved, felt not to be ischemic 11. Mild rhabdomyolysis, resolved 12. Prediabetes, hemoglobin A1c 6.2% 13. Sepsis secondary to bacterial pneumonia, resolved Hospital Course: 82-year-old gentleman with hypertension, prediabetes, hyperlipidemia, hypothyroidism, severe aortic stenosis, ectopic atrial tachycardia who was admitted with sepsis, pneumonia, new onset atrial fibrillation with rapid ventricular response, acute myocardial injury, and mild rhabdomyolysis.? On October 13, patient had worsening of his respiratory status and required oxygen increase up to 12 L via Ventimask.? He was given 20 mg of Lasix with improvement and by that evening he was back down to 4 L of oxygen.? On October 14, he was encouraged to use a flutter valve and IS, was given mucinex and encouraged to increase his activity.? His metoprolol was increased to improve rate control.? In the late afternoon ,he developed hives, felt likely to be d/t either the ceftriaxone or less likely, azithromycin.? He was transitioned to levaquin monotherapy and given as needed Benadryl. His hives improve. He continued to improve and was successfully weaned to room air on the date of discharge. He is completing his final dose of Levaquin (to complete a 7 day course of therapy) for pneumonia prior to discharge. He has been rate controlled in the 70s to 80s with the addition of the metoprolol. He has been tolerating Eliquis anticoagulation as well. He did have some hyponatremia and was placed on fluid restriction on the day prior to discharge. This had dramatically improved and the time of discharge, he is advised to resume his usual amount of fluid intake. Patient is strongly encouraged to follow-up with cardiology to discuss getting his aortic valve replacement scheduled. Advised that if he were to develop recurrent hives, to contact Cardiology for an alternative rate-controlling medication is the only other culprit that could be responsible for the hives was metoprolol. (Eliquis had not been started prior to the development of the hives; it is presumed the hives were caused by antibiotics which were discontinued). Patient was noted by therapies to be a bit weak with some balance issues. Home health was recommended at discharge. Patient is discharged in stable condition. Status at Discharge Cognitive/behavioral status at discharge: at baseline, oriented Overall status at discharge: patient is progressing back to baseline Time Spent with Patient Time spent: Greater than 30 minutes (45 minutes spent coordinating discharge, and educating patient and his ) Exam Vital Signs (past 8 hours): - 10/16/22 08:27 10/16/22 08:00 10/16/22 09:00 Temperature 97.7 F Pulse Rate 68 Respiratory Rate 18 Blood Pressure 104/64 Pulse Oximetry 94 96 90 L Oxygen Delivery Method Nasal Cannula Room Air Oxygen Flow Rate 1 2 10/16/22 12:00 Temperature 98.0 F Pulse Rate 64 Respiratory Rate 16 Blood Pressure 95/64 Pulse Oximetry 94 Oxygen Delivery Method Oxygen Flow Rate 2 Fraction of Inspired Oxygen 24 SaO2/FiO2 Ratio 383 Oxygen Delivery Method Room Air Oxygen Flow Rate 2 Narrative Exam Narrative: GEN: Alert, elderly male, pleasant, alert and oriented x 3, NAD HEENT:NC, Face symmetric CHEST: Respiratory excursions symmetric, improved breath sounds in the left lung, CTA on the right CV: Rate controlled, irregularly irregular, III-IV/ systolic murmur heard best in the RUSB, no R/G ABD: Soft, NT/ND, BT present in all 4 quadrants, no organomegaly or masses EXTR: warm, well perfused, no C/C/E SKIN: warm and dry, faint residual hives noted to the left forearm and posterior right leg, otherwise resolved NEURO: Alert and oriented x 3, nonfocal Objective Labs 10/16/22 05:17 10/16/22 05:17 Labs: Laboratory Results - last 24 hr 10/16/22 10/16/22 05:17 05:17 WBC 6.2 RBC 3.93 L Hgb 10.6 L Hct 31.4 L MCV 80.0 MCH 27.0 MCHC 33.8 RDW 17.0 H Plt Count 198 Neut % (Auto) 81.4 H Lymph % (Auto) 9.9 L Owen % (Auto) 5.4 Eos % (Auto) 3.1 Baso % (Auto) 0.2 Neut # (Auto) 5100 Lymph # (Auto) 600 L Owen # (Auto) 300 Eos # (Auto) 200 Baso # (Auto) 0 Sodium 133 L Potassium 3.6 Chloride 100 Carbon Dioxide 26 BUN 40 H Creatinine 1.30 H Estimated GFR 54 L BUN/Creatinine Ratio 30.8 H Glucose 106 Calcium 8.1 L [facility] Medical History (Updated 10/12/22 @ 18:42 by Tavo Carmen DO) Aortic stenosis Ectopic atrial tachycardia Essential hypertension Prediabetes Surgical History History of lumbar fusion Family History Mother No pertinent past medical history Father No pertinent past medical history Social History household members: spouse Smoking Status: Former smoker Tobacco: How many years used: 50 alcohol intake: current substance use type: does not use Discharge Plan Discharge Plan Patient Disposition: Home Health Service Provider Discharge Comment: You were diagnosed with pneumonia and atrial fibrillation. You have completed a full 7 day course of treatment for the pneumonia. You did develop a drug rash while here in the hospital. It is not clear if it was due to ceftriaxone (a cephalosporin) or azithromycin. It was most likely the ceftriaxone. Please add this to your allergy list at all of your physicians' offices and your pharmacy. A fib increases your risk for stroke and fast heart rates. You have been started on Eliquis (blood thinner) for stroke reduction and metoprolol for controlling the heart rate. You also have severe aortic stenosis (your aortic valve needs replaced). Please schedule an appointment w/Dr. Thanh BARNARD to further discuss valve replacement. If the hives return and are increasing, stop metoprolol, take a benadryl and call Dr. Law's office for further recommendations. Return to the ED: Worsening shortness of breath Fevers Inability to hold down food/fluids Black/tarry stool or vomit that looks like coffee grounds Bleeding that does not stop with direct pressure HH PT/OT-eval and treat; RN for med mgmt and monitoring Discharge orders & Medications Prescriptions: New gabapentin 300 mg Capsule 300 mg PO BID Qty: 60 0RF Eliquis 5 mg Tablet 5 mg PO BID Qty: 60 0RF guaifenesin [Mucus Relief ER] 600 mg Tablet Extended Release 12hr 1,200 mg PO BID Qty: 30 0RF metoprolol tartrate 25 mg Tablet 25 mg PO BID Qty: 60 0RF Continued metformin 500 mg Tablet 500 mg PO BID ibuprofen 200 mg Capsule 200 mg PO PRN PRN (Reason: Cramps) tramadol 50 mg Tablet 50 mg PO BID PRN (Reason: Pain (Scale Score 1-3)) acetaminophen 500 mg Tablet 500 mg PO Q6H PRN (Reason: Pain (Scale Score 1-3)) ferrous sulfate [iron] 325 mg (65 mg iron) Tablet 65 mg PO DAILY levothyroxine 150 mcg Tablet 150 mcg PO DAILY Rx Instructions: Take on tab po sun - sun, take half tab sundays aspirin 81 mg Tablet 81 mg PO DAILY lisinopril 5 mg Tablet 5 mg PO DAILY rosuvastatin 40 mg Tablet 40 mg PO DAILY hydrochlorothiazide 12.5 mg Tablet 12.5 mg PO DAILY Discontinued gabapentin 300 mg Tablet 600 mg PO BEDTIME PRN (Reason: Pain (Scale Score 1-3)) Follow up/Referrals: Vee Chun MD [Primary Care Provider] - Diet/Activity/Treatments Diet: Regular Activity: As tolerated Oxygen: N/A Visit Report/Discharge Packet Instructions: Atrial Fibrillation, Aortic Stenosis -- Adult, DI for Pneumonia -- Adult Stand Alone Forms: Patient Portal/API, Stroke Signs & Symptoms Discharge Data Primary Care Provider: Vee Chun Quality VTE Deep Vein Thrombosis/Pulmonary Embolism Present on Admission: No
--- NOTE | 2022-10-16 17:18 | PC.NURSE ---
Pt discharged home at 1645, escorted off floor in wheelchair, accompanied by spouse and hospital staff. IV removed, tele d/c'd, discharge teaching provided including follow up appointments, worsening symptoms and new medications. Questions answered and concerns addressed. Patient left the floor with all belongings.
[2022-10-17 14:22] LABS: Osmolality Urine 319 mOsmol/kg (.)
[2022-10-17 14:22] LABS: Osmolality, Serum 282 mOsmol/kg (280-301)
== END 2022-10-16 17:21 | disposition home health service (06) | DRG 871 ==
LOC: ED 11:19 → AC 14:33
PROVIDERS: Family Medicine; Admitting Provider Internal Medicine; Emergency Provider Emergency Medicine; PCP Internal Medicine; Referring Provider Emergency Medicine; Visit Provider Internal Medicine
DX: A41.9 Sepsis, unspecified organism (principal); G93.41 Metabolic encephalopathy; J18.9 Pneumonia, unspecified organism; J96.01 Acute respiratory failure with hypoxia; I5A Non-ischemic myocardial injury (non-traumatic); M62.82 Rhabdomyolysis; G89.29 Other chronic pain; R73.03 Prediabetes; R65.20 Severe sepsis without septic shock; I35.0 Nonrheumatic aortic (valve) stenosis; D69.6 Thrombocytopenia, unspecified; R21 Rash and other nonspecific skin eruption; M54.9 Dorsalgia, unspecified; T36.1X5A Adverse effect of cephalosporins and other beta-lactam antibiotics, initial encounter; T36.3X5A Adverse effect of macrolides, initial encounter; I48.91 Unspecified atrial fibrillation; D63.8 Anemia in other chronic diseases classified elsewhere; I10 Essential (primary) hypertension; E78.5 Hyperlipidemia, unspecified; E03.9 Hypothyroidism, unspecified; Z20.822 Contact with and (suspected) exposure to COVID-19; Z87.891 Personal history of nicotine dependence; R53.1 Weakness; E86.0 Dehydration
CPT/HCPCS: 36415; 36600; 71045; 71046; 71275; 80048; 80053; 81001; 81003; 81015; 82550; 82570; 82805; 83036; 83605; 83735; 83880; 83930; 83935; 84145; 84300; 84439; 84443; 84484; 85025; 85610; 85730; 86850; 86900; 86901; 87040; 87086; 87633; 93005; 93010; 93307; 94760; 96360; 96365; 96375; 97162; 97166; 99284; 99285; C9113; J0696; J1650; J1940; J1956; J2543; Q9967

== ENCOUNTER → 2023-05-15 13:49 | Outpatient (CLI) | payer MEDICARE, OTHER, SELFPAY ==
[2022-10-12 15:58] VITALS: BMI 27.2
--- NOTE | 2023-05-15 13:52 | DI.ECHO.S_ITS ---
[facility]---------+ [facility] +---------+ : : [address] : : : : [id number] : : : : Phone: [phone]+ Echocardiogram Report + + :Name: AGUSTIN TANG Study Date: 05/15/2023 Height: 71 in : :[facility] ReadingLocation: Weight: 204 lb : : Gender: Male BSA: 2.1 m2 : :: 1940 Age: 83 yrs BP: 127/81 mmHg: :Reason For Study: S/P TAVR : :Ordering Physician: YASMEEN, : :VALERIE Banda Performed By: Desi Pratt : :Referring: VALERIE LAW : + + Interpretation Summary The ejection fraction is estimated to be 60-65%. Diastolic function could not be accurately assessed due to atrial fibrillation. The right ventricle is normal in size and function. There is moderate biatrial enlargement. There is moderate mitral regurgitation. There is a well-seated, normal functioning bioprosthetic aortic valve with a mild paravalvular leak. There is mild to moderate tricuspid regurgitation. The right ventricular systolic pressure is estimated to be at least 28 mmHg based on an estimated right atrial pressure of 3 mm Hg. Compared to the prior study dated 10/13/2022, the aortic valve has now been replaced. Procedure: A two-dimensional transthoracic echocardiogram with color flow and Doppler was performed. The study quality was technically adequate. Comparison is made with the echocardiogram of 10/13/2022. The patient was in atrial fibrillation with heart rates between 62-78 bpm during the exam. Left Ventricle: The left ventricle is normal in size and wall thickness. The ejection fraction is estimated to be 60-65%. Diastolic function could not be accurately assessed due to atrial fibrillation. Right Ventricle: The right ventricle is normal in size and function. Atria: There is moderate biatrial enlargement. There is no Doppler evidence for an interatrial shunt. Mitral Valve: The mitral valve leaflets appear mildly thickened, but open well. There is moderate mitral regurgitation. The mitral regurgitant jet is eccentrically directed. Aortic Valve: There is a bioprosthetic aortic valve. There is a mild paravalvular leak. The peak aortic velocity is 2.5 m/sec. The aortic valve mean gradient is 15 mmHg. Tricuspid Valve: The tricuspid valve leaflets are thin and pliable. There is mild to moderate tricuspid regurgitation. The right ventricular systolic pressure is estimated to be at least 28 mmHg based on an estimated right atrial pressure of 3 mm Hg. Pulmonic Valve: The pulmonic valve is not well seen, but is grossly normal. There is mild pulmonic regurgitation. Great Vessels: The aortic root is not well visualized but is probably normal size. The dimensions of the ascending aorta are normal. The IVC is of normal diameter and collapses greater than 50% with a sniff. This suggests a low right atrial pressure of 3 mm Hg. Pericardium/ Pleura There is no pericardial effusion. There is no pleural effusion. MMode/2D Measurements & Calculations LVIDd: 6.1 cm LVOT diam: 2.0 cm LVIDs: 4.0 cm asc Aorta Diam: 3.1 cm FS: 34.6 % Ao Arch Diam (Prox Trans): 3.2 cm EPSS: 0.75 cm IVSd: 0.88 cm LVPWd: 0.91 cm LV jeff. diameter/BSA (cm/m^2): 2.9 LV sys. diameter/BSA (cm/m^2): 1.9 LA A2 area: 26.6 cm2 RA long axis: 7.2 cm LA A4 area: 30.9 cm2 RA area: 27.6 cm2 LA length (vol): 7.4 cm RA vol: 90.0 ml LA vol: 94.6 ml RA : 42.3 ml/m2 LA vol index: 44.5 ml/m2 IVC diam: 1.9 cm RVD1 (basal): 3.2 cm RVD2 (mid): 2.1 cm TAPSE: 2.0 cm Doppler Measurements & Calculations Ao V2 max: 247.9 cm/sec LVOT Max Enrique: 70.9 cm/sec Ao V2 mean: 176.5 cm/sec LV V1 max P.0 mmHg Ao max P.6 mmHg LV V1 VTI: 13.6 cm Ao mean P.9 mmHg JADE(I,D): 0.88 cm2 Ao V2 VTI: 48.7 cm JADE(V,D): 0.90 cm2 sev ratio: 0.28 JADE indexed to BSA (cm^2/m^2): 0.41 MV E max enrique: 105.0 cm/sec TR max enrique: 330.1 cm/sec MV A max enrique: 10.1 cm/sec TR max P.2 mmHg MV E/A: 10.4 PA V2 max: 102.3 cm/sec Med Peak E' Enrique: 6.8 cm/sec PA V2 mean: 70.1 cm/sec E/E' med: 15.4 PA mean P.2 mmHg Lat Peak E' Enrique: 9.6 cm/sec PA pr(Accel): 58.4 mmHg E/E' lat: 10.9 E/e' average: 13.2 MV dec time: 0.16 sec MR ERO: 0.21 cm2 MR PISA: 2.9 cm2 SV(LVOT): 43.0 ml MR flow rate: 102.2 cm3/sec MR PISA radius: 0.68 cm Reading Physician:04:27 PM
== END ==
PROVIDERS: PCP Internal Medicine; Referring Provider Internal Medicine Cardiovascular Disease; Visit Provider Internal Medicine Cardiovascular Disease
DX: Z95.2 Presence of prosthetic heart valve (principal); I08.1 Rheumatic disorders of both mitral and tricuspid valves
CPT/HCPCS: 93306

== ENCOUNTER → 2024-01-04 11:09 | Outpatient (CLI) | payer MEDICARE, OTHER, SELFPAY ==
[2022-10-12 15:58] VITALS: BMI 27.2
--- NOTE | 2024-01-04 11:11 | DI.CT.S_ITS ---
P a ROCEDURE: CT ANGIO CHEST ABDOMEN PELVIS INDICATIONS: S/P AORTIC ANEURYSM REPAIR TECHNIQUE: Precontrast 5 mm thick sections acquired from the lung apices to the iliac crests. After the administration of intravenous contrast, 2.5 mm thick sections again acquired from the lung apices to the iliac crests. Maximum intensity projection (MIP) oblique sagittal and coronal reformats were then acquired. For radiation dose reduction, the following was used: automated exposure control. COMPARISON: [facility], CT, CT ABDOMEN PELVIS W CON, 12/26/2021, 16:24. [facility], CT, CT CHEST WITHOUT CONTRAST, 10/02/2022, 10:42. [facility], CT, CT ANGIO AORTA RUNOFF, 07/13/2021, 12:17. FINDINGS: Image quality: Diagnostic. AORTA: Ascending aorta and transverse arch and descending thoracic aorta are normal in caliber. Remote repair of an abdominal aortic aneurysm with a bifurcated graft. The excluded aneurysm sac has increased in size since 2021. It previously measured 5.0 x 5.7 cm on image 43/2 of the 2021 study. It currently measures 6.5 x 6.5 cm on current image 213/5. There is no type 1 or type 2 endoleak identified. 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 CHEST: Lower Neck: No enlarged lymph nodes. Thyroid: No thyroid nodules which require sonographic evaluation. Axillae: No enlarged lymph nodes. Chest Wall: Unremarkable. Lungs and Pleura: No pneumothorax or pleural effusions. Advanced emphysematous change with biapical predominance. Development of a spiculated density in the left apex which measures 2.2 x 0.7 cm. Reference image 90 of series 6. Consider possible developing scar carcinoma versus atelectasis. Stable peripheral posterior basilar interstitial process, right lung base. Heart: Aortic valve prosthesis. Cardiomegaly. No pericardial effusion. Thoracic Vessels: Right main pulmonary artery measures 3.8 cm, suggesting likely pulmonary arterial hypertension. Mediastinum and Harleen: No enlarged lymph nodes. Esophagus: No wall thickening. No hiatal hernia. ABDOMEN: Liver: No solid mass. Gallbladder: No radiopaque gallstones or wall thickening. Biliary ducts: No biliary dilation. Pancreas: No ductal dilation. Spleen: Size is within normal limits. Adrenal Glands: Unchanged bilateral adrenal adenomas. Kidneys and Ureters: No hydronephrosis. No solid mass. No complex renal cystic lesion which requires follow up. Stomach and Bowel: Normal colonic caliber, without significant wall thickening. Sigmoid diverticulosis without evidence of acute diverticulitis. Peritoneum: No abnormal intraperitoneal fluid. No free air. Ventral Wall: No hernia. Abdominal Nodes: No retroperitoneal or mesenteric adenopathy by size criteria. Vessels: Inferior vena cava is normal in size. PELVIS: Pelvic Organs: Unremarkable. Bladder: Unremarkable. Pelvic Nodes: No enlarged lymph nodes. Miscellaneous: No inguinal hernias are seen. Bones: Lumbar degenerative change. Remote posterior decompression at L4-L5.. IMPRESSION: 1. Advanced emphysematous change. 2. Developing spiculated density in the extreme left lung apex, potentially representing scar carcinoma versus atelectasis. 3. 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 4. The excluded aortic aneurysm sac definitely grew over time. Currently, there is no type 1 or type 2 endoleak. The maximum diameter is now 6.5 cm. Comment: Recommend 3 month follow-up CT chest. If the spiculated density in the left apex does not resolve, or is not stable, at that point would recommend PET-CT. Comment: An Urgent Findings note was created in PACS to ensure notification of the referring clinician. Dictated by: Victor Manuel Rodríguez M.D. on 01/04/2024 at 15:12 Approved by: Victor Manuel Rodríguez M.D. on 01/04/2024 at 15:28
[2024-01-04 12:02] LABS: Estimated Glomerular Filt Rate 53 mL/min (>60)
== END ==
PROVIDERS: Radiology Neuroradiology; PCP Internal Medicine; Referring Provider Surgery Vascular Surgery; Visit Provider Surgery Vascular Surgery
DX: I72.3 Aneurysm of iliac artery (principal); I71.40 Abdominal aortic aneurysm, without rupture, unspecified; R91.8 Other nonspecific abnormal finding of lung field; I51.7 Cardiomegaly; K57.30 Diverticulosis of large intestine without perforation or abscess without bleeding; Z86.79 Personal history of other diseases of the circulatory system; Z98.890 Other specified postprocedural states; Z95.2 Presence of prosthetic heart valve
CPT/HCPCS: 36415; 71275; 74174; 82565; Q9967

== ENCOUNTER 2024-03-13 20:33 | Inpatient (IN) | payer MEDICARE, OTHER, SELFPAY ==
[2022-10-12 15:58] VITALS: BMI 27.2
[2024-03-13] VITALS (8 sets, daily range): BP systolic 118–138; BP diastolic 55–91; PULSE 89–111; RESP 14–31; TEMP 36.3; O2SAT 94–96; BMI 25.1
--- NOTE | 2024-03-13 20:44 | DI.RAD.S_ITS ---
PROCEDURE: XR CHEST 1V INDICATIONS: chest pain TECHNIQUE: One view of the chest was acquired. COMPARISON: [facility], CR, XR CHEST 1V, 10/13/2022, 12:33. FINDINGS: Surgical changes and devices: None. Lungs and pleura: Lungs are clear. No pleural effusions or pneumothorax. Mediastinum: Mediastinal contours appear normal. Heart size is normal. Bones and chest wall: No suspicious bony lesions. Overlying soft tissues appear unremarkable. IMPRESSION: No acute cardiopulmonary abnormalities or focal consolidation. Dictated by: Nolberto Yap M.D. on 03/13/2024 at 21:21 Approved by: Nolberto Yap M.D. on 03/13/2024 at 21:21
--- NOTE | 2024-03-13 20:58 | EKG_ITS ---
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
[2024-03-13 21:07] LABS: Add Manual Diff / Slide Review NO; Basophils Absolute Auto 100 /uL (0-100); Basophils Percent Auto 0.9 % (0-2); Eosinophils Absolute Auto 100 /uL (0-450); Eosinophils Percent Auto 0.7 % (2-4); Hematocrit 39.9 % (41-53); Lymphocytes Absolute Auto 1000 /uL (1100-4500); Lymphocytes Percent Auto 10.4 % (25-40); Mean Corpuscular HGB Conc 32.6 % (30-36); Mean Corpuscular Hemoglobin 28.1 PG (26-34); Mean Corpuscular Volume 86.1 fL (80-100); Monocytes Absolute Auto 600 /uL (0-900); Monocytes Percent Auto 5.9 % (3-14); Neutrophils Absolute Auto 7800 /uL (1500-7000); Neutrophils Percent Auto 82.1 % (50-75); Platelet Count 147 X10^3/uL (150-400); Red Blood Cell Count 4.63 X10^6/uL (4.5-5.9); Red Cell Distribution Width 19.7 % (11.6-14.8); White Blood Cell Count 9.5 X10^3/uL (4.5-11.0)
[2024-03-13 21:14] LABS: INR 1.2 (0.9-1.3); Prothrombin Time 13.9 SECONDS (9.4-12.5)
[2024-03-13 21:17] LABS: PTT Partial Thromboplastin Tim 33 SECONDS (25.1-36.5)
[2024-03-13 21:18] LABS: Alanine Aminotransferase 28 IU/L (<50); Albumin Globulin Ratio 1.3 (1.0-2.8); Alkaline Phosphatase 65 U/L (38-126); Aspartate Aminotransferase 78 IU/L (17-59); BUN Creatinine Ratio 16.8 (6-22); Bilirubin Total 1.6 mg/dL (0.2-1.3); Blood Urea Nitrogen 25 mg/dL (9-20); Carbon Dioxide 26 mmol/L (22-32); Chloride 99 mmol/L (98-107); Creatine Kinase 148 U/L (55-170); Estimated Glomerular Filt Rate 45 mL/min (>60); Globulin 3.9 g/dL (1.7-4.1); Glucose 130 mg/dL (80-110); Lipase 87 U/L (23-300); Sodium 136 mmol/L (137-145); Total Protein 8.9 g/dL (6.3-8.2)
[2024-03-13 21:20] LABS: HEMOLYSIS 86 (0-50)
[2024-03-13 21:30] LABS: NT-proBNP (BNP-Adult 18+) 3890 pg/mL (<450); Troponin I 0.018 ng/mL (0.01-0.034)
[2024-03-13] MEDS: ACETAMINOPHEN 325 MG TABLET 650 MG PO (21:38)
[2024-03-13] MEDS: ONDANSETRON 4 MG/2 ML INJ IV (22:44)
--- NOTE | 2024-03-13 22:57 | DI.CT.S_ITS ---
PROCEDURE: CT ABDOMEN PELVIS W CON INDICATIONS: abdominal pain TECHNIQUE: After the administration of intravenous contrast, axial sections acquired from the lung bases to the pubic symphysis. Coronal and sagittal reformats were performed. For radiation dose reduction, the following was used: automated exposure control, adjustment of mA and/or kV according to patient size. COMPARISON: [facility], CT, CT ANGIO CHEST ABDOMEN PELVIS, 01/04/2024, 12:39. [facility], CT, CT ABDOMEN PELVIS W CON, 12/26/2021, 16:24. FINDINGS: Image quality: Diagnostic. Lower Chest: Redemonstration of moderate pulmonary emphysematous changes. Right main pulmonary artery remains enlarged measuring 3.3 cm in diameter. This is not significantly changed. ABDOMEN: Liver: No solid mass. Gallbladder: No radiopaque gallstones or wall thickening. Biliary ducts: No biliary dilation. Pancreas: No ductal dilation. Spleen: Size is within normal limits. Adrenal Glands: Stable appearance of bilateral adrenal adenomas larger on the left. Kidneys and Ureters: No hydronephrosis. No solid mass. No complex renal cystic lesion which requires follow up. Stomach and Bowel: There is moderate gastric distension as well as numerous dilated loops of small bowel with differential air-fluid levels secondary to a loop of likely car serrated ventral hernia. The segment of small bowel distal to the hernia is decompressed as is the colon. Colonic diverticulosis without acute diverticulitis. Proximal small bowel loops measure up to 4.2 cm in diameter. No pneumatosis. No portal venous gas. Peritoneum: No abnormal intraperitoneal fluid. No free air. Ventral Wall: Fat and small bowel containing ventral abdominal hernia with moderate associated inflammatory changes of the short segment of herniated small bowel. Distal small bowel decompressed. Proximal small bowel is dilated. This is consistent with transition point of obstruction. Neck of this defect measures approximately 1.3 cm in diameter. There is also reactive fluid within the hernia sac. Mild surrounding subcutaneous soft tissue edema and overlying skin thickening. Abdominal Nodes: No retroperitoneal or mesenteric adenopathy by size criteria. Vessels: Redemonstration of abdominal aortic aneurysm status post bifurcated graft repair. The excluded aneurysm sac is stable to slightly increased in size now measuring approximately 6.7 x 6.1 cm, previously 6.5 x 6.5 cm. Measured on image 85/series 2. No evidence for periaortic inflammation or hematomas. The endo graft appear to be opacified and patent. PELVIS: Pelvic Organs: Unremarkable. Bladder: No bladder wall thickening, accounting for underdistention. Pelvic Nodes: No enlarged lymph nodes. Miscellaneous: No inguinal hernias are seen. Bones: No aggressive osseous abnormality. Stable postsurgical changes of spinal fusion of L4 and L5. Stable alignment with mild anterolisthesis of L4 on L5. No acute compression fractures. Multilevel spondylosis of the imaged spine. IMPRESSION: Small bowel and containing ventral abdominal hernia with short segment of incarcerated and likely strangulated small bowel with associated small bowel obstruction proximally as well as moderate gastric distension. The small bowel distal to the hernia is decompressed as is the colon. Recommend surgical consultation. Colonic diverticulosis without acute diverticulitis. Redemonstration of abdominal aortic aneurysm status post bifurcated graft repair. No evidence for endoleak. Overall size appears stable. Recommend continued clinical and imaging surveillance. Other nonacute/chronic findings as above. Findings were discussed with Dr. Astudillo at 11:55 p.m. Dictated by: Nolberto Yap M.D. on 03/13/2024 at 23:35 Approved by: Nolberto Yap M.D. on 03/14/2024 at 0:14
--- NOTE | 2024-03-13 23:10 | PC.NURSE ---
Taken to imaging via wheel chair with tech
[2024-03-14] VITALS (68 sets, daily range): BP systolic 81–160; BP diastolic 49–97; PULSE 73–143; RESP 14–37; TEMP 36.5–38.7; O2SAT 84–98; BMI 25.1
[2024-03-14] MEDS: MORPHINE 4 MG/ML INJ IV (00:18)
[2024-03-14] MEDS: ONDANSETRON 4 MG/2 ML INJ IV (00:18)
--- NOTE | 2024-03-14 00:51 | ED_ITS ---
HPI - Abdominal Pain General Chief Complaint: Abdominal Pain Stated Complaint: abd pain t-1 Time Seen by Provider: 03/13/24 22:57 Source: patient Mode of arrival: Wheelchair History of Present Illness HPI narrative: 84-year-old male with history of atrial fibrillation for which he takes Eliquis chronic anticoagulation, has history of November 2023 aortic graft surgery [facility], recent treatment for urinary tract infection Klebsiella that got better, now on day 3 of a new course of antibiotic Bactrim for suspected urine infection recurrence. He complains of lower abdominal discomfort for the last couple of days. Does not feel like he is passing gas, last bowel movement Sunday morning. Had single episode of nonbloody emesis, still having abdominal discomfort. No fevers or chills. No frequency of urination. He has chronic back pain awaiting possible consultation with Dr. Medina for spine surgery in the future, no change in his chronic back pain. No fall injury or new activities Related Data Home Medications Medication Instructions Recorded Confirmed acetaminophen 500 mg tablet 500 mg PO Q6H PRN Pain (Scale 08/22/22 10/12/22 Score 1-3) aspirin 81 mg tablet 81 mg PO DAILY 08/22/22 10/12/22 ferrous sulfate 325 mg (65 mg 65 mg PO DAILY 08/22/22 10/12/22 iron) tablet (iron) hydrochlorothiazide 12.5 mg tablet 12.5 mg PO DAILY 08/22/22 10/12/22 ibuprofen 200 mg capsule 200 mg PO PRN PRN Cramps 08/22/22 02/06/24 levothyroxine 150 mcg tablet 150 mcg PO DAILY 08/22/22 02/06/24 rosuvastatin 40 mg tablet 40 mg PO DAILY 08/22/22 02/06/24 tramadol 50 mg tablet 50 mg PO BID PRN Pain (Scale Score 08/22/22 02/06/24 1-3) amlodipine 5 mg tablet 5 mg PO QDAY 02/06/24 02/06/24 Previous Rx's Medication Instructions Recorded apixaban 5 mg tablet (Eliquis) 5 mg PO BID #60 tabs 10/16/22 gabapentin 300 mg capsule 300 mg PO BID #60 caps 10/16/22 guaifenesin 600 mg tablet, 1,200 mg (2 x 600 mg) PO BID #30 06/05/23 extended release 12 hr (Mucus tabs Relief ER) metoprolol tartrate 25 mg tablet 25 mg PO BID #60 tabs 10/16/22 Allergies Allergy/AdvReac Type Severity Reaction Status Date / Time azithromycin Allergy Intermediate Hives Verified 02/06/24 16:39 ceftriaxone Allergy Intermediate Hives Verified 02/06/24 16:39 ciprofloxacin [From Cipro] AdvReac Verified 02/06/24 16:39 Review of Systems Review of Systems Narrative: See HPI Patient History Medical History Asthma Pulmonary nodule Emphysema lung Ectopic atrial tachycardia Aortic stenosis Essential hypertension Prediabetes Surgical History History of lumbar fusion Family History Mother No pertinent past medical history Father No pertinent past medical history Social History household members: spouse Smoking Status: Former smoker Tobacco: How many years used: 50 alcohol intake: current substance use type: does not use Smoking Status: Former smoker alcohol intake frequency: holidays/special occasions only Substance Use Type: does not use Exam Narrative Exam Narrative: GENERAL: Well-developed patient, in mild distress. HEAD: Atraumatic. Normocephalic. EYES: Pupils equal round and reactive. Extraocular motions intact. No scleral icterus. No injection or drainage. ENT: Nose without bleeding, purulent drainage. Throat without erythema, tonsillar hypertrophy or exudate. Airway patent. NECK: Trachea midline. Non tender CARDIOVASCULAR: Regular rate and rhythm without murmurs, gallops, or rubs. RESPIRATORY: Clear to auscultation. Breath sounds equal bilaterally. No wheezes, rales, or rhonchi. GASTROINTESTINAL: Nondistended, no right lower quadrant tenderness, no left lower quadrant tenderness, no suprapubic discomfort, no suprapubic mass, umbilical hernia present, could not reduce, not terribly tender. Hypoactive bowel tones without rushes or tinkles. EXTREMITIES: No edema or joint tenderness. BACK: Nontender without deformity or crepitance. No flank tenderness. NEURO: AOx3. Motor functions grossly nonfocal SKIN: No rash or erythema of visible areas Initial Vital Signs Initial Vital Signs: Vital Signs Temperature 97.4 F L 03/13/24 20:38 Respiratory Rate 18 03/13/24 20:38 Blood Pressure 122/55 L 03/13/24 20:38 Pulse Oximetry 94 03/13/24 20:38 Oxygen Delivery Method Room Air 03/13/24 20:38 Course Orders Ordered: ED Orders 03/13/24 22:55 Trop I [Troponin I] Stat 03/13/24 22:57 CT abdomen pelvis w con Stat 03/14/24 00:58 Urinalysis and Microscopic Stat 03/14/24 01:25 Lactate (Lactic Acid) Stat Sodium Chloride (Normal Saline 0.9%) 1,000 mls @ 100 mls/hr IV CONT [facility] Last Admin: 03/14/24 06:03 Dose: 100 mls/hr Documented By: ANANTH Trimethoprim/Sulfamethoxazole (160 mg/ Dextrose) 260 mls @ 173.333 mls/hr IV Q6H [facility] Last Admin: 03/14/24 05:17 Dose: 173.333 mls/hr Documented By: ANANTH Metoprolol Tartrate (Metoprolol Tartrate 5 Mg/5 Ml Inj) 5 mg IV Q2HR PRN PRN Reason: for HR>110 Morphine Sulfate (Morphine 4 Mg/Ml Inj) 2 mg IV Q2HR PRN PRN Reason: pain Last Admin: 03/14/24 03:52 Dose: 2 mg Documented By: ANANTH Naloxone HCl (Naloxone 0.4 Mg/Ml Vial) 0.2 mg IV Q2MIN PRN PRN Reason: Opiate Reversal Ondansetron HCl (Ondansetron 4 Mg/2 Ml Inj) 4 mg IV Q4HR PRN PRN Reason: Nausea And Vomiting Prochlorperazine (Prochlorperazine 10 Mg/2 Ml Vial) 5 mg IV Q6HR PRN PRN Reason: Nausea Sodium Chloride (Sodium Chloride 0.9% Flush) 10 ml IV BID [facility] Discontinued Medications Acetaminophen (Acetaminophen 325 Mg Tablet) 650 mg PO NOW ONE Stop: 03/13/24 21:35 Last Admin: 03/13/24 21:38 Dose: 650 mg Documented By: DANIEL Trimethoprim/Sulfamethoxazole (160 mg/ Dextrose) 260 mls @ 173.333 mls/hr IV Q6H [facility] Last Admin: 03/14/24 05:36 Dose: Not Given Documented By: ANANTH Lidocaine HCl (Lidocaine 2% (Glydo) 6 Ml Gel) 6 ml TOP NOW ONE Stop: 03/14/24 02:12 Last Admin: 03/14/24 02:14 Dose: 6 ml Documented By: IFEANYI Morphine Sulfate (Morphine 4 Mg/Ml Inj) 4 mg IV NOW ONE Stop: 03/14/24 00:11 Last Admin: 03/14/24 00:18 Dose: 4 mg Documented By: YAS Ondansetron HCl (Ondansetron 4 Mg/2 Ml Inj) 4 mg IV NOW ONE Stop: 03/13/24 22:42 Last Admin: 03/13/24 22:44 Dose: 4 mg Documented By: DANIEL Ondansetron HCl (Ondansetron 4 Mg/2 Ml Inj) 4 mg IV NOW ONE Stop: 03/14/24 00:11 Last Admin: 03/14/24 00:18 Dose: 4 mg Documented By: YAS Vital Signs Vital signs: Vital Signs - 8 hr 03/14/24 00:00 03/14/24 00:30 03/14/24 01:00 Pulse Rate 99 H 90 83 Respiratory Rate 29 H 18 Blood Pressure 137/65 Pulse Oximetry 97 96 97 Oxygen Delivery Method Room Air Nasal Cannula Nasal Cannula Oxygen Flow Rate 2 2 03/14/24 01:18 03/14/24 01:18 03/14/24 01:30 Pulse Rate 83 73 Respiratory Rate Blood Pressure 137/65 Pulse Oximetry 97 97 Oxygen Delivery Method Oxygen Flow Rate 03/14/24 01:30 03/14/24 02:00 03/14/24 02:01 Pulse Rate 91 H 80 Respiratory Rate Blood Pressure 145/70 H Pulse Oximetry 95 95 Oxygen Delivery Method Nasal Cannula Oxygen Flow Rate 2 03/14/24 02:01 Pulse Rate Respiratory Rate Blood Pressure 126/60 Pulse Oximetry Oxygen Delivery Method Oxygen Flow Rate MDM - Abdominal Pain Lab Data Attestation: I reviewed the patient's lab results. Lab results narrative: White blood cell count 9500, hemoglobin 13, platelets [id number]. Basic metabolic panel shows creatinine 1.49 with BUN 25, glucose 130, serum CO2 26, sodium 136, potassium 5.0. T bili 1.6 noted, AST 78 slight elevation, ALT normal, alkaline phosphatase normal. Troponin 0.018. BNP 3890 elevated 03/13/24 20:55 03/13/24 20:55 Labs: Lab Results 03/13/24 03/14/24 03/14/24 Range/Units 20:55 00:10 01:25 WBC 9.5 (4.5-11.0) X10^3/uL RBC 4.63 (4.5-5.9) X10^6/uL Hgb 13.0 L (13.5-17.5) g/dL Hct 39.9 L (41-53) % MCV 86.1 (80-100) fL MCH 28.1 (26-34) PG MCHC 32.6 (30-36) % RDW 19.7 H (11.6-14.8) % Plt Count 147 L (150-400) X10^3/uL Neut % (Auto) 82.1 H (50-75) % Lymph % (Auto) 10.4 L (25-40) % [place] % (Auto) 5.9 (3-14) % Eos % (Auto) 0.7 L (2-4) % Baso % (Auto) 0.9 (0-2) % Neut # (Auto) 7800 H (3734-6323) /uL Lymph # (Auto) 1000 L (6673-3994) /uL [place] # (Auto) 600 (0-900) /uL Eos # (Auto) 100 (0-450) /uL Baso # (Auto) 100 (0-100) /uL PT 13.9 H (9.4-12.5) SECONDS INR 1.2 (0.9-1.3) APTT 33 (25.1-36.5) SECONDS Sodium 136 L (137-145) mmol/L Potassium 5.0 (3.4-5.1) mmol/L Chloride 99 (98-107) mmol/L Carbon Dioxide 26 (22-32) mmol/L BUN 25 H (9-20) mg/dL Creatinine 1.49 H (0.66-1.25) mg/dL Estimated GFR 45 L (>60) mL/min BUN/Creatinine Ratio 16.8 (6-22) Glucose 130 H (80-110) mg/dL Lactate Cancelled 2.4 H Calcium 10.0 (8.4-10.2) mg/dL Magnesium 2.0 (1.6-2.3) mg/dL Total Bilirubin 1.6 H (0.2-1.3) mg/dL AST 78 H (17-59) IU/L ALT 28 (<50) IU/L Alkaline Phosphatase 65 (38-126) U/L Total Creatine Kinase 148 (55-170) U/L Troponin I 0.018 < 0.012 (0.01-0.034) ng/mL NT-Pro-B Natriuret Pep 3890 H (<450) pg/mL Total Protein 8.9 H (6.3-8.2) g/dL Albumin 5.0 (3.5-5.0) g/dL Globulin 3.9 (1.7-4.1) g/dL Albumin/Globulin Ratio 1.3 (1.0-2.8) Lipase 87 (23-300) U/L Imaging Data CT scan - abdomen/pelvis: Radiologist's Impression: [address] [address] [address] Scan Report Signed Patient: Alonso Hackett MR#: [id number] : 1940 Acct:[id number] Age/Sex: 84 / M Date of Service: 03/13/24 Loc: ED Accession Number: [id number] Procedure: CT abdomen pelvis w con Ordering Provider: John Astudillo MD PROCEDURE: CT ABDOMEN PELVIS W CON INDICATIONS: abdominal pain TECHNIQUE: After the administration of intravenous contrast, axial sections acquired from the lung bases to the pubic symphysis. Coronal and sagittal reformats were performed. For radiation dose reduction, the following was used: automated exposure control, adjustment of mA and/or kV according to patient size. COMPARISON: [facility], CT, CT ANGIO CHEST ABDOMEN PELVIS, 01/04/2024, 12:39. [facility], CT, CT ABDOMEN PELVIS W CON, 12/26/2021, 16:24. FINDINGS: Image quality: Diagnostic. Lower Chest: Redemonstration of moderate pulmonary emphysematous changes. Right main pulmonary artery remains enlarged measuring 3.3 cm in diameter. This is not significantly changed. ABDOMEN: Liver: No solid mass. Gallbladder: No radiopaque gallstones or wall thickening. Biliary ducts: No biliary dilation. Pancreas: No ductal dilation. Spleen: Size is within normal limits. Adrenal Glands: Stable appearance of bilateral adrenal adenomas larger on the left. Kidneys and Ureters: No hydronephrosis. No solid mass. No complex renal cystic lesion which requires follow up. Stomach and Bowel: There is moderate gastric distension as well as numerous dilated loops of small bowel with differential air-fluid levels secondary to a loop of likely car serrated ventral hernia. The segment of small bowel distal to the hernia is decompressed as is the colon. Colonic diverticulosis without acute diverticulitis. Proximal small bowel loops measure up to 4.2 cm in diameter. No pneumatosis. No portal venous gas. Peritoneum: No abnormal intraperitoneal fluid. No free air. Ventral Wall: Fat and small bowel containing ventral abdominal hernia with moderate associated inflammatory changes of the short segment of herniated small bowel. Distal small bowel decompressed. Proximal small bowel is dilated. This is consistent with transition point of obstruction. Neck of this defect measures approximately 1.3 cm in diameter. There is also reactive fluid within the hernia sac. Mild surrounding subcutaneous soft tissue edema and overlying skin thickening. Abdominal Nodes: No retroperitoneal or mesenteric adenopathy by size criteria. Vessels: Redemonstration of abdominal aortic aneurysm status post bifurcated graft repair. The excluded aneurysm sac is stable to slightly increased in size now measuring approximately 6.7 x 6.1 cm, previously 6.5 x 6.5 cm. Measured on image 85/series 2. No evidence for periaortic inflammation or hematomas. The endo graft appear to be opacified and patent. PELVIS: Pelvic Organs: Unremarkable. Bladder: No bladder wall thickening, accounting for underdistention. Pelvic Nodes: No enlarged lymph nodes. Miscellaneous: No inguinal hernias are seen. Bones: No aggressive osseous abnormality. Stable postsurgical changes of spinal fusion of L4 and L5. Stable alignment with mild anterolisthesis of L4 on L5. No acute compression fractures. Multilevel spondylosis of the imaged spine. IMPRESSION: Small bowel and containing ventral abdominal hernia with short segment of incarcerated and likely strangulated small bowel with associated small bowel obstruction proximally as well as moderate gastric distension. The small bowel distal to the hernia is decompressed as is the colon. Recommend surgical consultation. Colonic diverticulosis without acute diverticulitis. Redemonstration of abdominal aortic aneurysm status post bifurcated graft repair. No evidence for endoleak. Overall size appears stable. Recommend continued clinical and imaging surveillance. Other nonacute/chronic findings as above. Findings were discussed with Dr. Astudillo at 11:55 p.m. Dictated by: Nolberto Yap M.D. on 03/13/2024 at 23:35 Approved by: Nolberto Yap M.D. on 03/14/2024 at 0:14 Chest x-ray: Radiologist's Impression: [address] [address] XRay Report Signed Patient: Alonso Hackett MR#: [id number] : 1940 Acct:[id number] Age/Sex: 84 / M Date of Service: 03/13/24 Loc: ED Accession Number: [id number] Procedure: XR chest 1V Ordering Provider: John Astudillo MD PROCEDURE: XR CHEST 1V INDICATIONS: chest pain TECHNIQUE: One view of the chest was acquired. COMPARISON: [facility], , XR CHEST 1V, 10/13/2022, 12:33. FINDINGS: Surgical changes and devices: None. Lungs and pleura: Lungs are clear. No pleural effusions or pneumothorax. Mediastinum: Mediastinal contours appear normal. Heart size is normal. Bones and chest wall: No suspicious bony lesions. Overlying soft tissues appear unremarkable. IMPRESSION: No acute cardiopulmonary abnormalities or focal consolidation. Dictated by: Nolberto Yap M.D. on 03/13/2024 at 21:21 Approved by: Nolberto Yap M.D. on 03/13/2024 at 21:21 ECG Data Attestation: I personally reviewed and interpreted this ECG as follows: Interpretation: Atrial fibrillation with ventricular rate 81, no obvious ST segment elevation or depression changes. Flat T-waves lead 3 noted. QRS 100, QTC 432. MDM Narrative Medical decision making narrative: 84-year-old male with or abdominal discomfort, day 3 of new course of antibiotic sulfa for urinary tract infection, after 10 day course of sulfa antibiotic for sensitive Klebsiella species, history of atrial fibrillation on Eliquis, afebrile, sirs screen negative, has umbilical hernia that I can not reduce but does not seem terribly tender, nondistended. He does not seem to have a palpable bladder fundus. Labs pending. White blood cell count normal, mild renal insufficiency noted. BNP elevated. Chest x-ray negative. CT abdomen and pelvis imaging ordered. EKG shows atrial fibrillation, patient has known AFib. Troponin negative. CT abdomen and pelvis. Impressions: ?Small bowel containing ventral abdominal hernia with short segment of incarcerated unlikely strangulated small bowel with associated small bowel obstruction proximally as well as moderate gastric distention. The small bowel distal to the hernias decompressed as this of the colon. Recommend surgical consultation. Colonic diverticulosis without acute diverticulitis. Redemonstration of abdominal aortic aneurysm status post bifurcated graft repair. No evidence for endoleak. Overall size appears stable. Recommend continue clinical and imaging surveillance. Other nonacute chronic findings.. See radiology report [id number], case discussed with surgery Dr. Tijerina, he will consult. We will consult hospitalist [id number], case discussed with hospitalist Dr. Farrell, accepts patient for admission to observation Discussed with pharmacy, IV trimethoprim available here at 160 mg strength, dose initiated, as patient has allergies to ceftriaxone and Cipro, and is taking oral Bactrim medication, use parenteral formulation while NPO, pending resolution of bowel obstruction Discharge Plan Departure Patient Disposition: Admitted as Observation Clinical Impression: Abdominal pain, Bowel obstruction, Incarcerated ventral hernia, Urinary tract infection, Chronic anticoagulation Admit Date/Time: 03/14/24 02:54 Admit Provider: Jae Edward
[2024-03-14 00:54] LABS: Troponin I < 0.012 ng/mL (0.01-0.034)
--- NOTE | 2024-03-14 01:33 | PC.NURSE ---
Lab draw from existing IV
[2024-03-14 01:45] LABS: Lactate (Lactic Acid) 2.4 mmol/L (0.7-2.1)
[2024-03-14] MEDS: LIDOCAINE 2% (GLYDO) 6 ML GEL TOP (02:14)
--- NOTE | 2024-03-14 02:57 | PC.NURSE ---
Pt with large projectile vomiting s/o NG tube placement. Pt cleaned and placed back in ED stretcher.
[2024-03-14 03:06] LABS: Reflexed Lactate in 2 Hours Y
--- NOTE | 2024-03-14 03:41 | DI.RAD.S_ITS ---
PROCEDURE: XR CHEST 1V INDICATIONS: NG tube placement TECHNIQUE: One view of the chest was acquired. COMPARISON: [facility], CR, XR CHEST 1V, 03/13/2024, 20:54. [facility], CR, XR CHEST 1V, 10/13/2022, 12:33. FINDINGS: Surgical changes and devices: Gastric tube side port projects over the GE junction. Lungs and pleura: Streaky bibasilar opacities. Emphysema. Mediastinum: Mediastinal contours appear normal. Heart size is normal. Bones and chest wall: No suspicious bony lesions. Overlying soft tissues appear unremarkable. IMPRESSION: Gastric tube side port projects over the GE junction. Recommend 5 centimeter advancement. Hazy bibasilar opacities, right greater than left. Differential includes atelectasis, infection or aspiration. Agree with preliminary report. Dictated by: Júnior Soto M.D. on 03/14/2024 at 8:19 Approved by: Júnior Soto M.D. on 03/14/2024 at 8:22
[2024-03-14] MEDS: MORPHINE 4 MG/ML INJ 2 MG IV ×3 (03:52→22:24)
--- NOTE | 2024-03-14 04:02 | PM.HP.1 ---
History of Present Illness History of Present Illness Date Patient Seen: 03/14/24 Chief complaint: abd pain t-1 Narrative: 84 y/o with PMH of CAD, PAF, asthma, HTN, HLD, hypothyroisidm,s/p AAA repair, s/p TEAVR, recent endovascular aortic graft repair at , who presented with abdominal pain while on treatment with Bactrim for Klebsiella UTI. Workup showing incarcerated ventral hernia. After consultation with surgery, he had NGT for decompression, IV abx for UTI and he was placed in observation, NPO and off Eliquis. [facility] Medical History Asthma Pulmonary nodule Emphysema lung Ectopic atrial tachycardia Aortic stenosis Essential hypertension Prediabetes Surgical History History of lumbar fusion Family History Mother No pertinent past medical history Father No pertinent past medical history Social History household members: spouse Smoking Status: Former smoker Tobacco: How many years used: 50 alcohol intake: current substance use type: does not use Meds Home Medications and Allergies Home Medications Medication Instructions Recorded Confirmed Type acetaminophen 500 mg tablet 500 mg PO Q6H PRN Pain (Scale 08/22/22 10/12/22 History Score 1-3) aspirin 81 mg tablet 81 mg PO DAILY 08/22/22 10/12/22 History ferrous sulfate 325 mg (65 mg 65 mg PO DAILY 08/22/22 10/12/22 History iron) tablet (iron) hydrochlorothiazide 12.5 mg tablet 12.5 mg PO DAILY 08/22/22 10/12/22 History ibuprofen 200 mg capsule 200 mg PO PRN PRN Cramps 08/22/22 02/06/24 History levothyroxine 150 mcg tablet 150 mcg PO DAILY 08/22/22 02/06/24 History rosuvastatin 40 mg tablet 40 mg PO DAILY 08/22/22 02/06/24 History tramadol 50 mg tablet 50 mg PO BID PRN Pain (Scale Score 08/22/22 02/06/24 History 1-3) apixaban 5 mg tablet (Eliquis) 5 mg PO BID #60 tabs 10/16/22 02/06/24 Rx gabapentin 300 mg capsule 300 mg PO BID #60 caps 10/16/22 Rx guaifenesin 600 mg tablet, 1,200 mg (2 x 600 mg) PO BID #30 10/16/22 Rx extended release 12 hr (Mucus tabs Relief ER) metoprolol tartrate 25 mg tablet 25 mg PO BID #60 tabs 10/16/22 02/06/24 Rx amlodipine 5 mg tablet 5 mg PO QDAY 02/06/24 02/06/24 History Allergies Allergy/AdvReac Type Severity Reaction Status Date / Time azithromycin Allergy Intermediate Hives Verified 02/06/24 16:39 ceftriaxone Allergy Intermediate Hives Verified 02/06/24 16:39 ciprofloxacin [From Cipro] AdvReac Verified 02/06/24 16:39 Review of Systems Gastrointestinal Comments: abdominal pain Exam Vital Signs (past 8 hours): - 03/13/24 20:38 03/13/24 20:59 03/13/24 22:38 Temperature 97.4 F L Pulse Rate 89 111 H Respiratory Rate 18 18 Blood Pressure 122/55 L 138/68 Pulse Oximetry 94 Oxygen Delivery Method Room Air Oxygen Flow Rate 03/13/24 22:52 03/13/24 22:53 03/13/24 22:53 Temperature Pulse Rate 94 H 96 H Respiratory Rate 16 16 Blood Pressure 127/91 H Pulse Oximetry Oxygen Delivery Method Oxygen Flow Rate 03/13/24 23:00 03/13/24 23:17 03/13/24 23:17 Temperature Pulse Rate 94 H 90 Respiratory Rate 16 14 Blood Pressure 127/60 Pulse Oximetry 95 96 Oxygen Delivery Method Oxygen Flow Rate 03/13/24 23:30 03/13/24 23:30 03/14/24 00:00 Temperature Pulse Rate 103 H 99 H Respiratory Rate 31 H 29 H Blood Pressure 118/70 Pulse Oximetry 97 Oxygen Delivery Method Room Air Oxygen Flow Rate 03/14/24 00:30 03/14/24 01:00 03/14/24 01:18 Temperature Pulse Rate 90 83 Respiratory Rate 18 Blood Pressure 137/65 137/65 Pulse Oximetry 96 97 Oxygen Delivery Method Nasal Cannula Nasal Cannula Oxygen Flow Rate 2 2 03/14/24 01:18 03/14/24 01:30 03/14/24 01:30 Temperature Pulse Rate 83 73 Respiratory Rate Blood Pressure 145/70 H Pulse Oximetry 97 97 Oxygen Delivery Method Oxygen Flow Rate 03/14/24 02:00 03/14/24 02:01 03/14/24 02:01 Temperature Pulse Rate 91 H 80 Respiratory Rate Blood Pressure 126/60 Pulse Oximetry 95 95 Oxygen Delivery Method Nasal Cannula Oxygen Flow Rate 2 Oxygen Delivery Method Nasal Cannula Oxygen Flow Rate 2 Narrative Exam Narrative: in no distress Objective ECG Impression: A-fib 80, w/o ischemic changes Labs 03/13/24 20:55 03/13/24 20:55 Labs: Laboratory Results - last 24 hr 03/13/24 03/14/24 03/14/24 20:55 00:10 01:25 WBC 9.5 RBC 4.63 Hgb 13.0 L Hct 39.9 L MCV 86.1 MCH 28.1 MCHC 32.6 RDW 19.7 H Plt Count 147 L Neut % (Auto) 82.1 H Lymph % (Auto) 10.4 L [place] % (Auto) 5.9 Eos % (Auto) 0.7 L Baso % (Auto) 0.9 Neut # (Auto) 7800 H Lymph # (Auto) 1000 L [place] # (Auto) 600 Eos # (Auto) 100 Baso # (Auto) 100 PT 13.9 H INR 1.2 APTT 33 Sodium 136 L Potassium 5.0 Chloride 99 Carbon Dioxide 26 BUN 25 H Creatinine 1.49 H Estimated GFR 45 L BUN/Creatinine Ratio 16.8 Glucose 130 H Lactate Cancelled 2.4 H Calcium 10.0 Magnesium 2.0 Total Bilirubin 1.6 H AST 78 H ALT 28 Alkaline Phosphatase 65 Total Creatine Kinase 148 Troponin I 0.018 < 0.012 NT-Pro-B Natriuret Pep 3890 H Total Protein 8.9 H Albumin 5.0 Globulin 3.9 Albumin/Globulin Ratio 1.3 Lipase 87 Assessment & Plan Assessment and plan (1) Incarcerated ventral hernia: Status: Acute (2) Bowel obstruction: Status: Acute (3) Urinary tract infection: Status: Acute (4) Atrial fibrillation: Status: Acute (5) Chronic anticoagulation: Status: Acute (6) Asthma: Qualifiers: Asthma complication type: unspecified Asthma persistence: intermittent Asthma severity: mild Qualified Code(s): J45.20 - Mild intermittent asthma, uncomplicated Status: Acute (7) Hypothyroidism: Status: Acute (8) HLD (hyperlipidemia): Status: Acute Assessment & Plan narrative: Ventral Hernia / Bowel Obstruction - incarcerated - NGT for decompression, NPO, IVFs, antiemetics, pain management - surgical consult UTI - Bactrim IV A-FIB / Anticoagulated - last Eliquis on 03/13 Hx of , s/p AAA graft repair, HTN, CAD - s/p transendovascular AVR TEAVR - follows with cardiology - ASA, statin, metoprolol, amlodipine and ELIQUIS on hold - telemetry monitoring, IV BB prn for BP / rate control Time-Based Coding :: [TOTAL MINUTES] spent with patient and on the chart (including review of chart, obtaining history, exam, reviewing outside data, placing orders, documenting exam and treatment plan, and counseling patient) on [DATE].
[2024-03-14 04:19] LABS: Lactate 2HR (Lactic Acid Rflx) 2.1 mmol/L (0.7-2.1)
[2024-03-14] MEDS: DEXTROSE 5% IV (05:17)
[2024-03-14] MEDS: WATER IV (05:17)
[2024-03-14] MEDS: SULFA IV (05:17)
[2024-03-14] MEDS: TRIMETH IV (05:17)
--- NOTE | 2024-03-14 05:58 | PM.CN ---
History of Present Illness Consult details Date Patient Seen: 03/14/24 Time Patient Seen: 05:58 Chief complaint: abd pain t-1 Narrative: 84M PMH on chronic anticoagualtion with eliquis for afib, HTN, AAA sp EVAR admitted with SBO secondary to incarcerated umbilical hernia. Complaint of lower abdominal pain, nausea and emesis. NGT placed with large volume bilious output. CT A/P demonstrates umbilical hernia with incarcerated perhaps strangulated small bowel. Meds Home Medications and Allergies Home Medications Medication Instructions Recorded Confirmed Type acetaminophen 500 mg tablet 500 mg PO Q6H PRN Pain (Scale 08/22/22 10/12/22 History Score 1-3) aspirin 81 mg tablet 81 mg PO DAILY 08/22/22 10/12/22 History ferrous sulfate 325 mg (65 mg 65 mg PO DAILY 08/22/22 10/12/22 History iron) tablet (iron) hydrochlorothiazide 12.5 mg tablet 12.5 mg PO DAILY 08/22/22 10/12/22 History ibuprofen 200 mg capsule 200 mg PO PRN PRN Cramps 08/22/22 02/06/24 History levothyroxine 150 mcg tablet 150 mcg PO DAILY 08/22/22 02/06/24 History rosuvastatin 40 mg tablet 40 mg PO DAILY 08/22/22 02/06/24 History tramadol 50 mg tablet 50 mg PO BID PRN Pain (Scale Score 08/22/22 02/06/24 History 1-3) apixaban 5 mg tablet (Eliquis) 5 mg PO BID #60 tabs 10/16/22 02/06/24 Rx gabapentin 300 mg capsule 300 mg PO BID #60 caps 10/16/22 Rx guaifenesin 600 mg tablet, 1,200 mg (2 x 600 mg) PO BID #30 10/16/22 Rx extended release 12 hr (Mucus tabs Relief ER) metoprolol tartrate 25 mg tablet 25 mg PO BID #60 tabs 10/16/22 02/06/24 Rx amlodipine 5 mg tablet 5 mg PO QDAY 02/06/24 02/06/24 History Allergies Allergy/AdvReac Type Severity Reaction Status Date / Time azithromycin Allergy Intermediate Hives Verified 02/06/24 16:39 ceftriaxone Allergy Intermediate Hives Verified 02/06/24 16:39 ciprofloxacin [From Cipro] AdvReac Verified 02/06/24 16:39 Exam Vital Signs (past 8 hours): - 03/13/24 22:38 03/13/24 22:52 03/13/24 22:53 Pulse Rate 111 H 94 H Respiratory Rate 18 16 Blood Pressure 138/68 127/91 H Pulse Oximetry Oxygen Delivery Method Oxygen Flow Rate 03/13/24 22:53 03/13/24 23:00 03/13/24 23:17 Pulse Rate 96 H 94 H 90 Respiratory Rate 16 16 14 Blood Pressure Pulse Oximetry 95 96 Oxygen Delivery Method Oxygen Flow Rate 03/13/24 23:17 03/13/24 23:30 03/13/24 23:30 Pulse Rate 103 H Respiratory Rate 31 H Blood Pressure 127/60 118/70 Pulse Oximetry Oxygen Delivery Method Oxygen Flow Rate 03/14/24 00:00 03/14/24 00:30 03/14/24 01:00 Pulse Rate 99 H 90 83 Respiratory Rate 29 H 18 Blood Pressure 137/65 Pulse Oximetry 97 96 97 Oxygen Delivery Method Room Air Nasal Cannula Nasal Cannula Oxygen Flow Rate 2 2 03/14/24 01:18 03/14/24 01:18 03/14/24 01:30 Pulse Rate 83 73 Respiratory Rate Blood Pressure 137/65 Pulse Oximetry 97 97 Oxygen Delivery Method Oxygen Flow Rate 03/14/24 01:30 03/14/24 02:00 03/14/24 02:01 Pulse Rate 91 H 80 Respiratory Rate Blood Pressure 145/70 H Pulse Oximetry 95 95 Oxygen Delivery Method Nasal Cannula Oxygen Flow Rate 2 03/14/24 02:01 Pulse Rate Respiratory Rate Blood Pressure 126/60 Pulse Oximetry Oxygen Delivery Method Oxygen Flow Rate Oxygen Delivery Method Nasal Cannula Oxygen Flow Rate 2 Narrative Exam Narrative: Gen-Elderly man alert and oriented Chest-Non labored resp Abdomen-Distended. Periumbilical tenderness non reducible hernia Objective Labs 03/13/24 20:55 03/13/24 20:55 Labs: Laboratory Results - last 24 hr 03/13/24 03/14/24 03/14/24 20:55 00:10 01:25 WBC 9.5 RBC 4.63 Hgb 13.0 L Hct 39.9 L MCV 86.1 MCH 28.1 MCHC 32.6 RDW 19.7 H Plt Count 147 L Neut % (Auto) 82.1 H Lymph % (Auto) 10.4 L Hemphill % (Auto) 5.9 Eos % (Auto) 0.7 L Baso % (Auto) 0.9 Neut # (Auto) 7800 H Lymph # (Auto) 1000 L Hemphill # (Auto) 600 Eos # (Auto) 100 Baso # (Auto) 100 PT 13.9 H INR 1.2 APTT 33 Sodium 136 L Potassium 5.0 Chloride 99 Carbon Dioxide 26 BUN 25 H Creatinine 1.49 H Estimated GFR 45 L BUN/Creatinine Ratio 16.8 Glucose 130 H Lactate Cancelled 2.4 H Calcium 10.0 Magnesium 2.0 Total Bilirubin 1.6 H AST 78 H ALT 28 Alkaline Phosphatase 65 Total Creatine Kinase 148 Troponin I 0.018 < 0.012 NT-Pro-B Natriuret Pep 3890 H Total Protein 8.9 H Albumin 5.0 Globulin 3.9 Albumin/Globulin Ratio 1.3 Lipase 87 03/14/24 03:59 WBC RBC Hgb Hct MCV MCH MCHC RDW Plt Count Neut % (Auto) Lymph % (Auto) Hemphill % (Auto) Eos % (Auto) Baso % (Auto) Neut # (Auto) Lymph # (Auto) Hemphill # (Auto) Eos # (Auto) Baso # (Auto) PT INR APTT Sodium Potassium Chloride Carbon Dioxide BUN Creatinine Estimated GFR BUN/Creatinine Ratio Glucose Lactate 2.1 Calcium Magnesium Total Bilirubin AST ALT Alkaline Phosphatase Total Creatine Kinase Troponin I NT-Pro-B Natriuret Pep Total Protein Albumin Globulin Albumin/Globulin Ratio Lipase PFSH Medical History Asthma Pulmonary nodule Emphysema lung Ectopic atrial tachycardia Aortic stenosis Essential hypertension Prediabetes Surgical History History of lumbar fusion Family History Mother No pertinent past medical history Father No pertinent past medical history Social History household members: spouse Tobacco & Substance Use Smoking Status: Former smoker Tobacco: How many years used: 50 alcohol intake: current substance use type: does not use Assessment & Plan Assessment and plan (1) Incarcerated ventral hernia: Status: Acute Assessment & Plan narrative: 84M PMH afib on anticoagulation, AAA sp EVAR, HTN with a SBO result of incarcerated umbilical hernia. Recommendation is exploratory laparotomy possible bowel resection now. Overview of the operation discussed with patient and . Operative risks including but not limited to infection, hemorrhage, anastomotic leak discussed. Questions have been answered and he provides consent to proceed. Exploratory laparotomy possible bowel resection Time-Based Coding :: [TOTAL MINUTES] spent with patient and on the chart (including review of chart, obtaining history, exam, reviewing outside data, placing orders, documenting exam and treatment plan, and counseling patient) on [DATE].
[2024-03-14] MEDS: SODIUM CHLORIDE 0.9% 1,000 ML 100 ML IV ×3 (06:03→22:24)
--- NOTE | 2024-03-14 06:31 | PC.NURSE ---
Patient taken off unit for surgery at 06:30
[2024-03-14] MEDS: LACTATED RINGERS 1,000 ML 125 ML IV (07:25)
[2024-03-14] MEDS: BUPIVACAINE 0.25% (PF) VIAL 30 ML INJ (07:48)
--- NOTE | 2024-03-14 07:58 | SUR.OPER ---
Supine on padded OR bed, head on pillow, arms secured on padded arm boards at <90 degrees abduction, legs uncrossed, safety belt at thigh, blanket over lower legs, gel under heels.
[2024-03-14] MEDS: ALBUTEROL/IPRATROPIUM 3 ML AMPUL INH (08:22)
--- NOTE | 2024-03-14 08:25 | PM.OP.1 ---
Operative Date/Time/Diagnoses Date of procedure: 03/14/24 Time of procedure: 08:25 Pre-op diagnosis: Incarcerated umbilical hernia, small bowel obstruction Post-op diagnosis: same Procedure & Clinicians Procedure: exploratory laparotomy Same procedure as scheduled: Yes Indications: 84M admitted with a small bowel obstruction result of incarcerated umbilical hernia Surgeon: Lorenzo Tijerina Click Yes if Unassisted: Yes Anesthesia Type: General Operative Notes Findings: Incarcerated small bowel within umbilical hernia. Bowel is viable Specimen(s): none sent Estimated Blood Loss (mL): 50 Procedure in detail: Patient brought to the operating room placed supine. Bilateral lower extremity devices applied. General anesthesia induced intubated with endotracheal tube. Prepped and draped in sterile fashion. Time out performed. Midline laparotomy made. Small bowel was incarcerated within an umbilical hernia. Bowel dissected out of the hernia sac. Small bowel viable. Small bowel run from terminal ileum to ligament of Trietz. Fascia closed with PDS. Subcutaneous tissue closed with Vicryl skin closed with sarah. Extubated and transferred to recovery in stable condition. Sponge and instrument count correct x 2. Complications: none Post-operative Condition: stable Disposition: ICU
[2024-03-14] MEDS: HYDROMORPHONE 1 MG INJ IV ×3 (08:42→08:53)
[2024-03-14] MEDS: LACTATED RINGERS 1,000 ML 42 ML IV (09:39)
[2024-03-14] MEDS: SODIUM CHLORIDE 0.9% FLUSH 10 ML IV ×2 (10:32→20:11)
--- NOTE | 2024-03-14 10:46 | DI.RAD.S_ITS ---
PROCEDURE: XR CHEST 1V INDICATIONS: increasing oxygen needs TECHNIQUE: One view of the chest was acquired. COMPARISON: Located Within [facility], CR, XR CHEST 1V, 03/14/2024, 3:41. FINDINGS: Surgical changes and devices: NG tube tip is below the left hemidiaphragm and is in the expected location of stomach lumen. Aortic stent is noted. Prosthetic aortic valve is also seen. Lungs and pleura: Subtle hazy opacities are noted in bilateral lung webber concerning for interstitial pulmonary edema. Small infiltrates cannot be excluded. No significant pleural effusion. No gross pneumothorax. Mediastinum: Mediastinal contours appear normal. Heart size is enlarged. Bones and chest wall: No suspicious bony lesions. Overlying soft tissues appear unremarkable. IMPRESSION: Cardiomegaly and mild congestion with suggestion of pulmonary edema. Cannot rule out underlying interstitial infiltrates. No pneumothorax. No significant pleural effusion. Dictated by: Kang Medina M.D. on 03/14/2024 at 11:02 Approved by: Kang Medina M.D. on 03/14/2024 at 11:03
[2024-03-14] MEDS: FUROSEMIDE 40 MG/4 ML VIAL IV (10:51)
[2024-03-14] MEDS: METOPROLOL TARTRATE 5 MG/5 ML INJ IV (11:36)
[2024-03-14 12:28] LABS: MRSA (Nasal) PCR NOT DETECTED (Not Detect)
--- NOTE | 2024-03-14 12:54 | CM.DANOTE ---
DCP Assessment Note: Pt is a 84yo male, resident [place], is admitted for SBO. Pt lives in a house with his , Savana. Pt's Primary Care Provider is Dr. Vee Chun MD and insurance is Medicare and [employer]. Reviewed chart and team rounds for pt's medical status and initial discharge needs. DCP met w/patient at bedside; introduced self and role. Patient was found in bed, very somnolent but was agreeable for this DCP to continue assessment with spouse. Pt's was able to confirm pt's baseline and prior living situation. Pt expressed that pt has no history of SNF Rehab and a hx with home health in the past but it didn't work because he didn't like the way it was scheduled. He would most likely decline it if you asked him today. 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 Pt also stated that if highly recommended by provider to have HH post-discharge, pt can be agreeable to it. Plan: Anticipating discharge home with family when medically cleared. CM team will follow closely for coordination of discharge plans. VERN Lim Discharge Planning/Care Management CM Discharge Assessment Start: 03/14/24 12:53 Freq: Status: Active Protocol: Document 03/14/24 12:53 MW (Rec: 03/14/24 12:54 MW [id number]) Discharge Planning Assessment Assigned Toolroom Keeper NINA Mehta DPOA/Assigned Designee Name Savana, Spouse Contact Information [phone] Advance Directives? No History Provided By Family Member,Medical Record Has Patient been admitted in last 30 No days? Prior Living Arrangements House Household Members spouse Type of transporation used prior to Drives own vehicle admit Independent with ADL's Yes Is patient alert and oriented? Yes Caregiver for Another No DME Already Rented / Owned FWW / Walker Discharge Plan Home Whiteboard Updated in Patient Room with Yes name and ext. # of Toolroom Keeper Comment [phone] Review Status In Process Please Provide Date Initial DC 03/14/24 Assessment Was Performed Next Review Type Continued Stay Review
--- NOTE | 2024-03-14 14:51 | PM.HP.1 ---
History of Present Illness History of Present Illness Date Patient Seen: 03/14/24 Time Patient Seen: 10:30 Date of Onset of Symptoms: 03/14/24 Chief complaint: abd pain t-1 Narrative: Narrative: 84 y/o with PMH of CAD, PAF, asthma, HTN, HLD, hypothyroisidm,s/p AAA repair, s/p TEAVR, recent endovascular aortic graft repair at , who presented with abdominal pain while on treatment with Bactrim for Klebsiella UTI. Workup showing incarcerated ventral hernia. After consultation with surgery, he had NGT for decompression, IV abx for UTI and he was placed in observation, NPO and off Eliquis. Interval history: The patient was taken to the operating room and underwent exploratory laparotomy with finding of incarcerated small bowel within an umbilical hernia with viable bowel, and underwent reduction and repair of the umbilical hernia. He was transferred to the ICU. He was significantly hypoxic and tachycardia with atrial fibrillation in the 140s. He is awake, stating he is very thirsty and feels dry. He and his note that he threw up multiple times yesterday, and feel that some may have been aspirated. [facility] Medical History Asthma Pulmonary nodule Emphysema lung Ectopic atrial tachycardia Aortic stenosis Essential hypertension Prediabetes Surgical History History of lumbar fusion Family History Mother No pertinent past medical history Father No pertinent past medical history Social History household members: spouse Smoking Status: Former smoker Tobacco: How many years used: 50 alcohol intake: current substance use type: does not use Meds Home Medications and Allergies Home Medications Medication Instructions Recorded Confirmed Type acetaminophen 500 mg tablet 500 mg PO Q6H PRN Pain (Scale 08/22/22 03/14/24 History Score 1-3) ferrous sulfate 325 mg (65 mg 65 mg PO DAILY 08/22/22 03/14/24 History iron) tablet (iron) levothyroxine 150 mcg tablet 150 mcg PO DAILY 08/22/22 03/14/24 History rosuvastatin 40 mg tablet 40 mg PO DAILY 08/22/22 03/14/24 History tramadol 50 mg tablet 50 mg PO BID PRN Pain (Scale Score 08/22/22 03/14/24 History 1-3) apixaban 5 mg tablet (Eliquis) 5 mg PO BID #60 tabs 10/16/22 03/14/24 Rx guaifenesin 600 mg tablet, 1,200 mg (2 x 600 mg) PO BID #30 10/16/22 Rx extended release 12 hr (Mucus tabs Relief ER) amlodipine 5 mg tablet 5 mg PO QDAY 02/06/24 03/14/24 History gabapentin 300 mg capsule 600 mg PO BID 03/14/24 03/14/24 History methocarbamol 500 mg PO BID PRN Muscle Spasticity 03/14/24 03/14/24 History metoprolol tartrate 25 mg tablet 37.5 mg PO BID 03/14/24 03/14/24 History Allergies Allergy/AdvReac Type Severity Reaction Status Date / Time azithromycin Allergy Intermediate Hives Verified 02/06/24 16:39 ceftriaxone Allergy Intermediate Hives Verified 02/06/24 16:39 ciprofloxacin [From Cipro] AdvReac Verified 02/06/24 16:39 Exam Vital Signs (past 8 hours): - 03/14/24 06:53 03/14/24 08:17 03/14/24 08:22 Temperature 101.7 F H 98.7 F Pulse Rate 99 H 143 H 132 H Respiratory Rate 22 25 H 28 H Blood Pressure 99/58 L 133/91 H 133/91 H Pulse Oximetry 93 90 L 88 L Oxygen Delivery Method Nasal Cannula Simple Mask Simple Mask Oxygen Flow Rate 3 10 10 03/14/24 08:29 03/14/24 08:32 03/14/24 08:42 Temperature Pulse Rate 132 H 116 H 124 H Respiratory Rate 28 H 24 24 Blood Pressure 152/81 H 160/64 H 140/97 H Pulse Oximetry 88 L 89 L 86 L Oxygen Delivery Method Simple Mask Simple Mask Oxygen Flow Rate 15 15 03/14/24 08:52 03/14/24 08:55 03/14/24 08:57 Temperature 99.5 F Pulse Rate 108 H 133 H 122 H Respiratory Rate 22 16 22 Blood Pressure 140/72 132/64 Pulse Oximetry 90 L 91 91 Oxygen Delivery Method Oximask Oximask Oximask Oxygen Flow Rate 15 15 15 03/14/24 09:17 03/14/24 09:30 03/14/24 09:45 Temperature Pulse Rate 109 H 118 H 110 H Respiratory Rate 18 20 18 Blood Pressure 119/69 117/74 117/55 L Pulse Oximetry 92 92 92 Oxygen Delivery Method Oximask Oxygen Flow Rate 15 03/14/24 10:00 03/14/24 10:27 03/14/24 10:28 Temperature Pulse Rate 115 H 110 H Respiratory Rate 20 18 Blood Pressure 99/58 L Pulse Oximetry 93 90 L Oxygen Delivery Method Oximask Oximask Nasal Cannula Oxygen Flow Rate 15 10 03/14/24 11:00 03/14/24 11:00 03/14/24 11:15 Temperature Pulse Rate 105 H 115 H Respiratory Rate 17 16 Blood Pressure 108/55 L Pulse Oximetry 90 L 91 Oxygen Delivery Method Oxygen Flow Rate 03/14/24 11:15 03/14/24 11:24 03/14/24 11:24 Temperature Pulse Rate 119 H Respiratory Rate 18 Blood Pressure 105/56 L 107/73 Pulse Oximetry 89 L Oxygen Delivery Method Oxygen Flow Rate 03/14/24 11:30 03/14/24 11:30 03/14/24 11:45 Temperature Pulse Rate 124 H Respiratory Rate 20 Blood Pressure 121/60 92/49 L Pulse Oximetry 92 Oxygen Delivery Method Oxygen Flow Rate 03/14/24 11:45 03/14/24 12:00 03/14/24 12:00 Temperature Pulse Rate 110 H 105 H Respiratory Rate 18 17 Blood Pressure 96/56 L Pulse Oximetry 93 93 Oxygen Delivery Method Oxygen Flow Rate 03/14/24 12:15 03/14/24 12:15 03/14/24 12:30 Temperature Pulse Rate 114 H 110 H Respiratory Rate 20 22 Blood Pressure 111/56 L Pulse Oximetry 93 92 Oxygen Delivery Method Oxygen Flow Rate 03/14/24 12:30 03/14/24 12:45 03/14/24 12:45 Temperature Pulse Rate 105 H Respiratory Rate 18 Blood Pressure 122/62 113/55 L Pulse Oximetry 92 Oxygen Delivery Method Oxygen Flow Rate 03/14/24 13:00 03/14/24 13:00 03/14/24 13:15 Temperature Pulse Rate 102 H Respiratory Rate 18 Blood Pressure 106/55 L 107/55 L Pulse Oximetry 91 Oxygen Delivery Method Oxygen Flow Rate 03/14/24 13:15 03/14/24 13:30 03/14/24 13:30 Temperature Pulse Rate 115 H 102 H Respiratory Rate 20 17 Blood Pressure 123/58 L Pulse Oximetry 91 93 Oxygen Delivery Method Oxygen Flow Rate 03/14/24 13:46 03/14/24 13:46 03/14/24 14:00 Temperature Pulse Rate 106 H 100 H Respiratory Rate 17 17 Blood Pressure 115/53 L Pulse Oximetry 93 93 Oxygen Delivery Method Oxygen Flow Rate 03/14/24 14:02 03/14/24 14:02 03/14/24 14:31 Temperature Pulse Rate 109 H 115 H Respiratory Rate 19 14 Blood Pressure 104/54 L Pulse Oximetry 93 92 Oxygen Delivery Method Nasal Cannula Oxygen Flow Rate 3.5 Oxygen Delivery Method Nasal Cannula Oxygen Flow Rate 3.5 Narrative Exam Narrative: GENERAL: This is a well-nourished, well-developed patient, in no apparent distress, with 10 L oxygen mask in place, oxygen saturations 92%. Nasogastric tube in place. HEAD: Atraumatic. Normocephalic. No temporal or scalp tenderness. EYES: Pupils equal round and reactive. Extraocular motions intact. No scleral icterus. No injection or drainage. ENT: Mucous membranes pink and moist. NECK: Trachea midline. No JVD, bruits or lymphadenopathy. Supple, nontender, no meningeal signs. CARDIOVASCULAR: Irregularly irregular, tachycardic. RESPIRATORY: Scattered coarse bilateral rhonchi. GASTROINTESTINAL: Abdomen soft, non-tender, nondistended. Bandage in place, clean, dry and intact. EXTREMITIES: No clubbing, cyanosis, or edema. BACK: Nontender without deformity or crepitance. No flank tenderness. NEUROLOGIC: Alert, oriented, speech fluent, full upper and lower motor strength, no focal deficits evident. DERMATOLOGIC: No rashes or skin lesions. Objective ECG Impression: Atrial fibrillation at 81 beats per minute (03/13/2024 at 8:58 p.m.) Imaging +: Radiologist's impression: 1. Chest x-ray 03/13/2024: No acute cardiopulmonary abnormalities or focal consolidation. 2. Abdomen pelvic CT 03/13/2024: Small bowel and containing ventral abdominal hernia with short segment of incarcerated and likely strangulated small bowel with associated small bowel obstruction proximally as well as moderate gastric distension. The small bowel distal to the hernia is decompressed as is the colon. Recommend surgical consultation. Colonic diverticulosis without acute diverticulitis. Redemonstration of abdominal aortic aneurysm status post bifurcated graft repair. No evidence for endoleak. Overall size appears stable. Recommend continued clinical and imaging surveillance Other nonacute/chronic findings as above. 3. Chest x-ray 03/14/2024: Gastric tube side port projects over the GE junction. Recommend 5 centimeter advancement. Hazy bibasilar opacities, right greater than left. Differential includes atelectasis, infection or aspiration. 4. Chest x-ray 03/14/2024: Cardiomegaly and mild congestion with suggestion of pulmonary edema. Cannot rule out underlying interstitial infiltrates. No pneumothorax. No significant pleural effusion. Labs 03/13/24 20:55 03/13/24 20:55 Labs: Laboratory Results - last 24 hr 03/13/24 03/14/24 03/14/24 20:55 00:10 01:25 WBC 9.5 RBC 4.63 Hgb 13.0 L Hct 39.9 L MCV 86.1 MCH 28.1 MCHC 32.6 RDW 19.7 H Plt Count 147 L Neut % (Auto) 82.1 H Lymph % (Auto) 10.4 L Mcdonald % (Auto) 5.9 Eos % (Auto) 0.7 L Baso % (Auto) 0.9 Neut # (Auto) 7800 H Lymph # (Auto) 1000 L Mcdonald # (Auto) 600 Eos # (Auto) 100 Baso # (Auto) 100 PT 13.9 H INR 1.2 APTT 33 Sodium 136 L Potassium 5.0 Chloride 99 Carbon Dioxide 26 BUN 25 H Creatinine 1.49 H Estimated GFR 45 L BUN/Creatinine Ratio 16.8 Glucose 130 H Lactate Cancelled 2.4 H Calcium 10.0 Magnesium 2.0 Total Bilirubin 1.6 H AST 78 H ALT 28 Alkaline Phosphatase 65 Total Creatine Kinase 148 Troponin I 0.018 < 0.012 NT-Pro-B Natriuret Pep 3890 H Total Protein 8.9 H Albumin 5.0 Globulin 3.9 Albumin/Globulin Ratio 1.3 Lipase 87 Nasal Screen MRSA (PCR) 03/14/24 03/14/24 03:59 10:20 WBC RBC Hgb Hct MCV MCH MCHC RDW Plt Count Neut % (Auto) Lymph % (Auto) Mcdonald % (Auto) Eos % (Auto) Baso % (Auto) Neut # (Auto) Lymph # (Auto) Mcdonald # (Auto) Eos # (Auto) Baso # (Auto) PT INR APTT Sodium Potassium Chloride Carbon Dioxide BUN Creatinine Estimated GFR BUN/Creatinine Ratio Glucose Lactate 2.1 Calcium Magnesium Total Bilirubin AST ALT Alkaline Phosphatase Total Creatine Kinase Troponin I NT-Pro-B Natriuret Pep Total Protein Albumin Globulin Albumin/Globulin Ratio Lipase Nasal Screen MRSA (PCR) Not detected Assessment & Plan Assessment & Plan narrative: 1. Umbilical Hernia / Bowel Obstruction - incarcerated, status post repair 03/14/2024 - IVFs, antiemetics, pain management - surgical consult appreciated 2. Aspiration pneumonia. -treat with IV antibiotics 4. Acute hypoxemic respiratory failure due to 2. 5. UTI -recheck urinalysis, antibiotics as above 4. A-FIB with rapid ventricular response, likely due to volume depletion/ Anticoagulated -hydrate intravenously -Last Eliquis on 03/13, restart 5. Hx of , s/p AAA graft repair, HTN, CAD - s/p transendovascular AVR TEAVR - follows with cardiology - ASA, statin, metoprolol, amlodipine and ELIQUIS on hold - telemetry monitoring, IV BB prn for BP / rate control The patient is admitted inpatient status and will require at least 2 midnights of inpatient level care. Quality MIPS - Admit I confirm the patient?s Advance Care Plan is present, Code status is documented, Surrogate decision maker is in patient?s record [If Yes, STOP here]: Yes [facility] - Meds 'Current medications' to include all prescriptions, [id number]-ruospjr products, herbals, cannabis/cannabidiol products, and vitamin/mineral/dietary (nutritional) supplements. I have utilized all available resources to obtain, update, or review the patient?s current medications. [If Yes, STOP here]: Yes [facility] Charge Codes Initial inpatient/observation care: [id number]
[2024-03-14 15:08] LABS: Appearance Urine UA CLEAR; Bilirubin Urine UA NEGATIVE (NEGATIVE); Color Urine UA YELLOW; Glucose Urine UA NEGATIVE (Negative); Ketones Urine UA NEGATIVE (NEGATIVE); Leukocyte Esterase Urine UA NEGATIVE (NEGATIVE); Nitrite Urine UA NEGATIVE (Negative); Occult Blood Urine UA 3+ (Negative); Protein Urine UA TRACE (Negative); Urobilinogen Urine UA 0.2 E.U./dL (0.2); pH Urine UA 5.5 (4.5-8.0)
[2024-03-14 15:20] LABS: Bacteria Urine Occasional (0-1); Culture Indicated Urine Cult Not Indicated; RBC Urine 10-30/HPF (0-5/HPF); Squamous Epithelial Cell Urine None Seen (0-5/HPF); Uric Acid Crystals Urine Occasional; Urine Volume 10mL (spun); WBC Urine 0-1/HPF (0-5/HPF)
[2024-03-14] MEDS: DOXYCYCLINE HYCLATE 100 MG TABLET PO ×2 (16:07→20:10)
--- NOTE | 2024-03-14 16:56 | PC.NURSE ---
Shift Note: 1030 Pt arrived to 230 per bed from PACU awake and oriented, O2 per oxymask at 15L. Sats 96%. HR 100-120's, Abdominal dressing dry and intact, abd binder in place. SCDs initiated, IV NS @ 100ml per hr held pending order from Hospitalist. CXR done stat for bibasalar rales, Lasix 40 IV given as ordered. 1130 NS @ 100hr as ordered. 1430, Bladder scan done >600cc present, pt unable to void, straight cath done, 600cc obtained. Spec sent to lab.
--- NOTE | 2024-03-14 17:58 | PC.NURSE ---
Addendum, NG tube removed per order Dr. Tijerina, clear liquids offered
[2024-03-14] MEDS: APIXABAN 5 MG TABLET PO (20:10)
[2024-03-14] MEDS: METOPROLOL IR 25 MG TABLET 37.5 MG PO (20:10)
[2024-03-14] MEDS: GABAPENTIN 600 MG TABLET PO (20:10)
[2024-03-15] VITALS (54 sets, daily range): BP systolic 97–131; BP diastolic 54–84; PULSE 77–120; RESP 13–32; TEMP 36.5–37.1; O2SAT 81–100
[2024-03-15] MEDS: MORPHINE 4 MG/ML INJ 2 MG IV ×3 (01:10→07:44)
[2024-03-15 04:06] LABS: Add Manual Diff / Slide Review NO; Basophils Absolute Auto 0 /uL (0-100); Basophils Percent Auto 0.5 % (0-2); Eosinophils Absolute Auto 0 /uL (0-450); Eosinophils Percent Auto 0.5 % (2-4); Hematocrit 28.2 % (41-53); Hemoglobin 9.4 g/dL (13.5-17.5); Lymphocytes Absolute Auto 900 /uL (1100-4500); Lymphocytes Percent Auto 11.6 % (25-40); Mean Corpuscular HGB Conc 33.3 % (30-36); Mean Corpuscular Hemoglobin 28.6 PG (26-34); Mean Corpuscular Volume 85.9 fL (80-100); Monocytes Absolute Auto 500 /uL (0-900); Monocytes Percent Auto 7.1 % (3-14); Neutrophils Absolute Auto 6100 /uL (1500-7000); Neutrophils Percent Auto 80.3 % (50-75); Platelet Count 101 X10^3/uL (150-400); Red Blood Cell Count 3.28 X10^6/uL (4.5-5.9); Red Cell Distribution Width 19.8 % (11.6-14.8); White Blood Cell Count 7.6 X10^3/uL (4.5-11.0)
[2024-03-15 04:21] LABS: BUN Creatinine Ratio 19.6 (6-22); Blood Urea Nitrogen 30 mg/dL (9-20); Calcium 8.2 mg/dL (8.4-10.2); Carbon Dioxide 25 mmol/L (22-32); Chloride 103 mmol/L (98-107); Estimated Glomerular Filt Rate 44 mL/min (>60); Glucose 104 mg/dL (80-110); HEMOLYSIS < 15 (0-50); Potassium 4.2 mmol/L (3.4-5.1); Sodium 134 mmol/L (137-145)
[2024-03-15] MEDS: LEVOTHYROXINE 50 MCG TABLET 150 MCG PO (06:30)
--- NOTE | 2024-03-15 06:34 | PC.NURSE ---
Acquisition Associate Note-Patient has been drowsy but oriented. IV morphine given for post-op pain per prn order. Able to stand at side of bed with walker. Remains in A-fib RVR HR around 100. Required Oximask at 10L to keep SpO2 > 92%, has bilateral rhonchi, denies dyspnea. Has urinary retention, initial assessment showed small amount of blood from penis, bladder scanned >400ml, cudee Dominguez placed with immediate yellow sediment urine.
[2024-03-15] MEDS: SODIUM CHLORIDE 0.9% 1,000 ML 100 ML IV ×2 (07:44→17:55)
[2024-03-15] MEDS: APIXABAN 5 MG TABLET PO (08:28)
[2024-03-15] MEDS: GABAPENTIN 600 MG TABLET PO ×2 (08:28→20:30)
[2024-03-15] MEDS: DOXYCYCLINE HYCLATE 100 MG TABLET PO ×2 (08:28→20:30)
[2024-03-15] MEDS: METOPROLOL IR 25 MG TABLET 37.5 MG PO ×2 (08:28→20:31)
[2024-03-15] MEDS: ATORVASTATIN 20 MG TABLET 80 MG PO (08:29)
--- NOTE | 2024-03-15 09:24 | P.PN_ITS ---
Subjective Subjective Date Patient Seen: 03/15/24 Time Patient Seen: 08:20 Interval history: Narrative: 84 y/o with PMH of CAD, PAF, asthma, HTN, HLD, hypothyroisidm,s/p AAA repair, s/p TEAVR, recent endovascular aortic graft repair at , who presented with abdominal pain while on treatment with Bactrim for Klebsiella UTI. Workup showing incarcerated ventral hernia. After consultation with surgery, he had NGT for decompression, IV abx for UTI and he was placed in observation, NPO and off Eliquis. Interval history: The patient was taken to the operating room and underwent exploratory laparotomy with finding of incarcerated small bowel within an umbilical hernia with viable bowel, and underwent reduction and repair of the umbilical hernia. He was transferred to the ICU. He was significantly hypoxic and tachycardia with atrial fibrillation in the 140s. He is awake, stating he is very thirsty and feels dry. He and his note that he threw up multiple times yesterday, and feel that some may have been aspirated. Interval history: The patient reports feeling better. He has been tolerating a clear liquid diet. He continues to have cough and remains on supplemental oxygen. He has not yet passed flatus. He was unable to urinate and a Dominguez catheter was placed last night. Exam Vital Signs (past 8 hours): - 03/15/24 01:30 03/15/24 02:00 03/15/24 02:00 Temperature Pulse Rate 106 H 105 H Respiratory Rate 23 22 Blood Pressure 114/62 Pulse Oximetry 86 L 95 03/15/24 02:30 03/15/24 03:00 03/15/24 03:00 Temperature Pulse Rate 101 H 101 H Respiratory Rate 18 18 Blood Pressure 119/62 Pulse Oximetry 93 93 03/15/24 03:30 03/15/24 04:00 03/15/24 04:00 Temperature Pulse Rate 106 H 107 H Respiratory Rate 25 H 18 Blood Pressure 108/55 L Pulse Oximetry 97 94 03/15/24 04:30 03/15/24 05:00 03/15/24 05:00 Temperature Pulse Rate 98 H 99 H Respiratory Rate 18 16 Blood Pressure 119/62 Pulse Oximetry 94 95 03/15/24 05:30 03/15/24 06:00 03/15/24 06:00 Temperature Pulse Rate 106 H 104 H Respiratory Rate 20 19 Blood Pressure 105/58 L Pulse Oximetry 93 94 03/15/24 06:30 03/15/24 07:00 03/15/24 07:00 Temperature Pulse Rate 102 H 111 H Respiratory Rate 18 20 Blood Pressure 116/59 L Pulse Oximetry 93 94 03/15/24 07:40 Temperature 98.2 F Pulse Rate Respiratory Rate Blood Pressure Pulse Oximetry Oxygen Delivery Method Oximask Oxygen Flow Rate 3.5 Narrative Exam Narrative: GENERAL: This is a well-nourished, well-developed patient, in no apparent distress, with 3.5 L nasal cannula in place EYES: Pupils equal round and reactive. Extraocular motions intact. No scleral icterus. No injection or drainage. ENT: Mucous membranes pink and moist. NECK: Supple, nontender, no meningeal signs. CARDIOVASCULAR: Irregularly irregular, tachycardic. RESPIRATORY: Clear to auscultation, but with vigorous rhonchi when coughing per nursing GASTROINTESTINAL: Abdomen soft, non-tender, nondistended. Bandage in place, clean, dry and intact. EXTREMITIES: No edema. NEUROLOGIC: Alert, oriented, speech fluent, full upper and lower motor strength, no focal deficits evident. DERMATOLOGIC: No rashes or skin lesions. Objective Labs 03/15/24 03:44 03/15/24 03:44 Labs: Laboratory Results - last 24 hr 03/14/24 03/14/24 03/15/24 10:20 15:00 03:44 WBC 7.6 RBC 3.28 L Hgb 9.4 L Hct 28.2 L MCV 85.9 MCH 28.6 MCHC 33.3 RDW 19.8 H Plt Count 101 L Neut % (Auto) 80.3 H Lymph % (Auto) 11.6 L [place] % (Auto) 7.1 Eos % (Auto) 0.5 L Baso % (Auto) 0.5 Neut # (Auto) 6100 Lymph # (Auto) 900 L [place] # (Auto) 500 Eos # (Auto) 0 Baso # (Auto) 0 Sodium 134 L Potassium 4.2 Chloride 103 Carbon Dioxide 25 BUN 30 H Creatinine 1.53 H Estimated GFR 44 L BUN/Creatinine Ratio 19.6 Glucose 104 Calcium 8.2 L Urine Color Yellow Urine Appearance Clear Urine pH 5.5 Ur Specific [place] 1.010 Urine Protein Trace H Urine Glucose (UA) Negative Urine Ketones Negative Urine Occult Blood 3+ H Urine Nitrate Negative Urine Bilirubin Negative Urine Urobilinogen 0.2 Ur Leukocyte Esterase Negative Urine RBC 10-30/hpf H Urine WBC 0-1/hpf Ur Squamous Epith Cells None seen Uric Acid Crystals Occasional Urine Bacteria Occasional (0-1) Ur Culture Indicated? Cult not indicated Vol Urine Centrifuged 10ml (spun) Nasal Screen MRSA (PCR) Not detected PFSH Medical History Asthma Pulmonary nodule Emphysema lung Ectopic atrial tachycardia Aortic stenosis Essential hypertension Prediabetes Surgical History History of lumbar fusion Family History Mother No pertinent past medical history Father No pertinent past medical history Social History household members: spouse Smoking Status: Former smoker Tobacco: How many years used: 50 alcohol intake: current substance use type: does not use Assessment & Plan Assessment & Plan narrative: 1. Umbilical Hernia / Bowel Obstruction - incarcerated, status post repair 03/14/2024 - advance diet per surgery 2. Aspiration pneumonia. -treat with IV doxycycline (noting multiple drug allergies), switch to oral tomorrow if doing well 4. Acute hypoxemic respiratory failure due to 2 -continue supplemental oxygen 5. UTI -urinalysis unremarkable, appears treated 4. Atrial fibrillation with with rapid ventricular response, likely due to volume depletion/ Anticoagulated -continue home metoprolol dosing -Last Eliquis on 03/13, restart 5. Hx of , s/p AAA graft repair, HTN, CAD - s/p transendovascular AVR TEAVR - follows with cardiology - ASA, statin, metoprolol, amlodipine and ELIQUIS on hold - telemetry monitoring, IV BB prn for BP / rate control 6. Chronic kidney disease, stage III, stable 7. 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 -monitor 8. Urinary retention. -continue Dominguez catheter, attempt a voiding trial tomorrow 9. Corynebacterium in blood culture, likely contaminant -no treatment indicated 10. Code status: Full code. Defined on admission in discussion with patient. The patient is admitted inpatient status and will require at least 2 midnights of inpatient level care. MICHAEL 03/17/2024 PROFEE Charge codes Subsequent inpatient/observation care: [id number]
[2024-03-15] MEDS: ACETAMINOPHEN 325 MG TABLET 650 MG PO (10:49)
[2024-03-15] MEDS: SODIUM CHLORIDE 0.9% FLUSH 10 ML IV ×2 (10:49→20:31)
--- NOTE | 2024-03-15 11:23 | DI.US.S_ITS ---
PROCEDURE: US ARTERIAL DUPLEX LE RT INDICATIONS: Cold extremity TECHNIQUE: Color and pulse Doppler interrogation was performed of the right lower extremity arterial system, with image documentation. COMPARISON: None. FINDINGS: Common femoral artery: 89 cm/sec, with triphasic flow. Deep femoral artery: 60 cm/sec, with triphasic flow. Proximal superficial femoral artery: 80 cm/sec, with triphasic flow. Mid superficial femoral artery: 93 cm/sec, with triphasic flow. Distal superficial femoral artery: 70 cm/sec, with triphasic flow. Popliteal artery: 54 cm/sec, with triphasic flow. Posterior tibial artery: 48 cm/sec, with biphasic flow. Anterior tibial artery/dorsalis pedis: 41 cm/sec, with biphasic flow. Grewal-scale imaging description: No significant plaque is seen IMPRESSION: No hemodynamically significant arterial stenosis in the right lower extremity. Approved by: Crow Renee M.D. on 03/15/2024 at 17:44
--- NOTE | 2024-03-15 11:24 | PM.PN.1 ---
Subjective Subjective Date Patient Seen: 03/15/24 Time Patient Seen: 11:24 Interval history: Some incisional pain with coughing Nursing noted cool right lower extremity Exam Vital Signs (past 8 hours): - 03/15/24 03:30 03/15/24 04:00 03/15/24 04:00 Temperature Pulse Rate 106 H 107 H Respiratory Rate 25 H 18 Blood Pressure 108/55 L Pulse Oximetry 97 94 Oxygen Delivery Method Oxygen Flow Rate 03/15/24 04:30 03/15/24 05:00 03/15/24 05:00 Temperature Pulse Rate 98 H 99 H Respiratory Rate 18 16 Blood Pressure 119/62 Pulse Oximetry 94 95 Oxygen Delivery Method Oxygen Flow Rate 03/15/24 05:30 03/15/24 06:00 03/15/24 06:00 Temperature Pulse Rate 106 H 104 H Respiratory Rate 20 19 Blood Pressure 105/58 L Pulse Oximetry 93 94 Oxygen Delivery Method Oxygen Flow Rate 03/15/24 06:30 03/15/24 07:00 03/15/24 07:00 Temperature Pulse Rate 102 H 111 H Respiratory Rate 18 20 Blood Pressure 116/59 L Pulse Oximetry 93 94 Oxygen Delivery Method Oxygen Flow Rate 03/15/24 07:00 03/15/24 07:40 03/15/24 09:21 Temperature 98.2 F Pulse Rate 102 H Respiratory Rate 17 Blood Pressure Pulse Oximetry 93 Oxygen Delivery Method Oximask High Flow Nasal Cannula Oxygen Flow Rate 6 Oxygen Delivery Method High Flow Nasal Cannula Oxygen Flow Rate 6 Narrative Exam Narrative: Abdomen is soft The right lower extremity is notably cooler than the left lower extremity There is a faint dorsalis pedis pulse of the right foot Objective Labs 03/15/24 03:44 03/15/24 03:44 Labs: Laboratory Results - last 24 hr 03/14/24 03/14/24 03/15/24 10:20 15:00 03:44 WBC 7.6 RBC 3.28 L Hgb 9.4 L Hct 28.2 L MCV 85.9 MCH 28.6 MCHC 33.3 RDW 19.8 H Plt Count 101 L Neut % (Auto) 80.3 H Lymph % (Auto) 11.6 L [place] % (Auto) 7.1 Eos % (Auto) 0.5 L Baso % (Auto) 0.5 Neut # (Auto) 6100 Lymph # (Auto) 900 L [place] # (Auto) 500 Eos # (Auto) 0 Baso # (Auto) 0 Sodium 134 L Potassium 4.2 Chloride 103 Carbon Dioxide 25 BUN 30 H Creatinine 1.53 H Estimated GFR 44 L BUN/Creatinine Ratio 19.6 Glucose 104 Calcium 8.2 L Urine Color Yellow Urine Appearance Clear Urine pH 5.5 Ur Specific [place] 1.010 Urine Protein Trace H Urine Glucose (UA) Negative Urine Ketones Negative Urine Occult Blood 3+ H Urine Nitrate Negative Urine Bilirubin Negative Urine Urobilinogen 0.2 Ur Leukocyte Esterase Negative Urine RBC 10-30/hpf H Urine WBC 0-1/hpf Ur Squamous Epith Cells None seen Uric Acid Crystals Occasional Urine Bacteria Occasional (0-1) Ur Culture Indicated? Cult not indicated Vol Urine Centrifuged 10ml (spun) Nasal Screen MRSA (PCR) Not detected PFSH Medical History Asthma Pulmonary nodule Emphysema lung Ectopic atrial tachycardia Aortic stenosis Essential hypertension Prediabetes Surgical History History of lumbar fusion Family History Mother No pertinent past medical history Father No pertinent past medical history Social History household members: spouse Smoking Status: Former smoker Tobacco: How many years used: 50 alcohol intake: current substance use type: does not use Assessment & Plan Assessment and plan (1) Incarcerated ventral hernia: Status: Acute Plan Advance diet We will order a duplex study of the right lower extremity to ensure that there is sufficient arterial blood flow Time-Based Coding :: [TOTAL MINUTES] spent with patient and on the chart (including review of chart, obtaining history, exam, reviewing outside data, placing orders, documenting exam and treatment plan, and counseling patient) on [DATE].
--- NOTE | 2024-03-15 11:28 | CM.DPC ---
DCP Cont: Per MD, pt with strangulated hernia repair and now advancing his clears to see how he can tolerate diet and making slow improvements but remains on oxymask and had some urinary retention. Not yet medically stable to discharge today. SW met bedside with pt and RN and explained role and pt sitting in bedside chair and inquired about pt's mobility and strength and both pt and RN in agreement that PT eval likely needed and beneficial while pt admitted to increase his strength and endurance towards his preference of d/c home with spouse. PT/OT orders placed and alerted PT to new eval and treat. Plan: SW to follow closely for PT eval and recommendations to confirm safe home plan (pt not agreeable to HH at this time, prior poor experience) and to see how pt tolerates advancing diet. NINA Romo
--- NOTE | 2024-03-15 13:38 | PC.NURSE ---
10:00 Noted that Pt R leg cold and mottled. Calf on R colder than left and pulses dopplered only in r leg. notified and assessed the leg. When pts arrived she stated that this happens quite often and has been evaluated by a vascular team. They were assured that the flow in that leg was good. Pt denies pain on the right except when his sciatica flairs up.
--- NOTE | 2024-03-15 13:40 | PT.IIE ---
Current Diagnoses Hypothyroidism, unspecified (03/14/24) Hyperlipidemia, unspecified (03/14/24) Unspecified atrial fibrillation (03/14/24) Mild intermittent asthma, uncomplicated (03/14/24) Other and unspecified ventral hernia with obstruction, without gangrene (03/14/24) Unspecified intestinal obstruction, unspecified as to partial versus complete obstruction (03/14/24) Urinary tract infection, site not specified (03/14/24) alf (current) use of anticoagulants (03/14/24) Surgery Performed Operation Date: 03/14/24 06:30 Actual Procedures p Exploratory Laparotomy GEN Renny Tijerina MD Surgical History (Last Reviewed 03/15/24 @ 09:31 by Chava Clayton MD) History of lumbar fusion Medical History (Last Reviewed 03/15/24 @ 09:31 by Chava Clayton MD) Aortic stenosis Asthma Ectopic atrial tachycardia Emphysema lung Essential hypertension Prediabetes Pulmonary nodule Physical Therapy Inpatient Evaluation/Re-Eval M1 PT/OT-IP Prior Functional Status Start: 03/15/24 15:22 Freq: NEEDED Status: Active Protocol: Document 03/15/24 13:40 AB (Rec: 03/15/24 15:38 AB [id number]) Medical Review Prior Functional Status Medical History Reviewed Yes Communication agreeable to do PT Mobility and Gait spouse in room and provided pt 's PLOF and home set up. spouse stated that pt is modified independent with all mobilities and ambulation using 4WW Social History Household Members spouse Living Arrangements House Number of Floors (Floors) One Floor Number of Stairs To Enter/Railing? no steps to enter Home Environment Standard Height Toilet,Walk in Shower Home Equipment Four Wheel Walker,Shower Seat with Backrest,Hand Held Shower M2 PT-IP Current Condition Start: 03/15/24 15:22 Freq: NEEDED Status: Active Protocol: Document 03/15/24 13:40 AB (Rec: 03/15/24 15:38 AB [id number]) Physical Therapy Current Condition Current Condition Evaluation Date 03/15/24 Treatment Diagnosis SBO; incarcerated ventral hernia s/p ex-lap; UTI; difficulty in walking Onset Date 03/14/24 M3 PT-IP Subjective Start: 03/15/24 15:22 Freq: NEEDED Status: Active Protocol: Document 03/15/24 13:40 AB (Rec: 03/15/24 15:38 AB [id number]) Subjective Physical Therapy Visit Type Type Initial Evaluation Visit Start Time 13:40 Visit Stop Time 14:35 Number of PROMOTIONS TEAM LEADER Visits 0 Physical Therapy Visit Comments Patient Comments agreeable to do PT Therapy Pain Assessment Pain When Pain Assessed At Rest Pain Present Pain Present Pain Reported Location abdomen Scale Used pain scale not stated; increases with movement Pain Management Techniques Distraction,Modification of Treatment,Re-positioning, Timing of Activity with Medications M4 PT-IP Mobility and Gait Start: 03/15/24 15:22 Freq: NEEDED Status: Active Protocol: Document 03/15/24 13:40 AB (Rec: 03/15/24 15:38 AB [id number]) PT-Bed Mobility Assessment Rolling Type of Rolling Log Rolling Level of Assist Maximal Assistance Supine to Sit Supine to Sit Maximum Assistance,Head of Bed Elevated,Bedrails Sit to Supine Sit to Supine Maximum Assistance,Bedrails Scooting Scooting to Edge of Bed Maximum Assistance PT-Transfer Assessment Sit to and From Stand Sit to and from Stand Moderate Assistance,1 Person Assistance,Use of Upper Extremities Equipment Transfer Assistive Device Gait Belt,Front Wheeled Walker Orthotic/Prosthetic Devices or Brace: No Transfer Ability Level of Assist Moderate Assistance,Maximum Assistance,1 Person Assistance ,Use of Upper Extremities Comments Mobility Comments pt supine in bed and spouse in room. pt initially asleep. talked with spouse and obtained PLOF and home set up. pt woke up and agreed to do PT. pt with O2 at 7L/min and O2 sat at 95%. BP: 160/58. pt with A-fib. educated pt on abdominal precautions and log roll bed mobility. post-op handout provided. spouse stated that pt has h/o back sx and has been doing log roll bed mobility. pt completed supine to sit log roll max A and max cues. HOB elevated and pt used bed rail to assist. pt able to sit on EOB CGA. completed sit to stand mod A and ambulated in room using FWW ~ 20 ft. pt initially requiring mod A but after 5 ft of walking requiring max A with increas forward trunk flex and cued for upright posture requiring repeated cues to correct posture. pt refused to sit on the chair and sat on EOB. O2 sat : 85% but increased to 88 % in a few seconds. pt required max A for log roll sit to supine. positioned pt in bed max A. call light and table placed within reach. nurse in room. informed pt and spouse regarding pt's mobility level and assistance needed and possible SNF rehab. spouse stated that he would like to take pt home but if really needed, can go to SNF. Gait Assessment Gait Gait Assistance Required: Moderate Assistance,Maximum Assistance,1 Person Assist Distance (Feet) 20 Able to Maintain Weight Bearing Status Yes During Gait Assistive Devices Assistive Device Gait Belt,Front Wheeled Walker Orthotic/Prosthetic Devices or Brace: No Gait Deviations General Gait Pattern Decreased Stride Length, Decreased Feet Clearance,Step- to Gait Factors Limiting Gait Function Factors Limiting Gait Function Decreased Activity Tolerance, Decreased Strength,Difficulty Following Directions,Limited Range of Motion,Pain,Poor Balance,Poor Safety Awareness, Respiratory Distress PT-Balance Assessment Sitting Balance and Reactions Static Sitting Balance Ability Good Dynamic Sitting Balance Ability Fair Standing Balance and Reactions Static Standing Balance Ability Poor Dynamic Standing Balance Ability Poor Device Used FWW M5 PT-IP Objective Assessments Start: 03/15/24 15:22 Freq: NEEDED Status: Active Protocol: Document 03/15/24 13:40 AB (Rec: 03/15/24 15:38 AB [id number]) Orientation Orientation/Cognition Level of Alertness Alert Orientation Name,Place,Situation Language Function Ability Hard of Hearing Safety Awareness Decreased Safety Awareness Memory Description Short Term Impaired Gross Range of Motion Lower Extremity ROM Assessment Within Functional Limits Strength Lower Extremity Strength Assessment Within Functional Limits Muscle Tone Muscle Tone WNL Yes M6 PT-IP Treatment Start: 03/15/24 15:22 Freq: NEEDED Status: Active Protocol: Document 03/15/24 13:40 AB (Rec: 03/15/24 15:38 AB [id number]) Physical Therapy Treatment Education Education Provided Precautions,Post-Op Packet, Safety M7 PT-IP Assessment and Plan Start: 03/15/24 15:22 Freq: NEEDED Status: Active Protocol: Document 03/15/24 13:40 AB (Rec: 03/15/24 15:38 AB [id number]) PT Summary Assessment and Plan Potential Rehabilitation Potential Fair Status of Condition at Evaluation Evolving Summary Impairments Pain,ROM,Strength,Balance, Coordination,Sensation,Tone, Cognition,Bed Mobility, Transfers,Gait,Activity Tolerance Assessment Summary pt is an 84 y/o M with SBA and incarcerated ventral hernia s/p ex-lap. pt also has UTI. pt with abdominal precautions. pt requiring max A with all mobilities and ambulation using FWW mod to max A and max cues and only tolerated ~ 20 ft of walking. pt with decrease activity tolerance affecting mobility. pt currently on 7L/min of O2. d/c plan depending on progress but at this time will require SNF rehab. will continue to assess. Goals Bed Mobility Goal Minimal Assistance Transfer Goal Minimal Assistance,Front Wheeled Walker Gait Goal Minimal Assistance,Front Wheel Walker Gait Distance 100 Other Goals improve bed mobility, transfers, ambulation using 4WW 200 ft mod I Days to Meet Goals 10 Frequency of Treatment Frequency Of Treatment Once a Day Treatment Plan Physical Therapy Treatment Plan Bed Mobility Training,Transfer Training,Gait Training, Therapeutic Exercise,Balance Retraining,Post Op Education, Discharge Planning,Hot or Cold Pack,Neuromuscular Re-ed, Coordination Retraining,Manual Therapy Precautions Abdominal Surgery Precautions Log Roll,Lifting Restrictions, Gait Belt above Incisional Area Recommendations To Nursing Amount of Assist Needed 1 Person Assist Discharge Recommendations PT Discharge Recommendations Home with 04/12 Assist Available,Home Health,SNF Rehab,Home vs SNF Transportation Needs at Discharge Private Vehicle,Wheelchair/ Cabulance
[2024-03-15] MEDS: HYDROCODONE/ACET 5/325 TABLET 1 TAB PO ×2 (17:00→20:38)
--- NOTE | 2024-03-15 17:39 | PC.NURSE ---
Shift Note: Pt ambulating with 1p assist, taking small bites of general diet without nausea, pain relieved with po pain meds. O2 Sats maintained >93 on high flow nasal cannula 5L/min. Abd dressing dry and intact, abdominal binder in place. Dominguez cath draining clear yellow urine.
[2024-03-15] MEDS: APIXABAN 5 MG TABLET 2.5 MG PO (20:31)
[2024-03-16] VITALS (45 sets, daily range): BP systolic 92–145; BP diastolic 55–67; PULSE 67–109; RESP 0–37; TEMP 36.1–36.9; O2SAT 90–100
[2024-03-16] MEDS: HYDROCODONE/ACET 5/325 TABLET 1 TAB PO ×2 (00:09→09:10)
[2024-03-16] MEDS: SODIUM CHLORIDE 0.9% 1,000 ML 100 ML IV (01:47)
[2024-03-16] MEDS: MORPHINE 4 MG/ML INJ 2 MG IV (01:47)
[2024-03-16 04:33] LABS: Add Manual Diff / Slide Review NO; Basophils Absolute Auto 100 /uL (0-100); Basophils Percent Auto 1.2 % (0-2); Eosinophils Absolute Auto 200 /uL (0-450); Eosinophils Percent Auto 3.3 % (2-4); Hematocrit 24.7 % (41-53); Hemoglobin 8.1 g/dL (13.5-17.5); Lymphocytes Absolute Auto 700 /uL (1100-4500); Lymphocytes Percent Auto 11.8 % (25-40); Mean Corpuscular HGB Conc 32.9 % (30-36); Mean Corpuscular Hemoglobin 28.5 PG (26-34); Mean Corpuscular Volume 86.7 fL (80-100); Monocytes Absolute Auto 400 /uL (0-900); Monocytes Percent Auto 6.9 % (3-14); Neutrophils Absolute Auto 4500 /uL (1500-7000); Neutrophils Percent Auto 76.8 % (50-75); Platelet Count 81 X10^3/uL (150-400); Red Blood Cell Count 2.85 X10^6/uL (4.5-5.9); Red Cell Distribution Width 19.8 % (11.6-14.8); White Blood Cell Count 5.9 X10^3/uL (4.5-11.0)
[2024-03-16 04:55] LABS: Blood Urea Nitrogen 26 mg/dL (9-20); Calcium 7.9 mg/dL (8.4-10.2); Carbon Dioxide 27 mmol/L (22-32); Chloride 109 mmol/L (98-107); Estimated Glomerular Filt Rate > 60 mL/min (>60); Glucose 109 mg/dL (80-110); HEMOLYSIS < 15 (0-50); Potassium 4.2 mmol/L (3.4-5.1); Sodium 139 mmol/L (137-145)
[2024-03-16] MEDS: LEVOTHYROXINE 50 MCG TABLET 150 MCG PO (07:54)
[2024-03-16] MEDS: APIXABAN 5 MG TABLET 2.5 MG PO (08:37)
[2024-03-16] MEDS: ATORVASTATIN 20 MG TABLET 80 MG PO (08:37)
[2024-03-16] MEDS: GABAPENTIN 600 MG TABLET PO ×2 (08:38→21:08)
[2024-03-16] MEDS: METOPROLOL IR 25 MG TABLET 37.5 MG PO ×2 (08:40→21:08)
[2024-03-16] MEDS: DOXYCYCLINE HYCLATE 100 MG TABLET PO ×2 (08:42→21:08)
--- NOTE | 2024-03-16 09:42 | PM.PN.1 ---
Subjective Subjective Date Patient Seen: 03/16/24 Time Patient Seen: 09:42 Interval history: Indra feels well today He has tolerated his diet so far Exam Vital Signs (past 8 hours): - 03/16/24 02:00 03/16/24 02:00 03/16/24 02:00 Temperature Pulse Rate 82 79 Respiratory Rate 26 H 16 Blood Pressure 99/55 L Pulse Oximetry 100 98 Oxygen Delivery Method Oxygen Flow Rate 03/16/24 02:01 03/16/24 02:01 03/16/24 02:30 Temperature Pulse Rate 81 81 Respiratory Rate 16 13 Blood Pressure 92/55 L Pulse Oximetry 99 98 Oxygen Delivery Method Oxygen Flow Rate 03/16/24 03:00 03/16/24 03:00 03/16/24 03:30 Temperature Pulse Rate 83 77 Respiratory Rate 12 13 Blood Pressure 117/56 L Pulse Oximetry 98 100 Oxygen Delivery Method Oxygen Flow Rate 03/16/24 04:00 03/16/24 04:00 03/16/24 04:30 Temperature Pulse Rate 81 74 Respiratory Rate 11 L 12 Blood Pressure 141/62 H Pulse Oximetry 100 100 Oxygen Delivery Method Oxygen Flow Rate 03/16/24 05:00 03/16/24 05:00 03/16/24 05:30 Temperature Pulse Rate 81 83 Respiratory Rate 12 13 Blood Pressure 122/57 L Pulse Oximetry 100 100 Oxygen Delivery Method Oxygen Flow Rate 03/16/24 06:00 03/16/24 06:00 03/16/24 06:30 Temperature Pulse Rate 84 80 Respiratory Rate 12 12 Blood Pressure 145/67 H Pulse Oximetry 100 100 Oxygen Delivery Method Oxygen Flow Rate 03/16/24 07:00 03/16/24 07:00 03/16/24 07:00 Temperature Pulse Rate 78 Respiratory Rate 13 Blood Pressure 128/58 L Pulse Oximetry 100 Oxygen Delivery Method High Flow Nasal Cannula Oxygen Flow Rate 03/16/24 07:30 03/16/24 07:54 03/16/24 07:54 Temperature Pulse Rate 86 81 Respiratory Rate 11 L 13 Blood Pressure 143/65 H Pulse Oximetry 100 100 Oxygen Delivery Method Oxygen Flow Rate 03/16/24 08:26 03/16/24 09:01 Temperature 97.4 F L Pulse Rate Respiratory Rate Blood Pressure Pulse Oximetry 97 Oxygen Delivery Method Nasal Cannula Oxygen Flow Rate 2 Oxygen Delivery Method Nasal Cannula Oxygen Flow Rate 2 Narrative Exam Narrative: Abdomen is soft Incisions are clean dry and intact Objective Labs 03/16/24 04:15 03/16/24 04:15 Labs: Laboratory Results - last 24 hr 03/16/24 04:15 WBC 5.9 RBC 2.85 L Hgb 8.1 L Hct 24.7 L MCV 86.7 MCH 28.5 MCHC 32.9 RDW 19.8 H Plt Count 81 L Neut % (Auto) 76.8 H Lymph % (Auto) 11.8 L [place] % (Auto) 6.9 Eos % (Auto) 3.3 Baso % (Auto) 1.2 Neut # (Auto) 4500 Lymph # (Auto) 700 L [place] # (Auto) 400 Eos # (Auto) 200 Baso # (Auto) 100 Sodium 139 Potassium 4.2 Chloride 109 H Carbon Dioxide 27 BUN 26 H Creatinine 1.18 Estimated GFR > 60 BUN/Creatinine Ratio 22.0 Glucose 109 Calcium 7.9 L PFSH Medical History Asthma Pulmonary nodule Emphysema lung Ectopic atrial tachycardia Aortic stenosis Essential hypertension Prediabetes Surgical History History of lumbar fusion Family History Mother No pertinent past medical history Father No pertinent past medical history Social History household members: spouse Smoking Status: Former smoker Tobacco: How many years used: 50 alcohol intake: current substance use type: does not use Assessment & Plan Assessment and plan (1) Incarcerated ventral hernia: Status: Acute Plan Okay to discharge home from a surgical standpoint Time-Based Coding :: [TOTAL MINUTES] spent with patient and on the chart (including review of chart, obtaining history, exam, reviewing outside data, placing orders, documenting exam and treatment plan, and counseling patient) on [DATE].
--- NOTE | 2024-03-16 10:05 | PT.IPTN ---
Current Diagnoses Hypothyroidism, unspecified (03/14/24) Hyperlipidemia, unspecified (03/14/24) Unspecified atrial fibrillation (03/14/24) Mild intermittent asthma, uncomplicated (03/14/24) Other and unspecified ventral hernia with obstruction, without gangrene (03/14/24) Unspecified intestinal obstruction, unspecified as to partial versus complete obstruction (03/14/24) Urinary tract infection, site not specified (03/14/24) USP (current) use of anticoagulants (03/14/24) Surgery Performed Operation Date: 03/14/24 06:30 Actual Procedures p Exploratory Laparotomy GEN Renny Tijerina MD Physical Therapy Treatment Note M2 PT-IP Current Condition Start: 03/15/24 15:22 Freq: NEEDED Status: Active Protocol: Document 03/15/24 13:40 AB (Rec: 03/15/24 15:38 AB [id number]) Physical Therapy Current Condition Current Condition Evaluation Date 03/15/24 Treatment Diagnosis SBO; incarcerated ventral hernia s/p ex-lap; UTI; difficulty in walking Onset Date 03/14/24 M3 PT-IP Subjective Start: 03/15/24 15:22 Freq: NEEDED Status: Active Protocol: Document 03/16/24 10:19 KS (Rec: 03/16/24 10:30 KS [id number]) Subjective Physical Therapy Visit Type Type Treatment Note Visit Start Time 09:40 Visit Stop Time 10:05 Number of BREASTER Visits 1 Physical Therapy Visit Comments Patient Comments agreeable to do PT Therapy Pain Assessment Pain When Pain Assessed During Mobility Pain Present Pain Present Pain Reported Location abdomen Scale Used pain scale not stated; increases with movement Pain Management Techniques Re-positioning,Timing of Activity with Medications M4 PT-IP Mobility and Gait Start: 03/15/24 15:22 Freq: NEEDED Status: Active Protocol: Document 03/16/24 10:19 KS (Rec: 03/16/24 10:30 KS [id number]) PT-Bed Mobility Assessment Rolling Type of Rolling Log Rolling Level of Assist Maximal Assistance Supine to Sit Supine to Sit Maximum Assistance,Head of Bed Elevated,Bedrails PT-Transfer Assessment Sit to and From Stand Sit to and from Stand Contact Guard Assistance,1 Person Assistance,Use of Upper Extremities Equipment Transfer Assistive Device Gait Belt,Front Wheeled Walker Orthotic/Prosthetic Devices or Brace: No Transfers Transfer Destination Chair Transfer Technique ambulated Transfer Ability Level of Assist Minimal Assistance,2 Person Assistance,Use of Upper Extremities Comments Mobility Comments Pt in bd upon arrival, eager to get into his chair. Pt needs reminders for proper logroll technique and initially having pain due to twisting. Max A for logroll and sup<>sit. CGA for sit<> stand w/ FWW. Pt on 2Lo2 decreased to mid 80s during sup<>sit, so increased to 3L for transfer. Pt stood for ~2 min before ambulating 6 fit to chair. Cue for slow descent and hand placement for stand> sit. Pts monitor reading a-fib , pt left w/ RN. O2 back at 2L and 94%. Gait Assessment Gait Gait Assistance Required: Contact Guard Assist,1 Person Assist Distance (Feet) 6 Able to Maintain Weight Bearing Status Yes During Gait Assistive Devices Assistive Device Gait Belt,Front Wheeled Walker Orthotic/Prosthetic Devices or Brace: No Gait Deviations General Gait Pattern Decreased Stride Length, Decreased Feet Clearance,Step- to Gait Factors Limiting Gait Function Factors Limiting Gait Function Decreased Activity Tolerance, Decreased Strength,Difficulty Following Directions,Limited Range of Motion,Pain,Poor Balance,Poor Safety Awareness, Respiratory Distress PT-Balance Assessment Sitting Balance and Reactions Static Sitting Balance Ability Good Dynamic Sitting Balance Ability Fair Standing Balance and Reactions Static Standing Balance Ability Fair Dynamic Standing Balance Ability Fair Device Used FWW M5 PT-IP Objective Assessments Start: 03/15/24 15:22 Freq: NEEDED Status: Active Protocol: Document 03/15/24 13:40 AB (Rec: 03/15/24 15:38 AB [id number]) Orientation Orientation/Cognition Level of Alertness Alert Orientation Name,Place,Situation Language Function Ability Hard of Hearing Safety Awareness Decreased Safety Awareness Memory Description Short Term Impaired Gross Range of Motion Lower Extremity ROM Assessment Within Functional Limits Strength Lower Extremity Strength Assessment Within Functional Limits Muscle Tone Muscle Tone WNL Yes M6 PT-IP Treatment Start: 03/15/24 15:22 Freq: NEEDED Status: Active Protocol: Document 03/16/24 10:19 KS (Rec: 03/16/24 10:30 KS [id number]) Physical Therapy Treatment Education Education Provided Precautions,Post-Op Packet, Safety M7 PT-IP Assessment and Plan Start: 03/15/24 15:22 Freq: NEEDED Status: Active Protocol: Document 03/16/24 10:19 KS (Rec: 03/16/24 10:30 DE [id number]) PT Summary Assessment and Plan Potential Rehabilitation Potential Fair Summary Impairments Pain,ROM,Strength,Balance, Coordination,Sensation,Tone, Cognition,Bed Mobility, Transfers,Gait,Activity Tolerance Progress Towards Goals Slow Progress due to Pain,Slow Progress due to Medical Issues,Slow Progress due to Activity Tolerance Assessment Summary Pt still requiring Max A and cues for logroll and bed mobility, but only CGA for sit <>Stand and Min A for transfer from bed to chair mainly for FWW cues and safety. Pt able to stand for 2 min on 3L and decreased back to 2L after mobility. Will continue to assess progress, due to high assist needed for bed mobility , pt will likely require SNF at d/c. Goals Bed Mobility Goal Minimal Assistance Transfer Goal Minimal Assistance,Front Wheeled Walker Gait Goal Minimal Assistance,Front Wheel Walker Gait Distance 100 Other Goals improve bed mobility, transfers, ambulation using 4WW 200 ft mod I Days to Meet Goals 10 Frequency of Treatment Frequency Of Treatment Once a Day Treatment Plan Physical Therapy Treatment Plan Bed Mobility Training,Transfer Training,Gait Training, Therapeutic Exercise,Balance Retraining,Post Op Education, Discharge Planning,Hot or Cold Pack,Neuromuscular Re-ed, Coordination Retraining,Manual Therapy Precautions Abdominal Surgery Precautions Log Roll,Lifting Restrictions, Gait Belt above Incisional Area Recommendations To Nursing Amount of Assist Needed 1 Person Assist Discharge Recommendations PT Discharge Recommendations Home with 04/12 Assist Available,Home Health,SNF Rehab,Home vs SNF Transportation Needs at Discharge Private Vehicle,Wheelchair/ Cabulance
--- NOTE | 2024-03-16 10:54 | P.PN_ITS ---
Subjective Subjective Date Patient Seen: 03/16/24 Time Patient Seen: 08:00 Interval history: Narrative: 84 y/o with PMH of CAD, PAF, asthma, HTN, HLD, hypothyroisidm,s/p AAA repair, s/p TEAVR, recent endovascular aortic graft repair at , who presented with abdominal pain while on treatment with Bactrim for Klebsiella UTI. Workup showing incarcerated ventral hernia. After consultation with surgery, he had NGT for decompression, IV abx for UTI and he was placed in observation, NPO and off Eliquis. Interval history: The patient was taken to the operating room and underwent exploratory laparotomy with finding of incarcerated small bowel within an umbilical hernia with viable bowel, and underwent reduction and repair of the umbilical hernia. He was transferred to the ICU. He was significantly hypoxic and tachycardia with atrial fibrillation in the 140s. He is awake, stating he is very thirsty and feels dry. He and his note that he threw up multiple times yesterday, and feel that some may have been aspirated. Interval history: The patient reports feeling better. He has been advanced to a general diet. He continues to feel mild shortness of breath with exertion. He notes chronic right leg pain that he states is due to sciatica. He has had an unrevealing vascular evaluation in the past, noting that he was found to have decreased pulses on exam yesterday in the right foot. Arterial ultrasound study was unremarkable. He requests to resume his routine tramadol Exam Vital Signs (past 8 hours): - 03/16/24 03:00 03/16/24 03:00 03/16/24 03:30 Temperature Pulse Rate 83 77 Respiratory Rate 12 13 Blood Pressure 117/56 L Pulse Oximetry 98 100 Oxygen Delivery Method Oxygen Flow Rate 03/16/24 04:00 03/16/24 04:00 03/16/24 04:30 Temperature Pulse Rate 81 74 Respiratory Rate 11 L 12 Blood Pressure 141/62 H Pulse Oximetry 100 100 Oxygen Delivery Method Oxygen Flow Rate 03/16/24 05:00 03/16/24 05:00 03/16/24 05:30 Temperature Pulse Rate 81 83 Respiratory Rate 12 13 Blood Pressure 122/57 L Pulse Oximetry 100 100 Oxygen Delivery Method Oxygen Flow Rate 03/16/24 06:00 03/16/24 06:00 11/03/24 06:30 Temperature Pulse Rate 84 80 Respiratory Rate 12 12 Blood Pressure 145/67 H Pulse Oximetry 100 100 Oxygen Delivery Method Oxygen Flow Rate 03/16/24 07:00 03/16/24 07:00 03/16/24 07:00 Temperature Pulse Rate 78 Respiratory Rate 13 Blood Pressure 128/58 L Pulse Oximetry 100 Oxygen Delivery Method High Flow Nasal Cannula Oxygen Flow Rate 03/16/24 07:30 03/16/24 07:54 03/16/24 07:54 Temperature Pulse Rate 86 81 Respiratory Rate 11 L 13 Blood Pressure 143/65 H Pulse Oximetry 100 100 Oxygen Delivery Method Oxygen Flow Rate 03/16/24 08:26 03/16/24 09:01 Temperature 97.4 F L Pulse Rate Respiratory Rate Blood Pressure Pulse Oximetry 97 Oxygen Delivery Method Nasal Cannula Oxygen Flow Rate 2 Oxygen Delivery Method Nasal Cannula Oxygen Flow Rate 2 Narrative Exam Narrative: GENERAL: This is a well-nourished, well-developed patient, in no apparent distress, with 2 [address] cannula in place EYES: Pupils equal round and reactive. Extraocular motions intact. No scleral icterus. No injection or drainage. ENT: Mucous membranes pink and moist. NECK: Supple, nontender, no meningeal signs. CARDIOVASCULAR: Irregularly irregular, tachycardic. RESPIRATORY: Clear to auscultation, but with vigorous rhonchi when coughing per nursing GASTROINTESTINAL: Abdomen soft, non-tender, nondistended. Bandage in place, clean, dry and intact. Dominguez catheter in place. EXTREMITIES: No edema. right foot with mild mottling, red DP pulse 1 +. NEUROLOGIC: Alert, oriented, speech fluent, full upper and lower motor strength, no focal deficits evident. DERMATOLOGIC: No rashes or skin lesions. Objective Imaging Right lower extremity vascular ultrasound 03/15/2024: New: Radiologist's impression: No hemodynamically significant arterial stenosis in the right lower extremity. Labs 03/16/24 04:15 03/16/24 04:15 Labs: Laboratory Results - last 24 hr 03/16/24 04:15 WBC 5.9 RBC 2.85 L Hgb 8.1 L Hct 24.7 L MCV 86.7 MCH 28.5 MCHC 32.9 RDW 19.8 H Plt Count 81 L Neut % (Auto) 76.8 H Lymph % (Auto) 11.8 L [place] % (Auto) 6.9 Eos % (Auto) 3.3 Baso % (Auto) 1.2 Neut # (Auto) 4500 Lymph # (Auto) 700 L [place] # (Auto) 400 Eos # (Auto) 200 Baso # (Auto) 100 Sodium 139 Potassium 4.2 Chloride 109 H Carbon Dioxide 27 BUN 26 H Creatinine 1.18 Estimated GFR > 60 BUN/Creatinine Ratio 22.0 Glucose 109 Calcium 7.9 L PFSH Medical History Asthma Pulmonary nodule Emphysema lung Ectopic atrial tachycardia Aortic stenosis Essential hypertension Prediabetes Surgical History History of lumbar fusion Family History Mother No pertinent past medical history Father No pertinent past medical history Social History household members: spouse Smoking Status: Former smoker Tobacco: How many years used: 50 alcohol intake: current substance use type: does not use Assessment & Plan Assessment & Plan narrative: 1. Umbilical Hernia / Bowel Obstruction - incarcerated, status post repair 03/14/2024, doing well - advance diet per surgery 2. Aspiration pneumonia. -treat with pral doxycycline (noting multiple drug allergies) through 03/20 4. Acute hypoxemic respiratory failure due to 2 -continue supplemental oxygen, improving daily 5. UTI -urinalysis unremarkable, appears treated 4. Atrial fibrillation with with rapid ventricular response, likely due to volume depletion/ Anticoagulated -continue home metoprolol dosing -Last Eliquis on 03/13, restarted 03/15 5. Hx of , s/p AAA graft repair, HTN, CAD - s/p transendovascular AVR TEAVR - follows with cardiology - ASA, statin, metoprolol, amlodipine and ELIQUIS on hold - telemetry monitoring, IV BB prn for BP / rate control 6. Chronic kidney disease, stage III, stable 7. 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 -monitor 8. Urinary retention. -DC Dominguez catheter, attempt a voiding trial today 9. Corynebacterium in blood culture, likely contaminant -no treatment indicated 10. Code status: Full code. Defined on admission in discussion with patient. The patient is admitted inpatient status and will require at least 2 midnights of inpatient level care. MICHAEL 03/17/2024 PROFEE Charge codes Subsequent inpatient/observation care: [id number]
[2024-03-16] MEDS: SODIUM CHLORIDE 0.9% FLUSH 10 ML IV ×2 (12:37→21:08)
[2024-03-16] MEDS: TRAMADOL 50 MG TABLET PO ×2 (12:40→21:08)
[2024-03-16] MEDS: TAMSULOSIN 0.4 MG CAPSULE PO (12:40)
--- NOTE | 2024-03-16 13:08 | CM.DPNOTE ---
DCP note [employer] reviewed EMR. Per hospitalist in morning rounds, plan to wean off O2 throughout day. currently 2ltr nasal cannula. dc [place]. Potential dc home tomorrow. advancing diet today. PT=SNF vs home with assistance vs HH. Per RN, able to ambulate with nursing, see RN note for more. P: anticipate home with spouse when medically stable, MICHAEL 03/17. CM team will f/u if pt changed mind about HH and place referrals as necessary. NINA Wynn
--- NOTE | 2024-03-16 16:42 | PC.NURSE ---
1600 Bladder scan result - 127ml - encouraged pt to increase PO intake
[2024-03-16] MEDS: DOCUSATE 100 MG CAPSULE PO (17:56)
[2024-03-16] MEDS: SODIUM CHLORIDE NASAL SPRAY 1 SPRAY NASAL (18:15)
[2024-03-16] MEDS: APIXABAN 5 MG TABLET PO (21:08)
[2024-03-17] VITALS: BP 124/65; PULSE 90; TEMP 36.4; O2SAT 93
[2024-03-17] MEDS: HYDROCODONE/ACET 5/325 TABLET 1 TAB PO ×2 (00:07→10:19)
[2024-03-17 04:00] VITALS: BP 145/70; PULSE 77; RESP 20; TEMP 36.4; O2SAT 96
[2024-03-17 04:31] LABS: Add Manual Diff / Slide Review NO; Basophils Absolute Auto 0 /uL (0-100); Basophils Percent Auto 0.5 % (0-2); Eosinophils Absolute Auto 200 /uL (0-450); Eosinophils Percent Auto 3.8 % (2-4); Hematocrit 25.5 % (41-53); Hemoglobin 8.3 g/dL (13.5-17.5); Lymphocytes Absolute Auto 1000 /uL (1100-4500); Lymphocytes Percent Auto 15.9 % (25-40); Mean Corpuscular HGB Conc 32.6 % (30-36); Mean Corpuscular Hemoglobin 28.5 PG (26-34); Mean Corpuscular Volume 87.3 fL (80-100); Monocytes Absolute Auto 300 /uL (0-900); Monocytes Percent Auto 4.9 % (3-14); Neutrophils Absolute Auto 4600 /uL (1500-7000); Neutrophils Percent Auto 74.9 % (50-75); Platelet Count 91 X10^3/uL (150-400); Red Blood Cell Count 2.92 X10^6/uL (4.5-5.9); Red Cell Distribution Width 19.1 % (11.6-14.8); White Blood Cell Count 6.2 X10^3/uL (4.5-11.0)
[2024-03-17 04:43] LABS: BUN Creatinine Ratio 23.7 (6-22); Blood Urea Nitrogen 23 mg/dL (9-20); Calcium 8.3 mg/dL (8.4-10.2); Carbon Dioxide 24 mmol/L (22-32); Chloride 107 mmol/L (98-107); Estimated Glomerular Filt Rate > 60 mL/min (>60); Glucose 108 mg/dL (80-110); HEMOLYSIS < 15 (0-50); Potassium 3.8 mmol/L (3.4-5.1); Sodium 135 mmol/L (137-145)
[2024-03-17] MEDS: LEVOTHYROXINE 50 MCG TABLET 150 MCG PO (06:20)
[2024-03-17 08:00] VITALS: BP 146/72; PULSE 80; RESP 18; TEMP 36.2; O2SAT 94
[2024-03-17] MEDS: TAMSULOSIN 0.4 MG CAPSULE PO (08:35)
[2024-03-17] MEDS: APIXABAN 5 MG TABLET PO (08:35)
[2024-03-17] MEDS: SODIUM CHLORIDE 0.9% FLUSH 10 ML IV (08:36)
[2024-03-17] MEDS: GABAPENTIN 600 MG TABLET PO (08:36)
[2024-03-17] MEDS: ATORVASTATIN 20 MG TABLET 80 MG PO (08:36)
[2024-03-17] MEDS: DOXYCYCLINE HYCLATE 100 MG TABLET PO (08:36)
[2024-03-17] MEDS: METOPROLOL IR 25 MG TABLET 37.5 MG PO (08:36)
--- NOTE | 2024-03-17 08:43 | PM.DS.1 ---
History of Present Illness History of Present Illness Date Patient Seen: 03/17/24 Time Patient Seen: 08:43 Date of Onset of Symptoms: 03/14/24 Chief complaint: abd pain t-1 Narrative: Per admitting provider, Narrative: 84 y/o with PMH of CAD, PAF, asthma, HTN, HLD, hypothyroisidm,s/p AAA repair, s/p TEAVR, recent endovascular aortic graft repair at , who presented with abdominal pain while on treatment with Bactrim for Klebsiella UTI. Workup showing incarcerated ventral hernia. After consultation with surgery, he had NGT for decompression, IV abx for UTI and he was placed in observation, NPO and off Eliquis. Interval history: The patient was taken to the operating room and underwent exploratory laparotomy with finding of incarcerated small bowel within an umbilical hernia with viable bowel, and underwent reduction and repair of the umbilical hernia. He was transferred to the ICU. He was significantly hypoxic and tachycardia with atrial fibrillation in the 140s. He is awake, stating he is very thirsty and feels dry. He and his note that he threw up multiple times yesterday, and feel that some may have been aspirated. Discharge Providers Provider Date of admission: 03/14/24 02:54 Discharge Date: 03/17/24 Primary care physician: Vee Chun MD Consults: 03/15/24 11:28 Consult to Occupational Therapy Evaluate & Treat Comment: Physician Instructions: Evaluate and treat Consult to Physical Therapy Evaluate & Treat Comment: Physician Instructions: Evaluate and Treat Discharge provider: Tavo Carmen DO Summary Hospital Course Discharge Diagnosis: 1. Umbilical Hernia / Bowel Obstruction, present on admission 2. Aspiration pneumonia, not present on admission. 4. Acute hypoxemic respiratory failure due to 2 5. UTI 4. Atrial fibrillation with with rapid ventricular response, likely due to volume depletion/ Anticoagulated 5. Hx of , s/p AAA graft repair, HTN, CAD 6. Chronic kidney disease, stage III, stable 7. 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 8. Urinary retention, resolved 9. Corynebacterium in blood culture, likely contaminant Hospital Course: This is an 84-year-old male with a past medical history atrial fibrillation, aortic stenosis, hypertension, CAD, CKD who was admitted with an acute bowel obstruction secondary to an incarcerated umbilical hernia. He underwent surgical repair on 03/14 with General surgery. He likely had an aspiration pneumonia on admission, after surgery he was hypoxic, in afib with RVR. He initially required supplemental oxygen but this was able to be weaned prior to discharge. Afib with RVR improved with fluid resuscitation and resumption of his home metoprolol. On admission he was also noted to have a UTI but this was adequately treated with antibiotics. Aspiration was treated only with doxycycline, but given resolution of his hypoxia and improvement this was not continued on discharge. He did well following his incarcerated hernia repair with surgery and his diet was advanced, which the patient tolerated at the time of discharge. His home blood pressure medications and blood thinner was restarted at the time of discharge. Also of note 1 of 4 blood cultures on admission were positive for Corynebacterium, which likely represents a contaminant, though he was treated with the above antibiotics. He did well after surgery as noted above, and was able to be discharged home. Time Spent with Patient Time spent: Greater than 30 minutes Exam Vital Signs (past 8 hours): - 03/17/24 04:00 Temperature 97.6 F Pulse Rate 77 Respiratory Rate 20 Blood Pressure 145/70 H Pulse Oximetry 96 Oxygen Flow Rate 1 Fraction of Inspired Oxygen 24 Oxygen Delivery Method Nasal Cannula Oxygen Flow Rate 1 Narrative Exam Narrative: GENERAL: This is a well-nourished, well-developed patient, in no apparent distress, with 2 L nasal cannula in place EYES: Pupils equal round and reactive. Extraocular motions intact. No scleral icterus. No injection or drainage. ENT: Mucous membranes pink and moist. NECK: Supple, nontender, no meningeal signs. CARDIOVASCULAR: Irregularly irregular, tachycardic. RESPIRATORY: Clear to auscultation, but with vigorous rhonchi when coughing per nursing GASTROINTESTINAL: Abdomen soft, non-tender, nondistended. Bandage in place, clean, dry and intact. Dominguez catheter in place. EXTREMITIES: No edema. right foot with mild mottling, red DP pulse 1 +. NEUROLOGIC: Alert, oriented, speech fluent, full upper and lower motor strength, no focal deficits evident. DERMATOLOGIC: No rashes or skin lesions. Objective Labs 03/17/24 04:08 03/17/24 04:08 Labs: Laboratory Results - last 24 hr 03/17/24 04:08 WBC 6.2 RBC 2.92 L Hgb 8.3 L Hct 25.5 L MCV 87.3 MCH 28.5 MCHC 32.6 RDW 19.1 H Plt Count 91 L Neut % (Auto) 74.9 Lymph % (Auto) 15.9 L [place] % (Auto) 4.9 Eos % (Auto) 3.8 Baso % (Auto) 0.5 Neut # (Auto) 4600 Lymph # (Auto) 1000 L [place] # (Auto) 300 Eos # (Auto) 200 Baso # (Auto) 0 Sodium 135 L Potassium 3.8 Chloride 107 Carbon Dioxide 24 BUN 23 H Creatinine 0.97 Estimated GFR > 60 BUN/Creatinine Ratio 23.7 H Glucose 108 Calcium 8.3 L PFSH Medical History Asthma Pulmonary nodule Emphysema lung Ectopic atrial tachycardia Aortic stenosis Essential hypertension Prediabetes Surgical History History of lumbar fusion Family History Mother No pertinent past medical history Father No pertinent past medical history Social History household members: spouse Smoking Status: Former smoker Tobacco: How many years used: 50 alcohol intake: current substance use type: does not use Discharge Plan Discharge Plan Patient Disposition: Home Provider Discharge Comment: You were admitted to the hospital with a bowel obstruction which required surgery. You are doing well after surgery. You were started on medications for possible prostate enlargement, however please revisit this with your PCP as sometimes these can also be caused by medications and your surgery so you may not need to continue this medication [facility]. Continue OTC laxitive therapies such as miralax, dulcolax, or senna at home until no longer on opiates. You can take multiple of these medications at the same time safely. If you continue to have difficulty with bowel movements or develop nausea/vomiting you can return to an ER or try to contact the surgery clinic depending on your symptoms. Discharge orders & Medications Prescriptions: New tamsulosin [Flomax] 0.4 mg Capsule 0.4 mg PO DAILY 30 Days Qty: 30 0RF hydrocodone-acetaminophen 5-325 mg tablet 1 tab PO Q6H PRN (Reason: pain) 8 Days Qty: 30 0RF Continued methocarbamol 500 mg tablet 500 mg PO BID PRN (Reason: Muscle Spasticity) gabapentin 300 mg capsule 600 mg PO BID metoprolol tartrate 25 mg tablet 37.5 mg PO BID tramadol 50 mg Tablet 50 mg PO BID PRN (Reason: Pain (Scale Score 1-3)) acetaminophen 500 mg Tablet 500 mg PO Q6H PRN (Reason: Pain (Scale Score 1-3)) ferrous sulfate [iron] 325 mg (65 mg iron) Tablet 65 mg PO DAILY levothyroxine 150 mcg Tablet 150 mcg PO DAILY rosuvastatin 40 mg Tablet 40 mg PO DAILY Eliquis 5 mg Tablet 5 mg PO BID Qty: 60 0RF amlodipine 5 mg tablet 5 mg PO QDAY Follow up/Referrals: Vee Chun MD [Primary Care Provider] - Diet/Activity/Treatments Diet: Diet as Tolerated and Regular Activity: As tolerated, no heavy lifting until surgical follow up (15lbs max) Skin/Wound/Dressing Care Dressing: okay to shower, no scrubbing. Visit Report/Discharge Packet Instructions: Constipation, How to Prevent Falls, [facility]: Wound Care Stand Alone Forms: Patient Portal/API, Stroke Signs & Symptoms Discharge Data Primary Care Provider: Vee Chun
[2024-03-17] MEDS: polyethylene glycoL 3350 17 GM POWD.PACK PO (08:58)
--- NOTE | 2024-03-17 09:38 | CM.DPC ---
DCP Discharge Home Per MD, pt is off oxygen and medically stable to d/c home today and no identified barriers to discharge. Per RN, giving pt bowel meds this morning towards bm prior to d/c or to help for once he gets home. Per PT, recommending likely home with spouse assist and HH. SW met bedside with pt and explained role and he confirms that he used HH before and felt that it was a waste of time. SW discussed either trying a different HH agency vs outpt PT. Pt states he did not appreciate not having a consistent schedule or staff with HH and therefore his preference is outpt PT so he can schedule the same day and time weekly. SW provided the outpt PT clinics for [facility] and surrounding areas and pt very appreciative. Spouse will be bedside before lunch time to provide transport home today. NINA Romo
--- NOTE | 2024-03-17 12:13 | PC.NURSE ---
Pt and spouse agreeable to discharge. IV's discontinued, pressure held d/t blood thinner. Pt and spouse advised by this RN to keep dressing on sites for 2-4 hours to prevent rebleeding. Education provided to patient and spouse on stroke s/s, worsening symptoms, followup, diet, and new medications. Pt wheeled via w/c to private vehicle at approximately 1155.
== END 2024-03-17 11:55 | disposition home or self-care (01) | DRG 853 ==
LOC: ED 22:57 → AC 03-14 02:55 → ICU 03-14 09:22 → AC 03-14 10:36 → ICU 03-14 10:36
PROVIDERS: Internal Medicine; Surgery; Admitting Provider Internal Medicine; Emergency Provider Emergency Medicine; PCP Internal Medicine; Referring Provider Emergency Medicine; Visit Provider Internal Medicine
PROC: 0WQF0ZZ Repair Abdominal Wall, Open Approach (ICD-10-PCS; CPT 49000; principal; 2024-03-14 06:30)
DX: A41.9 Sepsis, unspecified organism (principal); J18.9 Pneumonia, unspecified organism; J69.0 Pneumonitis due to inhalation of food and vomit; J96.01 Acute respiratory failure with hypoxia; N39.0 Urinary tract infection, site not specified; K42.0 Umbilical hernia with obstruction, without gangrene; I48.91 Unspecified atrial fibrillation; J45.20 Mild intermittent asthma, uncomplicated; E03.9 Hypothyroidism, unspecified; E78.5 Hyperlipidemia, unspecified; I25.10 Atherosclerotic heart disease of native coronary artery without angina pectoris; N18.30 Chronic kidney disease, stage 3 unspecified; I12.9 Hypertensive chronic kidney disease with stage 1 through stage 4 chronic kidney disease, or unspecified chronic kidney disease; D63.1 Anemia in chronic kidney disease; N40.1 Benign prostatic hyperplasia with lower urinary tract symptoms; R33.8 Other retention of urine; E86.9 Volume depletion, unspecified; B96.89 Other specified bacterial agents as the cause of diseases classified elsewhere; Z98.890 Other specified postprocedural states; Z95.2 Presence of prosthetic heart valve; Z87.891 Personal history of nicotine dependence; Z79.01 Long term (current) use of anticoagulants
CPT/HCPCS: 36415; 71045; 74177; 80048; 80053; 81001; 82550; 83605; 83690; 83735; 83880; 84484; 85025; 85610; 85730; 87797; 93005; 93926; 94667; 94799; 96374; 96375; 96376; 97162; 97530; 99285; J1171; J1940; J2270; J2405; J3010; Q9967; S0039

== ENCOUNTER → 2024-05-23 10:45 | Outpatient (CLI) | payer MEDICARE, OTHER, SELFPAY ==
[2024-03-14 03:03] VITALS: BMI 25.1
--- NOTE | 2024-05-23 10:47 | DI.CT.S_ITS ---
PROCEDURE: CT CHEST WO CON INDICATIONS: Pulmonary Nodule TECHNIQUE: Noncontrast 5 mm thick sections acquired from the pulmonary apices to the posterior costophrenic angles. 1 mm lung window, 5 mm thick coronal and sagittal and 7 mm axial MIP reformats were then acquired. For radiation dose reduction, the following was used: automated exposure control, adjustment of mA and/or kV according to patient size. COMPARISON: [facility], CT, CT ANGIO CHEST ABDOMEN PELVIS, 01/04/2024, 12:39. [facility], CT, CT ABDOMEN PELVIS W CON, 03/13/2024, 23:07. [facility], CT, CT CHEST WO CON, 12/22/2020, 10:14. FINDINGS: Image quality: Diagnostic. Lungs and Pleura: Severe centrilobular and paraseptal emphysematous changes involving the upper lobes predominantly. There are small, dependently layering pleural effusions bilaterally, right greater than left, and irregular pleural thickening involving the upper lungs and fissures. Near complete interval resolution of of left apical lung mass with linear residual interstitial thickening. Focal subpleural fibrotic changes posteriorly in the right lower lobe, similar to prior. Minor bronchial wall thickening. Central airways are patent. Lower Neck: No enlarged lymph nodes. Thyroid: Normal CT appearance. Axillae: No enlarged lymph nodes. Chest Wall: No suspicious chest wall mass. Bones: No suspicious bone lesions. Mild degenerative changes in the thoracic spine. Heart: Heart is enlarged. Aortic valvuloplasty change. Moderate coronary artery calcification. No pericardial effusion. Thoracic Vessels: Thoracic aorta is normal caliber. There is a distal thoracic and upper abdominal aortic stent graft. Pulmonary arteries are enlarged bilaterally. Mediastinum and Harleen: Several borderline mediastinal lymph nodes, the largest in the pretracheal region measures 1.6 cm short axis, previously about 1.1 cm. Mild subcarinal adenopathy. Esophagus: No wall thickening. No hiatal hernia. Upper Abdomen: Left adrenal nodules are only partially visible. Right adrenal nodule is stable. Visible portions of upper abdominal organs are otherwise normal. IMPRESSION: Near complete resolution of spiculated left upper lobe lesion with residual interstitial thickening. This was likely infectious or inflammatory. Development of bilateral pleural effusions may be related to CHF given cardiomegaly. 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 Increased size of mediastinal lymph nodes without change in number, presumably reactive to infection or inflammation. Dictated by: Vandana Murray M.D. on 05/23/2024 at 14:31 Approved by: Vandana Murray M.D. on 05/23/2024 at 14:43
--- NOTE | 2024-05-23 10:47 | DI.MRI.S_ITS ---
PROCEDURE: MR LUMBAR SPINE WO CON INDICATIONS: LOW BACK PAIN TECHNIQUE: Noncontrast sagittal T1 spin echo and T2 fast echo, sagittal STIR, and T2 fast spin echo through the lumbar spine. In cases with scoliosis, additional coronal T2 fast spin echo may be performed. COMPARISON: [facility], CT, CT ANGIO CHEST ABDOMEN PELVIS, 01/04/2024, 12:39. [facility], MR, MR LUMBAR SPINE WO CON, 07/25/2022, 16:33. [facility], CT, CT ABDOMEN PELVIS W CON, 03/13/2024, 23:07. [facility], MR, MR LUMBAR SPINE WO CON, 05/05/2020, 11:02. FINDINGS: Image quality: There is artifact associated with the metallic hardware. Alignment and Curvature: Mild dextroconvex scoliotic curvature is seen. There is mild retrolisthesis seen at L1-L2 and L2-L3, with minimal anterolisthesis at L3-L4. Grade 1 anterolisthesis is seen at L4-L5. Mild retrolisthesis is seen at L5-S1. Bone Marrow: Marrow is of normal overall signal. No acute vertebral body compression fractures. Spinal Cord: Conus medullaris terminates at the L1 level. Visualized cord demonstrates normal signal and size. Paraspinous Soft Tissues: No paravertebral masses. There is susceptibility artifact associated with the aorta and the act stent graft. T12-L1: Mild loss of disc height is seen. Loss of disc signal is seen. Moderate generalized disc bulge is seen. No significant neural foraminal or central canal narrowing can be seen. Stable from the prior study. L1-L2: Mild loss of disc height is seen. Loss of disc signal is seen. Moderate generalized disc bulge is seen. There is a superimposed central disc protrusion. Moderate facet joint hypertrophy is seen. Moderate bilateral neural foraminal narrowing is seen. Mild to moderate central canal narrowing is seen. When comparison is made with the prior images, these findings are similar. L2-L3: The disc height is well-preserved. Loss of disc signal is seen at this level. Moderate generalized disc bulge is seen. There is a disc protrusion seen within the right subarticular/right foraminal region. Moderate facet joint hypertrophy is seen. There is moderate left-sided and at least moderate right-sided neural foraminal narrowing. There is a degree of compression seen upon the exiting right L2 nerve root. When comparison is made with the prior images, these findings are similar. L3-L4: Moderate to severe loss of disc height and disc signal can be seen. Reactive marrow endplate changes are seen, which are hyperintense on T1-weighted and T2-weighted imaging and most consistent with fatty metaplasia (Modic type II changes). Moderate generalized disc bulge is seen. There is moderate right-sided and moderate to severe left-sided facet hypertrophy seen. There is moderate to severe bilateral neural foraminal narrowing seen, with an associated degree of compression seen upon the exiting nerve roots. At least moderate central canal narrowing is seen, as on series 6, image 23. When comparison is made with the prior images, these findings are similar. L4-L5: Postoperative changes are seen at this level, with bilateral pedicle screws and vertical fixation rods. There has been removal of portions of the posterior elements. Moderate to severe loss of disc height and disc signal can be seen. Moderate disc bulge is seen, with a central disc extrusion, with superior migration of the disc material. Moderate facet joint hypertrophy is seen. There is moderate to severe left-sided and at least moderate right-sided neural foraminal narrowing. There is a degree of compression seen upon the exiting nerve roots. Moderate central canal narrowing is seen. When comparison is made with the prior images, these findings are similar. L5-S1: Moderate loss of disc height is seen. Loss of disc signal is seen. Reactive marrow endplate changes are seen which are hypointense on T1-weighted imaging and hyperintense on T2 weighted imaging, which is most consistent with edema (Modic type I changes). Moderate disc bulge is seen, which is eccentric to the right. Moderate to prominent facet hypertrophy is seen. Fluid is seen within the facet joints themselves. There is moderate to severe bilateral neural foraminal narrowing seen, with an associated degree of compression seen upon the exiting nerve roots. Moderate central canal narrowing is seen. These imaging findings have progressed compared to the prior study. IMPRESSION: Multiple levels of lumbar spine degenerative change can be seen, which are progressed at L5-S1. Otherwise, the degenerative changes appear similar to 2022. Postoperative fixation seen at L4-L5, as before. Dictated by: Brian Light M.D. on 05/26/2024 at 9:54 Approved by: Brian Light M.D. on 05/26/2024 at 10:02
== END ==
PROVIDERS: PCP Internal Medicine; Referring Provider Student in an Organized Health Care Education/Training Program; Visit Provider Student in an Organized Health Care Education/Training Program
DX: J90 Pleural effusion, not elsewhere classified (principal); J43.2 Centrilobular emphysema; R91.1 Solitary pulmonary nodule; I51.7 Cardiomegaly; R59.0 Localized enlarged lymph nodes; I25.10 Atherosclerotic heart disease of native coronary artery without angina pectoris; M47.814 Spondylosis without myelopathy or radiculopathy, thoracic region; M47.816 Spondylosis without myelopathy or radiculopathy, lumbar region; M47.817 Spondylosis without myelopathy or radiculopathy, lumbosacral region; M54.50 Low back pain, unspecified; Z98.1 Arthrodesis status
CPT/HCPCS: 71250; 72148

== ENCOUNTER → 2024-09-08 11:12 | Outpatient (CLI) | payer MEDICARE, OTHER, SELFPAY ==
[2024-03-14 03:03] VITALS: BMI 25.1
--- NOTE | 2024-09-08 11:14 | DI.CT.S_ITS ---
PROCEDURE: CT ANGIO CHEST ABDOMEN PELVIS INDICATIONS: AAA TECHNIQUE: Precontrast 5 mm thick sections acquired from the lung apices to the iliac crests. After the administration of intravenous contrast, 2.5 mm thick sections again acquired from the lung apices to the iliac crests. Maximum intensity projection (MIP) oblique sagittal and coronal reformats were then acquired. For radiation dose reduction, the following was used: automated exposure control. COMPARISON: [facility], CT, CT ANGIO CHEST ABDOMEN PELVIS, 01/04/2024, 12:39. FINDINGS: Image quality: Diagnostic. AORTA: Infrarenal aortic aneurysm, status post endovascular stenting. The sac measures 6.3 x 6.4 centimeter, previously 6.4 x 6.5 centimeter. No evidence of endoleak. CHEST: Lower Neck: No enlarged lymph nodes. Thyroid: No thyroid nodules which require sonographic evaluation. Axillae: No enlarged lymph nodes. Chest Wall: Unremarkable. Lungs and Pleura: No pneumothorax or pleural effusions. Advanced destructive emphysema. No suspicious pulmonary nodules. Small focus of fibrosis in the right lower lobe . Heart: Cardiomegaly. Prosthetic aortic valve. Thoracic Vessels: Dilated pulmonary arteries, measuring up to 3.6 centimeters, consistent with portal hypertension . Mediastinum and Harleen: No enlarged lymph nodes. Esophagus: No wall thickening. No hiatal hernia. ABDOMEN: Liver: No solid mass. Gallbladder: No radiopaque gallstones or wall thickening. Biliary ducts: No biliary dilation. Pancreas: No ductal dilation. Spleen: Size is within normal limits. Adrenal Glands: Hypertrophy of the adrenal glands, stable.. Kidneys and Ureters: No hydronephrosis. No solid mass. No complex renal cystic lesion which requires follow up. Stomach and Bowel: Normal colonic caliber, without significant wall thickening. Colonic diverticulosis without evidence of diverticulitis. Peritoneum: No abnormal intraperitoneal fluid. No free air. Ventral Wall: No hernia. Abdominal Nodes: No retroperitoneal or mesenteric adenopathy by size criteria. Vessels: Inferior vena cava is normal in size. PELVIS: Pelvic Organs: Unremarkable. Bladder: Unremarkable. Pelvic Nodes: No enlarged lymph nodes. Miscellaneous: No inguinal hernias are seen. Bones: Degenerative disc disease of the lumbar spine. Anterolisthesis of L4 on L5 due to a left-sided pars defect. Surgical fusion at L4-5. IMPRESSION: Infrarenal aortic aneurysm, status post endovascular stenting. The sac measures 6.3 x 6.4 centimeter, previously 6.4 x 6.5 centimeter. No evidence of endoleak. Pulmonary hypertension. Other chronic findings as above. Dictated by: Júnior Soto M.D. on 09/08/2024 at 13:35 Approved by: Júnior Soto M.D. on 09/08/2024 at 13:41
[2024-09-08 11:46] LABS: Estimated Glomerular Filt Rate > 60 mL/min (>60)
== END ==
PROVIDERS: PCP Internal Medicine; Referring Provider Internal Medicine Cardiovascular Disease; Visit Provider Internal Medicine Cardiovascular Disease
DX: I71.40 Abdominal aortic aneurysm, without rupture, unspecified (principal); I27.20 Pulmonary hypertension, unspecified; J43.9 Emphysema, unspecified; I51.7 Cardiomegaly; Z95.2 Presence of prosthetic heart valve; E27.9 Disorder of adrenal gland, unspecified; K57.90 Diverticulosis of intestine, part unspecified, without perforation or abscess without bleeding; M51.369 Other intervertebral disc degeneration, lumbar region without mention of lumbar back pain or lower extremity pain; M43.16 Spondylolisthesis, lumbar region; Z98.1 Arthrodesis status
CPT/HCPCS: 36415; 71275; 74174; 82565; Q9967